=== PATIENT | female | born 1980 | race Caucasian/White ===

== ENCOUNTER 2016-02-18 15:40 | Emergency (ER) | payer MEDICARE, MEDICAID ==
[~2016-02-18 15:40] MED LIST: ALBUTEROL0.83 MG/ML IH; CLARITIN 10MG T10 MG PO; COGENTIN0.5 MG PO; DULERA1 AR1 IH; FLEXERIL 1010 MG/TAB PO; FLONASE NASAL S16 GM NS; K-DUR 2020 MEQ PO; K-POTASSIUM CH20 ME1 PO; LASIX20 MG PO; LEVOTHYROXIN0.175 MG PO; MINIPRESS 5M5 MG/CAP PO; MINIPRESS5 MG PO; MIRTAZAPINE7.5 MG PO; PEPCID 20MG TAB20 MG PO; PREMARIN 0.3MG0.3 MG PO; PREMARIN0.9 MG PO; PRILOSEC 20MG20 MG PO; PROVENTIL0.09 MG/A1 IH; SINGULAIR10 MG PO; SYNTHROID0.05 MG/TA PO; TOPAMAX100 MG PO; TOPAMAX200 MG PO; VENTOLIN0.09 MG IH; VERAPAMIL240 MG PO; VERAPAMIL240 MG/TAB PO; VISTARIL25 MG PO; ZITHROMAX 250M250 MG PO; ZOLOFT 100MG100 MG PO; ZOLOFT100 MG PO; ZYPREXA ZYDIS10 MG PO; ZYPREXA15 MG PO; ZYRTEC10 MG PO
[2016-02-18] MEDS ORDERED: LEVOTHYROXINE0.2 MG PO (16:05)
[2016-02-18] MEDS ORDERED: ZYRTEC10 M3 PO (16:06)
[2016-02-18] MEDS ORDERED: FUROSEMIDE (16:06)
[2016-02-18] MEDS ORDERED: EFFEXOR PO (16:08)
[2016-02-18] MEDS ORDERED: LATUDA40 MG (16:08)
[2016-02-18] MEDS ORDERED: ZITHROMAX Z PA250 MG PO (16:26)
[2016-02-18 16:38] VITALS: BP 138/83
[2016-04-23] MEDS ORDERED: VRAYLAR3 MG PO (22:19)
== END 2016-02-18 16:40 | disposition home or self-care (01) ==
LOC: ED 15:40
DX: J40 Bronchitis, not specified as acute or chronic (principal); J45.909 Unspecified asthma, uncomplicated; Z87.891 Personal history of nicotine dependence

== ENCOUNTER 2016-04-23 22:45 | Emergency (ER) | payer MEDICARE, MEDICAID ==
[~2016-04-23 22:45] MED LIST changes: +EFFEXOR PO; +FUROSEMIDE; +LATUDA40 MG; +LEVOTHYROXINE0.2 MG PO; +VRAYLAR3 MG PO; +ZITHROMAX Z PA250 MG PO; +ZYRTEC10 M3 PO
[2016-04-23] MEDS ORDERED: DOXYCYCLINE 10100 MG PO (22:53)
== END 2016-04-23 23:06 | disposition home or self-care (01) ==
LOC: ED 22:45
DX: L03.012 Cellulitis of left finger (principal)

== ENCOUNTER 2016-04-25 22:06 | Emergency (ER) | payer MEDICARE, MEDICAID ==
[~2016-04-25 22:06] MED LIST changes: +DOXYCYCLINE 10100 MG PO
== END 2016-04-25 22:18 | disposition home or self-care (01) ==
LOC: ED 22:06
DX: L03.011 Cellulitis of right finger (principal); R11.0 Nausea

== ENCOUNTER 2016-05-28 22:53 | Emergency (ER) | payer MEDICARE, MEDICAID ==
[2016-05-29] MEDS ORDERED: TESSALON PERLE100 M1 PO (00:45)
[2016-05-29 01:02] VITALS: BP 127/75
== END 2016-05-29 00:56 | disposition home or self-care (01) ==
LOC: ED 22:53
DX: R05 Cough (principal); K21.9 Gastro-esophageal reflux disease without esophagitis; R07.89 Other chest pain; J45.909 Unspecified asthma, uncomplicated; F17.210 Nicotine dependence, cigarettes, uncomplicated

== ENCOUNTER 2016-06-28 22:48 | Emergency (ER) | payer MEDICARE, MEDICAID ==
[~2016-06-28] VITALS: Ht 167.6 cm; Wt 155.9 kg
[~2016-06-28 22:48] MED LIST changes: +TESSALON PERLE100 M1 PO
[2016-06-29] MEDS ORDERED: MACROBID 100 M100 MG PO (00:16)
[2016-06-29] MEDS ORDERED: PYRIDIUM100 M1 PO (00:18)
[2016-06-29 00:56] VITALS: BP 130/90
== END 2016-06-29 00:56 | disposition home or self-care (01) ==
LOC: ED 22:48
DX: N39.0 Urinary tract infection, site not specified (principal); I10 Essential (primary) hypertension; K21.9 Gastro-esophageal reflux disease without esophagitis; Z85.41 Personal history of malignant neoplasm of cervix uteri; F43.10 Post-traumatic stress disorder, unspecified; F60.9 Personality disorder, unspecified; F25.9 Schizoaffective disorder, unspecified; F41.9 Anxiety disorder, unspecified
CPT/HCPCS: J1885; J2405; J7030

== ENCOUNTER 2016-08-01 22:41 | Emergency (ER) | payer MEDICARE, MEDICAID ==
[~2016-08-01] VITALS: Ht 167.6 cm; Wt 157.7 kg
[~2016-08-01 22:41] MED LIST changes: +MACROBID 100 M100 MG PO; +PYRIDIUM100 M1 PO
[2016-08-01] MEDS ORDERED: LASIX20 M1 PO (23:28)
[2016-08-01] MEDS ORDERED: ULTRAM50 M1 PO (23:29)
[2016-08-02 01:02] VITALS: BP 111/72
== END 2016-08-02 00:48 | disposition home or self-care (01) ==
LOC: ED 22:41
DX: G44.009 Cluster headache syndrome, unspecified, not intractable (principal); G43.809 Other migraine, not intractable, without status migrainosus; J45.909 Unspecified asthma, uncomplicated; F32.9 Major depressive disorder, single episode, unspecified
CPT/HCPCS: J3030

== ENCOUNTER 2016-08-20 15:06 | Emergency (ER) | payer MEDICARE, MEDICAID ==
[~2016-08-20] VITALS: Wt 162.7 kg
[~2016-08-20 15:06] MED LIST changes: +LASIX20 M1 PO; +ULTRAM50 M1 PO
[2016-08-20 15:15] VITALS: BP 142/104
[2016-08-20] MEDS ORDERED: IMITREX100 M1 PO (15:15)
[2016-08-20] MEDS ORDERED: ZOFRAN8 MG PO (15:15)
== END 2016-08-20 17:30 | disposition home or self-care (01) ==
LOC: ED 15:06
DX: S93.401A Sprain of unspecified ligament of right ankle, initial encounter (principal); X50.1XXA Overexertion from prolonged static or awkward postures, initial encounter; Y92.008 Other place in unspecified non-institutional (private) residence as the place of occurrence of the external cause; F32.9 Major depressive disorder, single episode, unspecified; F25.9 Schizoaffective disorder, unspecified

== ENCOUNTER 2016-11-21 21:53 | Emergency (ER) | payer MEDICARE, MEDICAID ==
[~2016-11-21] VITALS: Ht 165.1 cm; Wt 165.0 kg
[~2016-11-21 21:53] MED LIST changes: +IMITREX100 M1 PO; +VRAYLAR6 MG PO; +ZOFRAN8 MG PO
[2016-11-21] MEDS ORDERED: LITHIUM 30300 MG/CAP PO (22:12)
[2016-11-21 22:13] VITALS: BP 157/102
[2016-11-21] MEDS ORDERED: TUSSIONEX PENN115 ML PO (22:29)
[2016-11-21] MEDS ORDERED: CEFDINIR300 MG PO (22:29)
== END 2016-11-21 22:45 | disposition home or self-care (01) ==
LOC: ED 21:53
DX: J01.90 Acute sinusitis, unspecified (principal); F17.200 Nicotine dependence, unspecified, uncomplicated; F99 Mental disorder, not otherwise specified

== ENCOUNTER 2016-12-11 16:32 | Emergency (ER) | payer MEDICARE, MEDICAID ==
[~2016-12-11] VITALS: Ht 167.6 cm; Wt 165.0 kg
[~2016-12-11 16:32] MED LIST changes: +CEFDINIR300 MG PO; +LITHIUM 30300 MG/CAP PO; +TUSSIONEX PENN115 ML PO
[2016-12-11] MEDS ORDERED: ALBUTEROL2.5 MG/3 M IH (17:12)
[2016-12-11] MEDS ORDERED: PROAIR HFA0.09 MG/AC PO (17:12)
[2016-12-11 18:03] LABS: BASO # 0.1 (0.02-0.10); EOS % 6.1 % (1.0-5.0); HEMATOCRIT 40.3 % (37.0-47.0); MEAN CELL VOLUME 89 fl (78-100); MEAN CORPUSCULAR HEMOGLOBIN 29 pg (27-31); MEAN CORPUSCULAR HGB CONC 32 g/dL (33-37); MEAN PLATELET VOLUME 8.7 fl (7.4-10.4); MONO # 0.7 (0.20-0.80); NEU # 5.2 (1.40-6.50); PLATELET COUNT 352 K/mm3 (130-400); RED BLOOD COUNT 4.52 M/mm3 (4.10-5.30); RED CELL DISTRIBUTION WIDTH 13.8 % (11.5-14.5); WHITE BLOOD COUNT 10.6 K/mm3 (4.8-10.8)
[2016-12-11 18:05] LABS: EOS # 0.7 (0.04-0.40)
[2016-12-11 18:13] LABS: BUN/CREATININE RATIO 3.2 (6.0-26.0); CALCIUM 8.8 mg/dL (8.4-10.2); POTASSIUM 3.6 mmol/L (3.6-5.0)
[2016-12-11] MEDS ORDERED: GOOD NEIGHBOR P20 M1 PO (18:24)
[2016-12-11] MEDS ORDERED: TESSALON PERLE100 M1 PO (18:55)
[2016-12-11 19:08] VITALS: BP 131/89
== END 2016-12-11 19:10 | disposition home or self-care (01) ==
LOC: ED 16:32
PROVIDERS: Family Medicine
DX: K21.9 Gastro-esophageal reflux disease without esophagitis (principal); E66.01 Morbid (severe) obesity due to excess calories; Z68.43 Body mass index [BMI] 50.0-59.9, adult; F99 Mental disorder, not otherwise specified; E89.0 Postprocedural hypothyroidism; Z85.41 Personal history of malignant neoplasm of cervix uteri; R60.0 Localized edema

== ENCOUNTER 2017-01-06 20:36 | Emergency (ER) | payer MEDICARE, MEDICAID ==
[~2017-01-06] VITALS: Ht 165.1 cm; Wt 160.5 kg
[~2017-01-06 20:36] MED LIST changes: +ALBUTEROL2.5 MG/3 M IH; +GOOD NEIGHBOR P20 M1 PO; +PROAIR HFA0.09 MG/AC PO
[2017-01-06 21:10] LABS: BASO # 0.1 (0.02-0.10); EOS % 6.3 % (1.0-5.0); HEMATOCRIT 41.5 % (37.0-47.0); HEMOGLOBIN 13.4 g/dL (12.5-16.0); LYMPH# 3.5 (1.50-4.00); MEAN CELL VOLUME 88 fl (78-100); MEAN CORPUSCULAR HEMOGLOBIN 28 pg (27-31); MEAN CORPUSCULAR HGB CONC 32 g/dL (33-37); MEAN PLATELET VOLUME 8.8 fl (7.4-10.4); MONO # 0.8 (0.20-0.80); NEU # 7.9 (1.40-6.50); PLATELET COUNT 312 K/mm3 (130-400); RED BLOOD COUNT 4.73 M/mm3 (4.10-5.30); RED CELL DISTRIBUTION WIDTH 14.3 % (11.5-14.5); WHITE BLOOD COUNT 13.1 K/mm3 (4.8-10.8)
[2017-01-06 21:15] LABS: EOS # 0.8 (0.04-0.40)
[2017-01-06 21:22] LABS: ALBUMIN 3.9 g/dL (3.5-5.0); BUN/CREATININE RATIO 5.6 (6.0-26.0); CALCIUM 8.9 mg/dL (8.4-10.2); POTASSIUM 3.8 mmol/L (3.6-5.0); TOTAL BILIRUBIN 0.5 mg/dL (0.2-1.3)
[2017-01-06 21:55] LABS: URINE APPEARANCE HAZY; URINE BILIRUBIN NEGATIVE (NEGATIVE); URINE BLOOD NEGATIVE (NEGATIVE); URINE COLOR YELLOW; URINE GLUCOSE NEGATIVE (NEGATIVE); URINE KETONE NEGATIVE (NEGATIVE); URINE LEUKOCYTE ESTERASE 1+ (NEGATIVE); URINE NITRATE NEGATIVE (NEGATIVE); URINE PROTEIN(semi-quant) NEGATIVE (NEGATIVE); URINE UROBILINOGEN NORMAL (NORMAL)
[2017-01-06] MEDS ORDERED: ONDANSETRON ODT8 MG PO (22:00)
[2017-01-06] MEDS ORDERED: NORCO 325 MG-51 TA1 PO (22:00)
[2017-01-06] MEDS ORDERED: CARAFATE1 GM/10 M1 PO (22:06)
[2017-01-06 22:13] VITALS: BP 135/98
== END 2017-01-06 22:10 | disposition home or self-care (01) ==
LOC: ED 20:36
PROVIDERS: Family Medicine
DX: K52.9 Noninfective gastroenteritis and colitis, unspecified (principal); K21.9 Gastro-esophageal reflux disease without esophagitis; K29.70 Gastritis, unspecified, without bleeding; N39.0 Urinary tract infection, site not specified; E89.0 Postprocedural hypothyroidism; F99 Mental disorder, not otherwise specified; Z87.891 Personal history of nicotine dependence

== ENCOUNTER 2017-02-17 14:13 | Emergency (ER) | payer MEDICARE ==
[~2017-02-17] VITALS: Ht 165.1 cm; Wt 167.7 kg
[~2017-02-17 14:13] MED LIST changes: +CARAFATE1 GM/10 M1 PO; +K-TAB20 MEQ PO; +KLONOPIN 1MG1 MG PO; +METOCLOPRAMIDE10 M5 PO; +NORCO 325 MG-51 TA1 PO; +ONDANSETRON ODT8 MG PO
[2017-02-17 15:02] LABS: BASO # 0.1 (0.02-0.10); EOS % 6.1 % (1.0-5.0); HEMATOCRIT 41.6 % (37.0-47.0); HEMOGLOBIN 12.8 g/dL (12.5-16.0); LYMPH# 3.7 (1.50-4.00); MEAN CELL VOLUME 91 fl (78-100); MEAN CORPUSCULAR HEMOGLOBIN 28 pg (27-31); MEAN CORPUSCULAR HGB CONC 31 g/dL (33-37); MEAN PLATELET VOLUME 8.7 fl (7.4-10.4); MONO # 0.7 (0.20-0.80); NEU # 5.9 (1.40-6.50); PLATELET COUNT 352 K/mm3 (130-400); RED BLOOD COUNT 4.57 M/mm3 (4.10-5.30); RED CELL DISTRIBUTION WIDTH 14.9 % (11.5-14.5)
[2017-02-17 15:19] LABS: EOS # 0.7 (0.04-0.40)
[2017-02-17 15:47] LABS: ALBUMIN 3.7 g/dL (3.5-5.0); ALT/SGPT 34 U/L (9-52); AST-SGOT 25 U/L (14-36); BUN/CREATININE RATIO 3.9 (6.0-26.0); CALCIUM 8.8 mg/dL (8.4-10.2); GLUCOSE 92 mg/dL (65-105); TOTAL BILIRUBIN 0.4 mg/dL (0.2-1.3); TOTAL PROTEIN 6.9 g/dL (6.3-8.2)
[2017-02-17 15:57] LABS: ACETAMINOPHEN < 4 ug/mL (10-30); ALCOHOL IN-HOUSE < 10 mg/dL
[2017-02-17 15:58] LABS: CARBON DIOXIDE 28 mmol/L (22-30); POTASSIUM 3.4 mmol/L (3.6-5.0); SODIUM 145 mmol/L (137-145)
[2017-02-17 16:24] LABS: URINE COLOR PALE YELLOW
[2017-02-17 16:26] LABS: URINE APPEARANCE CLEAR
[2017-02-17 16:27] LABS: PH-URINE 6.5 (5.0 - 8.0); URINE BILIRUBIN NEGATIVE (NEGATIVE); URINE BLOOD NEGATIVE (NEGATIVE); URINE GLUCOSE NEGATIVE (NEGATIVE); URINE KETONE NEGATIVE (NEGATIVE); URINE LEUKOCYTE ESTERASE NEGATIVE (NEGATIVE); URINE NITRATE NEGATIVE (NEGATIVE); URINE PROTEIN(semi-quant) TRACE mg/dL (NEGATIVE); URINE UROBILINOGEN NORMAL (NORMAL); URINE WBC 0-1 /hpf (0-3)
[2017-02-18 00:30] VITALS: BP 140/90
== END 2017-02-18 00:37 ==
LOC: ED 14:13
PROVIDERS: Physician Assistant
DX: T42.4X2A Poisoning by benzodiazepines, intentional self-harm, initial encounter (principal); K21.9 Gastro-esophageal reflux disease without esophagitis; K31.84 Gastroparesis; E03.9 Hypothyroidism, unspecified; F31.9 Bipolar disorder, unspecified; F41.9 Anxiety disorder, unspecified; F25.9 Schizoaffective disorder, unspecified; F60.3 Borderline personality disorder; Z87.891 Personal history of nicotine dependence; Z88.6 Allergy status to analgesic agent; Z88.3 Allergy status to other anti-infective agents; Z88.0 Allergy status to penicillin; Z88.2 Allergy status to sulfonamides; Z88.8 Allergy status to other drugs, medicaments and biological substances; Z91.018 Allergy to other foods

== ENCOUNTER 2017-03-03 00:13 | Emergency (ER) | payer MEDICARE ==
[~2017-03-03] VITALS: Ht 165.1 cm; Wt 171.4 kg
[~2017-03-03 00:13] MED LIST changes: +BENZTROPINE1 MG PO; -COGENTIN0.5 MG PO; -MINIPRESS 5M5 MG/CAP PO; +MINIPRESS5 M1 PO
[2017-03-03] MEDS ORDERED: POTASSIUM CHLO20 ME3 PO (00:21)
[2017-03-03] MEDS ORDERED: LITHOBID PO (00:22)
[2017-03-03] MEDS ORDERED: SYNTHROID175 MCG PO (00:23)
[2017-03-03] MEDS ORDERED: PHENERGAN 25 TA25 MG PO (00:25)
[2017-03-03 01:38] LABS: BASO # 0.1 (0.02-0.10); EOS % 6.2 % (1.0-5.0); HEMOGLOBIN 12.8 g/dL (12.5-16.0); MEAN CELL VOLUME 91 fl (78-100); MEAN CORPUSCULAR HEMOGLOBIN 28 pg (27-31); MEAN CORPUSCULAR HGB CONC 31 g/dL (33-37); MEAN PLATELET VOLUME 8.8 fl (7.4-10.4); MONO # 0.7 (0.20-0.80); NEU # 6.8 (1.40-6.50); PLATELET COUNT 373 K/mm3 (130-400); RED BLOOD COUNT 4.64 M/mm3 (4.10-5.30); RED CELL DISTRIBUTION WIDTH 15.1 % (11.5-14.5); WHITE BLOOD COUNT 12.9 K/mm3 (4.8-10.8)
[2017-03-03 01:41] LABS: EOS # 0.8 (0.04-0.40); LYMPH# 4.6 (1.50-4.00)
[2017-03-03] MEDS ORDERED: ZITHROMAX 250M250 MG PO (02:15)
[2017-03-03] MEDS ORDERED: PREDNISONE20 MG PO (02:17)
[2017-03-03] MEDS ORDERED: XOPENEX 3 ML3 M3 IH (02:27)
[2017-03-03 02:40] VITALS: BP 123/82
== END 2017-03-03 02:40 | disposition home or self-care (01) ==
LOC: ED 00:13
PROVIDERS: Nurse Practitioner Family
DX: J45.901 Unspecified asthma with (acute) exacerbation (principal); J20.9 Acute bronchitis, unspecified; Z87.891 Personal history of nicotine dependence; F31.9 Bipolar disorder, unspecified; F41.9 Anxiety disorder, unspecified; F25.9 Schizoaffective disorder, unspecified
CPT/HCPCS: J7512

== ENCOUNTER → 2017-03-06 | Outpatient (CLI) | payer MEDICARE ==
[~2017-03-06] VITALS: Ht 165.1 cm; Wt 171.4 kg
[~2017-03-06] MED LIST changes: +LITHOBID PO; +PHENERGAN 25 TA25 MG PO; +POTASSIUM CHLO20 ME3 PO; +PREDNISONE20 MG PO; +SYNTHROID175 MCG PO; +XOPENEX 3 ML3 M3 IH
--- NOTE | 2017-03-06 10:40 | NUR ---
# 20 GAUGE TO RIGHT AC, LAB DRAWN, IVF INITIATED, PATIENT VERY TAKLKATIVE, STATING "I DONT KNOW WHY I HAVE TO DO THIS, I DONT THINK IM DEHYDRATEDM BUT THAT NURSE WANTED ME TO COME, AND SHE TOLD ME I MAY HAVE TO STAY OVERNIGHT", PATIENT DOES STATE SHE HAS BEEN SOMEWHAT ON CLEAR LIQUIDS AT HOME, DESCRIBES OCCASIONAL EMESIS AND ONE TIME DIARRHEA IN THE NIGHT.
[2017-03-06 11:07] LABS: HEMATOCRIT 40.5 % (37.0-47.0); HEMOGLOBIN 12.3 g/dL (12.5-16.0); RED BLOOD COUNT 4.42 M/mm3 (4.10-5.30); RED CELL DISTRIBUTION WIDTH 14.8 % (11.5-14.5); WHITE BLOOD COUNT 14.6 K/mm3 (4.8-10.8)
--- NOTE | 2017-03-06 11:11 | NUR ---
ua collected, spec to lab
[2017-03-06 11:13] VITALS: BP 163/109
[2017-03-06 11:31] LABS: ALBUMIN 3.8 g/dL (3.5-5.0); BUN/CREATININE RATIO 6.7 (6.0-26.0); CALCIUM 8.6 mg/dL (8.4-10.2); POTASSIUM 3.1 mmol/L (3.6-5.0); TOTAL BILIRUBIN 0.3 mg/dL (0.2-1.3); TOTAL PROTEIN 6.5 g/dL (6.3-8.2)
--- NOTE | 2017-03-06 11:38 | NUR ---
SPRITE GIVEN, PATIENT ENCOURAGED TO SIP SLOWLY, EMESIS BAG GIVEN, SHE HAS MADE NO MENTION PRIOR TO THIS OF ANY NAUSEA OR NEED TO HAVE BM
[2017-03-06 11:47] LABS: URINE APPEARANCE HAZY; URINE BILIRUBIN NEGATIVE (NEGATIVE); URINE BLOOD NEGATIVE (NEGATIVE); URINE COLOR YELLOW; URINE GLUCOSE NEGATIVE (NEGATIVE); URINE KETONE NEGATIVE (NEGATIVE); URINE LEUKOCYTE ESTERASE 1+ (NEGATIVE); URINE MUCUS PRESENT (NOT PRESENT); URINE NITRATE NEGATIVE (NEGATIVE); URINE PROTEIN(semi-quant) TRACE mg/dL (NEGATIVE); URINE UROBILINOGEN NORMAL (NORMAL)
--- NOTE | 2017-03-06 12:13 | NUR ---
Flaquito LAZCANO APRN NOTIFIED OF OUTPATIENT RESULTS, ORDERS
--- NOTE | 2017-03-06 12:27 | NUR ---
PATIENT GIVEN CHKN NOODLE SOUP, CRACKERS AND AN ADDITIONAL SPRITE, SHE TAKES ALL THIS.
[2017-03-06 13:03] VITALS: BP 141/62
--- NOTE | 2017-03-06 13:04 | NUR ---
IV DC'D, BANDAID TO SITE, INSTRUCTIONS TO CONTINUE/MAINTAIN CLEAR LIQUID-BLAND DIET UNTIL NAUSEA/VOMITING CEASES, RETURN VISIT WITH Flaquito LAZCANO THIS MONDAY AT 0930. PATIENT AND SPOUSE AGREE, DISMISSED AMBULATORY TO CARE OF SPOUSE, SHE CONTINUES TO DENY NAUSEA OR NEED FOR BM, STATES SHES GOING TO GO HOME AND NAP
== END ==
LOC: AMSURD 10:15
PROVIDERS: Nurse Practitioner Family
DX: N39.0 Urinary tract infection, site not specified (principal); E86.0 Dehydration; R11.10 Vomiting, unspecified; R19.7 Diarrhea, unspecified
CPT/HCPCS: J2405; J7030

== ENCOUNTER 2017-03-22 17:19 | Emergency (ER) | payer MEDICARE ==
[2017-03-22] MEDS ORDERED: VIBRAMYCIN HYC100 MG PO (17:43)
[2017-03-22] MEDS ORDERED: IPRATROPIUM BROM3 M1 IH (18:00)
[2017-03-22] MEDS ORDERED: PREDNISONE20 M1 PO (18:00)
[2017-03-22 18:14] VITALS: BP 136/83
== END 2017-03-22 18:19 | disposition home or self-care (01) ==
LOC: ED 17:19
DX: J20.9 Acute bronchitis, unspecified (principal); I10 Essential (primary) hypertension; F17.200 Nicotine dependence, unspecified, uncomplicated; J45.909 Unspecified asthma, uncomplicated; F99 Mental disorder, not otherwise specified; Z88.6 Allergy status to analgesic agent; Z88.1 Allergy status to other antibiotic agents; Z88.0 Allergy status to penicillin; Z88.2 Allergy status to sulfonamides; Z88.8 Allergy status to other drugs, medicaments and biological substances; Z91.018 Allergy to other foods
CPT/HCPCS: J7512

== ENCOUNTER 2017-03-28 16:58 | Emergency (ER) | payer MEDICARE ==
[~2017-03-28 16:58] MED LIST changes: +IPRATROPIUM BROM3 M1 IH; +PREDNISONE20 M1 PO; +VIBRAMYCIN HYC100 MG PO
[2017-03-28 18:03] LABS: BASO # 0.1 (0.02-0.10); EOS % 4.6 % (1.0-5.0); HEMATOCRIT 43.2 % (37.0-47.0); HEMOGLOBIN 13.3 g/dL (12.5-16.0); LYMPH# 4.1 (1.50-4.00); MEAN CELL VOLUME 91 fl (78-100); MEAN CORPUSCULAR HEMOGLOBIN 28 pg (27-31); MEAN CORPUSCULAR HGB CONC 31 g/dL (33-37); MEAN PLATELET VOLUME 8.5 fl (7.4-10.4); MONO # 0.8 (0.20-0.80); PLATELET COUNT 384 K/mm3 (130-400); RED BLOOD COUNT 4.73 M/mm3 (4.10-5.30); RED CELL DISTRIBUTION WIDTH 15.3 % (11.5-14.5); WHITE BLOOD COUNT 16.2 K/mm3 (4.8-10.8)
[2017-03-28 18:12] LABS: EOS # 0.7 (0.04-0.40); NEU # 10.5 (1.40-6.50)
[2017-03-28 18:15] LABS: ALBUMIN 3.8 g/dL (3.5-5.0); BUN/CREATININE RATIO 4.9 (6.0-26.0); POTASSIUM 3.9 mmol/L (3.6-5.0); TOTAL BILIRUBIN 0.3 mg/dL (0.2-1.3); TOTAL PROTEIN 7.1 g/dL (6.3-8.2)
[2017-03-28 18:52] LABS: CALCIUM 8.7 mg/dL (8.4-10.2)
[2017-03-28 19:50] LABS: URINE APPEARANCE HAZY; URINE COLOR LT YELLOW
[2017-03-28 19:57] LABS: PH-URINE 6.5 (5.0 - 8.0); URINE BILIRUBIN NEGATIVE (NEGATIVE); URINE BLOOD NEGATIVE (NEGATIVE); URINE GLUCOSE NEGATIVE (NEGATIVE); URINE KETONE NEGATIVE (NEGATIVE); URINE LEUKOCYTE ESTERASE NEGATIVE (NEGATIVE); URINE NITRATE NEGATIVE (NEGATIVE); URINE PROTEIN(semi-quant) NEGATIVE (NEGATIVE); URINE UROBILINOGEN NORMAL (NORMAL)
[2017-03-28 20:11] VITALS: BP 157/104
== END 2017-03-28 20:11 | disposition home or self-care (01) ==
LOC: ED 16:58
PROVIDERS: Nurse Practitioner; Physician Assistant
DX: J98.9 Respiratory disorder, unspecified (principal); B34.9 Viral infection, unspecified; F25.1 Schizoaffective disorder, depressive type; F41.9 Anxiety disorder, unspecified; F43.10 Post-traumatic stress disorder, unspecified; F60.9 Personality disorder, unspecified; Z87.891 Personal history of nicotine dependence; E66.01 Morbid (severe) obesity due to excess calories; Z88.6 Allergy status to analgesic agent; Z88.1 Allergy status to other antibiotic agents; Z88.0 Allergy status to penicillin; Z88.2 Allergy status to sulfonamides; Z88.8 Allergy status to other drugs, medicaments and biological substances; Z91.018 Allergy to other foods

== ENCOUNTER 2017-04-08 15:42 | Emergency (ER) | payer MEDICARE ==
[~2017-04-08] VITALS: Wt 167.2 kg
[~2017-04-08 15:42] MED LIST changes: +KLONOPIN 0.5MG0.5 MG PO; -KLONOPIN 1MG1 MG PO
[2017-04-08 16:57] LABS: BUN/CREATININE RATIO 4.1 (6.0-26.0); CALCIUM 8.7 mg/dL (8.4-10.2)
[2017-04-08 16:58] LABS: POTASSIUM 2.8 mmol/L (3.6-5.0)
[2017-04-08 20:35] LABS: HEMATOCRIT 40.7 % (37.0-47.0)
[2017-04-08 20:58] VITALS: BP 152/98
== END 2017-04-08 20:58 | disposition home or self-care (01) ==
LOC: ED 15:42
PROVIDERS: Family Medicine
DX: E87.6 Hypokalemia (principal); I10 Essential (primary) hypertension; F31.9 Bipolar disorder, unspecified; K21.9 Gastro-esophageal reflux disease without esophagitis; E66.9 Obesity, unspecified; R20.2 Paresthesia of skin; R53.1 Weakness
CPT/HCPCS: J3480

== ENCOUNTER 2017-04-11 19:52 | Emergency (ER) | payer MEDICARE ==
[~2017-04-11] VITALS: Ht 167.6 cm; Wt 166.8 kg
[2017-04-11 20:36] LABS: BASO # 0.1 (0.02-0.10); EOS # 0.4 (0.04-0.40); EOS % 3.4 % (1.0-5.0); HEMATOCRIT 41.1 % (37.0-47.0); LYMPH# 3.3 (1.50-4.00); MEAN CELL VOLUME 90 fl (78-100); MEAN CORPUSCULAR HEMOGLOBIN 28 pg (27-31); MEAN CORPUSCULAR HGB CONC 32 g/dL (33-37); MONO # 0.8 (0.20-0.80); NEU # 8.2 (1.40-6.50); PLATELET COUNT 406 K/mm3 (130-400); RED BLOOD COUNT 4.58 M/mm3 (4.10-5.30); RED CELL DISTRIBUTION WIDTH 15.7 % (11.5-14.5); WHITE BLOOD COUNT 12.8 K/mm3 (4.8-10.8)
[2017-04-11 20:50] LABS: ALBUMIN 3.8 g/dL (3.5-5.0); ALT/SGPT 32 U/L (9-52); AST-SGOT 29 U/L (14-36); BUN/CREATININE RATIO 4.1 (6.0-26.0); CALCIUM 9.1 mg/dL (8.4-10.2); CARBON DIOXIDE 25 mmol/L (22-30); GLUCOSE 103 mg/dL (65-105); POTASSIUM 3.5 mmol/L (3.6-5.0); SODIUM 145 mmol/L (137-145); TOTAL BILIRUBIN 0.3 mg/dL (0.2-1.3)
[2017-04-11 20:52] LABS: ALCOHOL IN-HOUSE < 10 mg/dL
[2017-04-11 20:54] LABS: URINE APPEARANCE CLEAR; URINE BILIRUBIN NEGATIVE (NEGATIVE); URINE BLOOD NEGATIVE (NEGATIVE); URINE COLOR YELLOW; URINE GLUCOSE NEGATIVE (NEGATIVE); URINE KETONE NEGATIVE (NEGATIVE); URINE LEUKOCYTE ESTERASE NEGATIVE (NEGATIVE); URINE NITRATE NEGATIVE (NEGATIVE); URINE PROTEIN(semi-quant) NEGATIVE (NEGATIVE); URINE UROBILINOGEN NORMAL (NORMAL)
[2017-04-11 20:56] LABS: URINE MUCUS PRESENT (NOT PRESENT); URINE WBC 0-1 /hpf (0-3)
[2017-04-11 22:02] VITALS: BP 160/90
== END 2017-04-11 22:02 | disposition home or self-care (01) ==
LOC: ED 19:52
PROVIDERS: Nurse Practitioner
DX: F32.9 Major depressive disorder, single episode, unspecified (principal); R45.851 Suicidal ideations; I10 Essential (primary) hypertension; F20.9 Schizophrenia, unspecified; F43.10 Post-traumatic stress disorder, unspecified; F60.3 Borderline personality disorder; Z85.41 Personal history of malignant neoplasm of cervix uteri; Z90.710 Acquired absence of both cervix and uterus; E89.0 Postprocedural hypothyroidism; Z91.5 Personal history of self-harm; Z87.891 Personal history of nicotine dependence; Z88.6 Allergy status to analgesic agent; Z88.1 Allergy status to other antibiotic agents; Z88.0 Allergy status to penicillin; Z88.2 Allergy status to sulfonamides; Z88.8 Allergy status to other drugs, medicaments and biological substances; Z91.018 Allergy to other foods

== ENCOUNTER 2017-04-20 23:02 | Emergency (ER) | payer MEDICARE ==
[~2017-04-20] VITALS: Ht 167.6 cm; Wt 164.1 kg
[2017-04-20] MEDS ORDERED: KLOR-CON 1010 MEQ PO (23:18)
[2017-04-21 00:17] LABS: BASO # 0.1 (0.02-0.10); EOS # 0.5 (0.04-0.40); EOS % 4.2 % (1.0-5.0); HEMATOCRIT 39.8 % (37.0-47.0); HEMOGLOBIN 12.6 g/dL (12.5-16.0); LYMPH# 2.9 (1.50-4.00); MEAN CELL VOLUME 91 fl (78-100); MEAN CORPUSCULAR HEMOGLOBIN 29 pg (27-31); MEAN CORPUSCULAR HGB CONC 32 g/dL (33-37); MEAN PLATELET VOLUME 8.9 fl (7.4-10.4); MONO # 0.7 (0.20-0.80); PLATELET COUNT 351 K/mm3 (130-400); RED CELL DISTRIBUTION WIDTH 14.9 % (11.5-14.5); WHITE BLOOD COUNT 12.1 K/mm3 (4.8-10.8)
[2017-04-21 00:24] LABS: BUN/CREATININE RATIO 3.8 (6.0-26.0); CALCIUM 8.7 mg/dL (8.4-10.2); CARBON DIOXIDE 25 mmol/L (22-30); GLUCOSE 103 mg/dL (65-105); POTASSIUM 3.6 mmol/L (3.6-5.0); SODIUM 138 mmol/L (137-145)
[2017-04-21 00:30] LABS: ACETAMINOPHEN < 4 ug/mL (10-30); ALCOHOL IN-HOUSE < 10 mg/dL
[2017-04-21 00:35] LABS: URINE APPEARANCE CLEAR; URINE BILIRUBIN NEGATIVE (NEGATIVE); URINE BLOOD NEGATIVE (NEGATIVE); URINE COLOR YELLOW; URINE GLUCOSE NEGATIVE (NEGATIVE); URINE KETONE NEGATIVE (NEGATIVE); URINE LEUKOCYTE ESTERASE NEGATIVE (NEGATIVE); URINE NITRATE NEGATIVE (NEGATIVE); URINE PROTEIN(semi-quant) NEGATIVE (NEGATIVE); URINE UROBILINOGEN NORMAL (NORMAL); URINE WBC 0-1 /hpf (0-3)
[2017-04-21 05:17] VITALS: BP 134/75
== END 2017-04-21 05:17 ==
LOC: ED 23:02
PROVIDERS: Nurse Practitioner Family
DX: R45.851 Suicidal ideations (principal); F25.9 Schizoaffective disorder, unspecified; Z91.5 Personal history of self-harm; F31.9 Bipolar disorder, unspecified; F41.9 Anxiety disorder, unspecified; F43.10 Post-traumatic stress disorder, unspecified; Z85.41 Personal history of malignant neoplasm of cervix uteri; E89.0 Postprocedural hypothyroidism; Z88.6 Allergy status to analgesic agent; Z88.4 Allergy status to anesthetic agent; Z88.0 Allergy status to penicillin; Z88.2 Allergy status to sulfonamides; Z88.8 Allergy status to other drugs, medicaments and biological substances; Z91.018 Allergy to other foods

== ENCOUNTER 2017-05-01 19:23 | Emergency (ER) | payer MEDICARE ==
[~2017-05-01] VITALS: Ht 167.6 cm; Wt 163.6 kg
[~2017-05-01 19:23] MED LIST changes: +KLOR-CON 1010 MEQ PO
[2017-05-01 19:58] LABS: HEMATOCRIT 32.7 % (37.0-47.0); HEMOGLOBIN 10.1 g/dL (12.5-16.0); MEAN CELL VOLUME 93 fl (78-100); MEAN CORPUSCULAR HEMOGLOBIN 29 pg (27-31); MEAN CORPUSCULAR HGB CONC 31 g/dL (33-37); MEAN PLATELET VOLUME 9.4 fl (7.4-10.4); PLATELET COUNT 480 K/mm3 (130-400); RED BLOOD COUNT 3.53 M/mm3 (4.10-5.30); RED CELL DISTRIBUTION WIDTH 15.7 % (11.5-14.5); WHITE BLOOD COUNT 17.3 K/mm3 (4.8-10.8)
[2017-05-01] MEDS ORDERED: LASIX40 M1 PO (20:08)
[2017-05-01] MEDS ORDERED: LEVOTHYROXINE0.15 MG PO (20:09)
[2017-05-01] MEDS ORDERED: NORCO 325 MG-51 TA1 PO ×2 (20:10→20:11)
[2017-05-01] MEDS ORDERED: TOPAMAX100 MG PO (20:11)
[2017-05-01] MEDS ORDERED: DOXYCYCLINE MO100 M3 PO (20:12)
[2017-05-01] MEDS ORDERED: SAPHRIS5 MG PO (20:13)
[2017-05-01] MEDS ORDERED: OMEPRAZOLE40 MG PO (20:13)
[2017-05-01 20:18] LABS: LYMPHOCYTE 22 % (20-51); MONOCYTE 6 % (3-10); NEUTROPHILS 68 % (42-75)
[2017-05-01 20:30] VITALS: BP 156/80
== END 2017-05-01 20:30 | disposition home or self-care (01) ==
LOC: ED 19:23
PROVIDERS: Nurse Practitioner Primary Care
DX: L02.32 Furuncle of buttock (principal); R60.0 Localized edema; F99 Mental disorder, not otherwise specified; Z88.6 Allergy status to analgesic agent; Z88.1 Allergy status to other antibiotic agents; Z88.0 Allergy status to penicillin; Z88.2 Allergy status to sulfonamides; Z88.8 Allergy status to other drugs, medicaments and biological substances; Z91.018 Allergy to other foods

== ENCOUNTER 2017-06-09 16:03 | Emergency (ER) | payer MEDICARE ==
[~2017-06-09] VITALS: Ht 165.1 cm; Wt 156.4 kg
[~2017-06-09 16:03] MED LIST changes: +DOXYCYCLINE MO100 M3 PO; +LASIX40 M1 PO; +LEVOTHYROXINE0.15 MG PO; +PROTONIX TR40 M1 PO; +SAPHRIS10 MG
[2017-06-09] MEDS ORDERED: SPIRONOLACTONE50 M1 PO (16:22)
[2017-06-09] MEDS ORDERED: BENADRYL 5050 MG/CAP PO (16:23)
[2017-06-09] MEDS ORDERED: LEXAPRO5 MG (16:23)
[2017-06-09 17:11] LABS: BASO # 0.1 (0.02-0.10); EOS # 0.3 (0.04-0.40); EOS % 2.1 % (1.0-5.0); HEMATOCRIT 43.3 % (37.0-47.0); HEMOGLOBIN 12.8 g/dL (12.5-16.0); MEAN CELL VOLUME 93 fl (78-100); MEAN CORPUSCULAR HEMOGLOBIN 28 pg (27-31); MEAN CORPUSCULAR HGB CONC 30 g/dL (33-37); MEAN PLATELET VOLUME 9.1 fl (7.4-10.4); MONO # 0.8 (0.20-0.80); RED BLOOD COUNT 4.65 M/mm3 (4.10-5.30); RED CELL DISTRIBUTION WIDTH 16.6 % (11.5-14.5); WHITE BLOOD COUNT 14.2 K/mm3 (4.8-10.8)
[2017-06-09 17:30] LABS: PLATELET COUNT 523 K/mm3 (130-400)
[2017-06-09 17:33] LABS: ALBUMIN 3.8 g/dL (3.5-5.0); BUN/CREATININE RATIO 4.1 (6.0-26.0); POTASSIUM 3.1 mmol/L (3.6-5.0); TOTAL BILIRUBIN 0.4 mg/dL (0.2-1.3); TOTAL PROTEIN 7.3 g/dL (6.3-8.2)
[2017-06-09 17:39] LABS: URINE APPEARANCE CLOUDY; URINE BILIRUBIN NEGATIVE (NEGATIVE); URINE BLOOD NEGATIVE (NEGATIVE); URINE COLOR YELLOW; URINE GLUCOSE NEGATIVE (NEGATIVE); URINE KETONE NEGATIVE (NEGATIVE); URINE NITRATE NEGATIVE (NEGATIVE); URINE PROTEIN(semi-quant) 2+ mg/dL (NEGATIVE); URINE UROBILINOGEN NORMAL (NORMAL)
[2017-06-09 17:40] LABS: URINE LEUKOCYTE ESTERASE 1+ (NEGATIVE)
[2017-06-09] MEDS ORDERED: PHENERGAN 25 TA25 MG PO (20:17)
[2017-06-09] MEDS ORDERED: POTASSIUM CHLO10 ME7 PO (20:20)
[2017-06-09 20:59] VITALS: BP 134/91
== END 2017-06-09 20:59 | disposition home or self-care (01) ==
LOC: ED 16:03
PROVIDERS: Physician Assistant
DX: R11.2 Nausea with vomiting, unspecified (principal); R19.7 Diarrhea, unspecified; E87.6 Hypokalemia; F32.9 Major depressive disorder, single episode, unspecified; F41.9 Anxiety disorder, unspecified; F43.10 Post-traumatic stress disorder, unspecified; F60.9 Personality disorder, unspecified; F25.9 Schizoaffective disorder, unspecified; Z87.891 Personal history of nicotine dependence; E66.01 Morbid (severe) obesity due to excess calories; Z68.43 Body mass index [BMI] 50.0-59.9, adult; R10.816 Epigastric abdominal tenderness; R10.814 Left lower quadrant abdominal tenderness
CPT/HCPCS: J2405; J3490; J7030; Q9967

== ENCOUNTER → 2017-07-15 | Outpatient (CLI) | payer MEDICARE, MEDICAID ==
[~2017-07-15] MED LIST changes: +BENADRYL 5050 MG/CAP PO; +LEXAPRO5 MG; +POTASSIUM CHLO10 ME7 PO; +SPIRONOLACTONE50 M1 PO; +TRAMADOL 50 MG TAB PO; +ZYPREXA10 M1 PO
== END ==
LOC: RAD 19:20
DX: S93.401A Sprain of unspecified ligament of right ankle, initial encounter (principal)

== ENCOUNTER 2017-07-17 23:03 | Emergency (ER) | payer MEDICARE, MEDICAID ==
[~2017-07-17 23:03] MED LIST changes: -TRAMADOL 50 MG TAB PO; -ZYPREXA10 M1 PO
[2017-07-17] MEDS ORDERED: ZYPREXA10 M1 PO (23:13)
[2017-07-17] MEDS ORDERED: TRAMADOL 50 MG TAB PO (23:22)
[2017-07-17] MEDS ORDERED: KLONOPIN 0.5MG0.5 MG PO (23:22)
[2017-07-17 23:44] LABS: BASO # 0.1 (0.02-0.10); EOS % 7.4 % (1.0-5.0); HEMATOCRIT 41.2 % (37.0-47.0); HEMOGLOBIN 12.4 g/dL (12.5-16.0); LYMPH# 3.4 (1.50-4.00); MEAN CELL VOLUME 88 fl (78-100); MEAN CORPUSCULAR HEMOGLOBIN 27 pg (27-31); MEAN CORPUSCULAR HGB CONC 30 g/dL (33-37); MEAN PLATELET VOLUME 9.1 fl (7.4-10.4); MONO # 0.7 (0.20-0.80); NEU # 5.1 (1.40-6.50); PLATELET COUNT 399 K/mm3 (130-400); RED BLOOD COUNT 4.68 M/mm3 (4.10-5.30); RED CELL DISTRIBUTION WIDTH 15.4 % (11.5-14.5)
[2017-07-17 23:50] LABS: EOS # 0.7 (0.04-0.40)
[2017-07-17 23:59] LABS: ALBUMIN 3.8 g/dL (3.5-5.0); ALT/SGPT 33 U/L (9-52); AST-SGOT 47 U/L (14-36); BUN/CREATININE RATIO 3.7 (6.0-26.0); CALCIUM 8.3 mg/dL (8.4-10.2); CARBON DIOXIDE 24 mmol/L (22-30); GLUCOSE 95 mg/dL (65-105); POTASSIUM 3.5 mmol/L (3.6-5.0); SODIUM 142 mmol/L (137-145); TOTAL BILIRUBIN 0.4 mg/dL (0.2-1.3); TOTAL PROTEIN 7.4 g/dL (6.3-8.2)
[2017-07-18 00:06] LABS: ACETAMINOPHEN < 4 ug/mL (10-30); ALCOHOL IN-HOUSE < 10 mg/dL
[2017-07-18 08:35] VITALS: BP 128/88
== END 2017-07-18 09:27 ==
LOC: ED 23:03
PROVIDERS: Nurse Practitioner Primary Care
DX: R45.851 Suicidal ideations (principal); R44.1 Visual hallucinations; R44.0 Auditory hallucinations; H92.02 Otalgia, left ear; F32.9 Major depressive disorder, single episode, unspecified; F20.9 Schizophrenia, unspecified; F17.200 Nicotine dependence, unspecified, uncomplicated; Z79.899 Other long term (current) drug therapy

== ENCOUNTER 2017-07-30 19:37 | Emergency (ER) | payer MEDICARE, MEDICAID ==
[~2017-07-30] VITALS: Ht 165.1 cm; Wt 151.4 kg
[~2017-07-30 19:37] MED LIST changes: +TRAMADOL 50 MG TAB PO; +ZYPREXA10 M1 PO
[2017-07-30 21:27] VITALS: BP 140/87
[2017-07-30] MEDS ORDERED: ZYPREXA15 M1 PO (22:04)
== END 2017-07-30 21:27 | disposition home or self-care (01) ==
LOC: ED 19:37
DX: S76.011A Strain of muscle, fascia and tendon of right hip, initial encounter (principal); S70.02XA Contusion of left hip, initial encounter; W01.0XXA Fall on same level from slipping, tripping and stumbling without subsequent striking against object, initial encounter; Y92.009 Unspecified place in unspecified non-institutional (private) residence as the place of occurrence of the external cause; Z79.899 Other long term (current) drug therapy

== ENCOUNTER 2017-08-05 01:48 | Emergency (ER) | payer MEDICARE, MEDICAID ==
[~2017-08-05] VITALS: Ht 167.6 cm; Wt 156.8 kg
[~2017-08-05 01:48] MED LIST changes: -LEXAPRO5 MG; +LEXAPRO5 MG PO; +ZYPREXA15 M1 PO
[2017-08-05] MEDS ORDERED: ALBUTEROL2.5 MG/3 M IH (03:06)
[2017-08-05] MEDS ORDERED: PROAIR HFA0.09 MG/AC IH (03:52)
[2017-08-05] MEDS ORDERED: AZITHROMYCIN 250MGPK PO (03:52)
[2017-08-05] MEDS ORDERED: TESSALON PERLE100 M1 PO (03:52)
[2017-08-05 04:01] VITALS: BP 156/96
== END 2017-08-05 04:01 | disposition home or self-care (01) ==
LOC: ED 01:48
DX: J45.901 Unspecified asthma with (acute) exacerbation (principal); J41.0 Simple chronic bronchitis; Z87.891 Personal history of nicotine dependence; R00.0 Tachycardia, unspecified
CPT/HCPCS: J2930

== ENCOUNTER 2017-08-13 23:49 | Emergency (ER) | payer MEDICARE, MEDICAID ==
[~2017-08-13] VITALS: Ht 167.6 cm; Wt 156.8 kg
[~2017-08-13 23:49] MED LIST changes: +AZITHROMYCIN 250MGPK PO; +PROAIR HFA0.09 MG/AC IH
[2017-08-14 01:33] VITALS: BP 143/94
== END 2017-08-14 01:33 | disposition home or self-care (01) ==
LOC: ED 23:49
DX: R51 Headache (principal); R11.0 Nausea; H53.8 Other visual disturbances; J45.909 Unspecified asthma, uncomplicated; Z86.69 Personal history of other diseases of the nervous system and sense organs
CPT/HCPCS: J1885; J2550

== ENCOUNTER 2017-08-16 19:14 | Emergency (ER) | payer MEDICARE, MEDICAID ==
[~2017-08-16] VITALS: Ht 167.6 cm; Wt 159.5 kg
[2017-08-16] MEDS ORDERED: IMITREX50 M1 PO (19:32)
[2017-08-16] MEDS ORDERED: ZOFRAN ODT4 MG PO (19:51)
[2017-08-16 21:11] VITALS: BP 144/95
== END 2017-08-16 21:11 | disposition home or self-care (01) ==
LOC: ED 19:14
DX: G43.909 Migraine, unspecified, not intractable, without status migrainosus (principal); Z79.899 Other long term (current) drug therapy; J45.909 Unspecified asthma, uncomplicated
CPT/HCPCS: J1200; J1885; J2550

== ENCOUNTER 2017-08-20 20:30 | Emergency (ER) | payer MEDICARE, MEDICAID ==
[~2017-08-20 20:30] MED LIST changes: +IMITREX50 M1 PO; +ZOFRAN ODT4 MG PO
[2017-08-20 22:32] VITALS: BP 121/95
== END 2017-08-20 22:50 | disposition home or self-care (01) ==
LOC: ED 20:30
DX: G43.909 Migraine, unspecified, not intractable, without status migrainosus (principal); J45.909 Unspecified asthma, uncomplicated; Z79.899 Other long term (current) drug therapy
CPT/HCPCS: J1885; J2550

== ENCOUNTER 2017-08-28 20:28 | Emergency (ER) | payer MEDICARE, MEDICAID ==
[2017-08-28 22:28] VITALS: BP 105/81
== END 2017-08-28 22:28 | disposition home or self-care (01) ==
LOC: ED 20:28
DX: G43.909 Migraine, unspecified, not intractable, without status migrainosus (principal); Z79.899 Other long term (current) drug therapy; Z87.891 Personal history of nicotine dependence; J45.909 Unspecified asthma, uncomplicated
CPT/HCPCS: J1885; J2765

== ENCOUNTER 2017-08-31 11:12 | Emergency (ER) | payer MEDICARE, MEDICAID ==
[~2017-08-31] VITALS: Ht 165.1 cm; Wt 162.7 kg
[~2017-08-31 11:12] MED LIST changes: +KLONOPIN 1MG1 MG PO
[2017-08-31] MEDS ORDERED: ZOFRAN ODT4 MG PO (12:33)
[2017-08-31 12:51] VITALS: BP 124/73
== END 2017-08-31 12:45 | disposition home or self-care (01) ==
LOC: ED 11:12
DX: G44.209 Tension-type headache, unspecified, not intractable (principal); I10 Essential (primary) hypertension; G43.909 Migraine, unspecified, not intractable, without status migrainosus; Z79.899 Other long term (current) drug therapy
CPT/HCPCS: J1200; J1885; J2405

== ENCOUNTER 2017-09-03 18:29 | Emergency (ER) | payer MEDICARE, MEDICAID ==
[2017-09-03] MEDS ORDERED: ZANAFLEX4 M1 PO (18:48)
[2017-09-03 19:41] LABS: HEMATOCRIT 39.5 % (37.0-47.0); HEMOGLOBIN 12.1 g/dL (12.5-16.0); MEAN CELL VOLUME 85 fl (78-100); MEAN CORPUSCULAR HEMOGLOBIN 26 pg (27-31); MEAN CORPUSCULAR HGB CONC 31 g/dL (33-37); MEAN PLATELET VOLUME 9.3 fl (7.4-10.4); PLATELET COUNT 348 K/mm3 (130-400); RED BLOOD COUNT 4.65 M/mm3 (4.10-5.30); RED CELL DISTRIBUTION WIDTH 15.9 % (11.5-14.5); WHITE BLOOD COUNT 11.8 K/mm3 (4.8-10.8)
[2017-09-03 19:48] LABS: URINE APPEARANCE CLOUDY; URINE BILIRUBIN NEGATIVE (NEGATIVE); URINE BLOOD NEGATIVE (NEGATIVE); URINE COLOR YELLOW; URINE GLUCOSE NEGATIVE (NEGATIVE); URINE KETONE NEGATIVE (NEGATIVE); URINE LEUKOCYTE ESTERASE NEGATIVE (NEGATIVE); URINE MUCUS PRESENT (NOT PRESENT); URINE NITRATE NEGATIVE (NEGATIVE); URINE PROTEIN(semi-quant) TRACE mg/dL (NEGATIVE); URINE UROBILINOGEN NORMAL (NORMAL)
[2017-09-03 19:50] LABS: ACETAMINOPHEN < 4 ug/mL (10-30); ALBUMIN 4.1 g/dL (3.5-5.0); ALT/SGPT 31 U/L (9-52); AST-SGOT 38 U/L (14-36); BUN/CREATININE RATIO 5.3 (6.0-26.0); CALCIUM 8.6 mg/dL (8.4-10.2); CARBON DIOXIDE 23 mmol/L (22-30); GLUCOSE 103 mg/dL (65-105); POTASSIUM 3.6 mmol/L (3.6-5.0); SODIUM 141 mmol/L (137-145); TOTAL BILIRUBIN 0.4 mg/dL (0.2-1.3); TOTAL PROTEIN 7.5 g/dL (6.3-8.2)
[2017-09-03 19:52] LABS: LYMPHOCYTE 31 % (20-51); MONOCYTE 9 % (3-10); NEUTROPHILS 52 % (42-75)
[2017-09-03 22:37] VITALS: BP 161/82
== END 2017-09-03 22:39 | disposition home or self-care (01) ==
LOC: ED 18:29
PROVIDERS: Family Medicine
DX: R45.851 Suicidal ideations (principal); F60.9 Personality disorder, unspecified; S60.812A Abrasion of left wrist, initial encounter; X83.8XXA Intentional self-harm by other specified means, initial encounter; R51 Headache; Z91.5 Personal history of self-harm; I10 Essential (primary) hypertension; F99 Mental disorder, not otherwise specified; J45.909 Unspecified asthma, uncomplicated; Z79.899 Other long term (current) drug therapy
CPT/HCPCS: J1885

== ENCOUNTER 2017-09-11 22:07 | Emergency (ER) | payer MEDICARE, MEDICAID ==
[~2017-09-11 22:07] MED LIST changes: +ZANAFLEX4 M1 PO
[2017-09-11 22:48] LABS: PH-URINE 6.5 (5.0 - 8.0); URINE APPEARANCE HAZY; URINE BILIRUBIN NEGATIVE (NEGATIVE); URINE BLOOD NEGATIVE (NEGATIVE); URINE COLOR YELLOW; URINE GLUCOSE NEGATIVE (NEGATIVE); URINE KETONE NEGATIVE (NEGATIVE); URINE LEUKOCYTE ESTERASE NEGATIVE (NEGATIVE); URINE NITRATE NEGATIVE (NEGATIVE); URINE PROTEIN(semi-quant) NEGATIVE (NEGATIVE); URINE UROBILINOGEN NORMAL (NORMAL)
[2017-09-11 23:18] VITALS: BP 138/84
== END 2017-09-11 23:18 | disposition home or self-care (01) ==
LOC: ED 22:07
PROVIDERS: Physician Assistant
DX: R51 Headache (principal); K58.0 Irritable bowel syndrome with diarrhea; I10 Essential (primary) hypertension; Z87.891 Personal history of nicotine dependence; Z79.899 Other long term (current) drug therapy
CPT/HCPCS: J1885; J2550

== ENCOUNTER 2017-10-22 18:15 | Emergency (ER) | payer MEDICARE, MEDICAID ==
[~2017-10-22] VITALS: Ht 167.6 cm; Wt 177.7 kg
[2017-10-22] MEDS ORDERED: LEVOXYL0.2 MG PO (18:38)
[2017-10-22] MEDS ORDERED: ZYPREXA ZYDIS15 MG PO (18:39)
[2017-10-22] MEDS ORDERED: ZYPREXA ZYDIS20 MG PO (18:39)
[2017-10-22] MEDS ORDERED: FOLIC ACID1 MG PO (18:40)
[2017-10-22] MEDS ORDERED: PRISTIQ50 M1 PO (18:40)
[2017-10-22 19:33] LABS: HEMATOCRIT 35.7 % (37.0-47.0); HEMOGLOBIN 11.1 g/dL (12.5-16.0); MEAN CELL VOLUME 85 fl (78-100); MEAN CORPUSCULAR HEMOGLOBIN 26 pg (27-31); MEAN CORPUSCULAR HGB CONC 31 g/dL (33-37); MEAN PLATELET VOLUME 8.8 fl (7.4-10.4); PLATELET COUNT 374 K/mm3 (130-400); RED BLOOD COUNT 4.22 M/mm3 (4.10-5.30); RED CELL DISTRIBUTION WIDTH 15.2 % (11.5-14.5); WHITE BLOOD COUNT 15.5 K/mm3 (4.8-10.8)
[2017-10-22 19:47] LABS: LYMPHOCYTE 22 % (20-51); MONOCYTE 4 % (3-10); NEUTROPHILS 61 % (42-75)
[2017-10-22] MEDS ORDERED: PREDNISONE20 M1 PO (19:56)
[2017-10-22 20:07] VITALS: BP 111/74
== END 2017-10-22 20:07 | disposition home or self-care (01) ==
LOC: ED 18:15
PROVIDERS: Family Medicine
DX: J45.909 Unspecified asthma, uncomplicated (principal); S91.311A Laceration without foreign body, right foot, initial encounter; W22.8XXA Striking against or struck by other objects, initial encounter; Z79.899 Other long term (current) drug therapy; G47.30 Sleep apnea, unspecified

== ENCOUNTER 2017-11-12 13:42 | Emergency (ER) | payer MEDICARE, MEDICAID ==
[~2017-11-12 13:42] MED LIST changes: +FOLIC ACID1 MG PO; +LEVOXYL0.2 MG PO; +PRISTIQ50 M1 PO; +ZYPREXA ZYDIS15 MG PO; +ZYPREXA ZYDIS20 MG PO
[2017-11-12] MEDS ORDERED: PAXIL20 M1 PO (13:57)
[2017-11-12] MEDS ORDERED: DEPLIN PO (13:59)
[2017-11-12] MEDS ORDERED: HYDROXYZINE PAM25 M1 PO (13:59)
[2017-11-12] MEDS ORDERED: GLUCOPHAGE PO (14:00)
[2017-11-12] MEDS ORDERED: GLUCOPHAGE1000 MG PO (14:00)
[2017-11-12] MEDS ORDERED: LEVOTHYROXINE175 MCG PO (14:02)
[2017-11-12 15:34] VITALS: BP 139/88
== END 2017-11-12 15:35 | disposition home or self-care (01) ==
LOC: ED 13:42
DX: G44.209 Tension-type headache, unspecified, not intractable (principal); E11.9 Type 2 diabetes mellitus without complications; G47.30 Sleep apnea, unspecified; E03.9 Hypothyroidism, unspecified; F99 Mental disorder, not otherwise specified; Z79.899 Other long term (current) drug therapy; Z79.84 Long term (current) use of oral hypoglycemic drugs; R00.0 Tachycardia, unspecified
CPT/HCPCS: J1885; J2360

== ENCOUNTER 2017-11-29 17:16 | Emergency (ER) | payer MEDICARE, MEDICAID ==
[~2017-11-29] VITALS: Ht 167.6 cm; Wt 182.2 kg
[~2017-11-29 17:16] MED LIST changes: +DEPLIN PO; +GLUCOPHAGE PO; +GLUCOPHAGE1000 MG PO; +HYDROXYZINE PAM25 M1 PO; +LEVOTHYROXINE175 MCG PO; +PAXIL20 M1 PO
[2017-11-29 18:15] LABS: BASO # 0.1 (0.02-0.10); EOS # 0.5 (0.04-0.40); EOS % 3.7 % (1.0-5.0); HEMATOCRIT 37.5 % (37.0-47.0); HEMOGLOBIN 10.9 g/dL (12.5-16.0); LYMPH# 3.6 (1.50-4.00); MEAN CELL VOLUME 84 fl (78-100); MEAN PLATELET VOLUME 9.2 fl (7.4-10.4); MONO # 0.8 (0.20-0.80); NEU # 7.3 (1.40-6.50); PLATELET COUNT 331 K/mm3 (130-400); RED BLOOD COUNT 4.46 M/mm3 (4.10-5.30); RED CELL DISTRIBUTION WIDTH 14.5 % (11.5-14.5); WHITE BLOOD COUNT 12.3 K/mm3 (4.8-10.8)
[2017-11-29 18:21] LABS: ALBUMIN 3.9 g/dL (3.5-5.0); CALCIUM 8.7 mg/dL (8.4-10.2); POTASSIUM 3.6 mmol/L (3.6-5.0); TOTAL BILIRUBIN 0.4 mg/dL (0.2-1.3)
[2017-11-29 18:32] LABS: URINE APPEARANCE CLEAR; URINE BILIRUBIN NEGATIVE (NEGATIVE); URINE BLOOD NEGATIVE (NEGATIVE); URINE COLOR YELLOW; URINE GLUCOSE NEGATIVE (NEGATIVE); URINE KETONE NEGATIVE (NEGATIVE); URINE LEUKOCYTE ESTERASE NEGATIVE (NEGATIVE); URINE NITRATE NEGATIVE (NEGATIVE); URINE PROTEIN(semi-quant) NEGATIVE (NEGATIVE); URINE UROBILINOGEN NORMAL (NORMAL); URINE WBC 0-1 /hpf (0-3)
[2017-11-29 18:35] LABS: MEAN CORPUSCULAR HEMOGLOBIN 24 pg (27-31); MEAN CORPUSCULAR HGB CONC 29 g/dL (33-37)
[2017-11-29 19:06] VITALS: BP 119/84
== END 2017-11-29 19:08 | disposition home or self-care (01) ==
LOC: ED 17:16
PROVIDERS: Nurse Practitioner
DX: R19.7 Diarrhea, unspecified (principal); R25.2 Cramp and spasm; R53.83 Other fatigue; K21.9 Gastro-esophageal reflux disease without esophagitis; F25.9 Schizoaffective disorder, unspecified; Z90.49 Acquired absence of other specified parts of digestive tract; Z87.891 Personal history of nicotine dependence; Z79.899 Other long term (current) drug therapy; Z79.84 Long term (current) use of oral hypoglycemic drugs
CPT/HCPCS: J7030

== ENCOUNTER 2017-12-04 15:07 | Emergency (ER) | payer MEDICARE, MEDICAID ==
[~2017-12-04] VITALS: Ht 167.6 cm; Wt 181.8 kg
[2017-12-04 15:55] LABS: BASO # 0.1 (0.02-0.10); EOS # 0.5 (0.04-0.40); EOS % 4.9 % (1.0-5.0); HEMATOCRIT 37.4 % (37.0-47.0); HEMOGLOBIN 11.1 g/dL (12.5-16.0); LYMPH# 2.8 (1.50-4.00); MEAN CELL VOLUME 82 fl (78-100); MEAN CORPUSCULAR HGB CONC 30 g/dL (33-37); MEAN PLATELET VOLUME 9.1 fl (7.4-10.4); MONO # 0.6 (0.20-0.80); NEU # 6.9 (1.40-6.50); PLATELET COUNT 339 K/mm3 (130-400); RED BLOOD COUNT 4.55 M/mm3 (4.10-5.30); RED CELL DISTRIBUTION WIDTH 14.8 % (11.5-14.5); WHITE BLOOD COUNT 10.9 K/mm3 (4.8-10.8)
[2017-12-04 16:02] LABS: MEAN CORPUSCULAR HEMOGLOBIN 24 pg (27-31)
[2017-12-04 16:12] LABS: ALT/SGPT 27 U/L (9-52); AST-SGOT 39 U/L (14-36); CALCIUM 8.7 mg/dL (8.4-10.2); CARBON DIOXIDE 27 mmol/L (22-30); GLUCOSE 139 mg/dL (65-105); POTASSIUM 3.8 mmol/L (3.6-5.0); SODIUM 141 mmol/L (137-145); TOTAL BILIRUBIN 0.4 mg/dL (0.2-1.3)
[2017-12-04 16:14] LABS: ACETAMINOPHEN < 4 ug/mL (10-30); ALCOHOL IN-HOUSE < 10 mg/dL
[2017-12-04 23:45] VITALS: BP 133/83
== END 2017-12-04 23:45 ==
LOC: ED 15:07
PROVIDERS: Nurse Practitioner Primary Care
DX: F32.9 Major depressive disorder, single episode, unspecified (principal); R45.851 Suicidal ideations; F20.9 Schizophrenia, unspecified; F60.9 Personality disorder, unspecified; F41.9 Anxiety disorder, unspecified; F43.10 Post-traumatic stress disorder, unspecified; E89.0 Postprocedural hypothyroidism; R06.02 Shortness of breath; Z79.899 Other long term (current) drug therapy

== ENCOUNTER 2017-12-29 11:37 | Emergency (ER) | payer MEDICARE, MEDICAID ==
[~2017-12-29] VITALS: Ht 167.6 cm; Wt 181.8 kg
[2017-12-29 12:48] LABS: BASO # 0.1 (0.02-0.10); EOS % 7.3 % (1.0-5.0); HEMATOCRIT 37.6 % (37.0-47.0); HEMOGLOBIN 10.9 g/dL (12.5-16.0); LYMPH# 2.3 (1.50-4.00); MEAN CELL VOLUME 82 fl (78-100); MEAN PLATELET VOLUME 9.3 fl (7.4-10.4); MONO # 0.7 (0.20-0.80); NEU # 5.7 (1.40-6.50); PLATELET COUNT 362 K/mm3 (130-400); RED BLOOD COUNT 4.61 M/mm3 (4.10-5.30); RED CELL DISTRIBUTION WIDTH 15.4 % (11.5-14.5); WHITE BLOOD COUNT 9.5 K/mm3 (4.8-10.8)
[2017-12-29 12:52] LABS: EOS # 0.7 (0.04-0.40); MEAN CORPUSCULAR HEMOGLOBIN 24 pg (27-31); MEAN CORPUSCULAR HGB CONC 29 g/dL (33-37)
[2017-12-29] MEDS ORDERED: IPRATROPIUM BROM3 M1 IH (13:14)
[2017-12-29] MEDS ORDERED: DELTASONE20 M1 PO (13:15)
[2017-12-29] MEDS ORDERED: TESSALON PERLE100 M1 PO (13:15)
[2017-12-29 13:30] VITALS: BP 100/79
[2017-12-29] MEDS ORDERED: CARVEDILOL12.5 MG PO (13:37)
== END 2017-12-29 13:31 | disposition home or self-care (01) ==
LOC: ED 11:37
PROVIDERS: Nurse Practitioner Family
DX: J45.901 Unspecified asthma with (acute) exacerbation (principal); J20.9 Acute bronchitis, unspecified; J00 Acute nasopharyngitis [common cold]; F41.9 Anxiety disorder, unspecified; F31.9 Bipolar disorder, unspecified; F43.10 Post-traumatic stress disorder, unspecified; E89.0 Postprocedural hypothyroidism

== ENCOUNTER 2018-02-03 19:08 | Emergency (ER) | payer MEDICARE, MEDICAID ==
[~2018-02-03 19:08] MED LIST changes: +CARVEDILOL12.5 MG PO; +DELTASONE20 M1 PO
[2018-02-03] MEDS ORDERED: HALDOL 5MG T5 MG/TAB PO (19:23)
[2018-02-03] MEDS ORDERED: MECLIZINE PO (21:34)
[2018-02-03 21:48] VITALS: BP 108/68
== END 2018-02-03 21:48 | disposition home or self-care (01) ==
LOC: ED 19:08
DX: R51 Headache (principal); S00.03XA Contusion of scalp, initial encounter; R42 Dizziness and giddiness; W22.8XXA Striking against or struck by other objects, initial encounter; E11.9 Type 2 diabetes mellitus without complications; J45.909 Unspecified asthma, uncomplicated; K21.9 Gastro-esophageal reflux disease without esophagitis; F99 Mental disorder, not otherwise specified; G47.30 Sleep apnea, unspecified; E89.0 Postprocedural hypothyroidism; Z79.899 Other long term (current) drug therapy; Z79.84 Long term (current) use of oral hypoglycemic drugs
CPT/HCPCS: J1885; J2550

== ENCOUNTER → 2018-02-09 | Outpatient (CLI) | payer MEDICARE, MEDICAID ==
[~2018-02-09] VITALS: Ht 167.6 cm; Wt 183.6 kg
[~2018-02-09] MED LIST changes: +HALDOL 5MG T5 MG/TAB PO; +MECLIZINE PO; +SYNTHROID0.2 MG PO
[2018-02-09 14:00] VITALS: BP 116/79
[2018-02-09 15:08] VITALS: BP 136/81
== END ==
LOC: AMSURD 13:41
DX: E86.0 Dehydration (principal)
CPT/HCPCS: J7030

== ENCOUNTER 2018-02-10 23:22 | Emergency (ER) | payer MEDICARE, MEDICAID ==
[~2018-02-10] VITALS: Ht 167.6 cm; Wt 184.5 kg
[~2018-02-10 23:22] MED LIST changes: -SYNTHROID0.2 MG PO
[2018-02-10] MEDS ORDERED: SYNTHROID0.2 MG PO (23:38)
[2018-02-11 00:23] LABS: BASO # 0.1 (0.02-0.10); EOS # 0.6 (0.04-0.40); EOS % 5.3 % (1.0-5.0); HEMATOCRIT 37.1 % (37.0-47.0); HEMOGLOBIN 10.8 g/dL (12.5-16.0); LYMPH# 3.6 (1.50-4.00); MEAN CELL VOLUME 79 fl (78-100); MEAN PLATELET VOLUME 9.4 fl (7.4-10.4); MONO # 0.8 (0.20-0.80); NEU # 6.1 (1.40-6.50); PLATELET COUNT 329 K/mm3 (130-400); RED BLOOD COUNT 4.67 M/mm3 (4.10-5.30); RED CELL DISTRIBUTION WIDTH 16.2 % (11.5-14.5); WHITE BLOOD COUNT 11.2 K/mm3 (4.8-10.8)
[2018-02-11 00:29] LABS: ALBUMIN 3.9 g/dL (3.5-5.0); ALT/SGPT 25 U/L (9-52); AST-SGOT 26 U/L (14-36); CALCIUM 8.6 mg/dL (8.4-10.2); CARBON DIOXIDE 26 mmol/L (22-30); GLUCOSE 120 mg/dL (65-105); MEAN CORPUSCULAR HEMOGLOBIN 23 pg (27-31); POTASSIUM 3.6 mmol/L (3.6-5.0); SODIUM 139 mmol/L (137-145); TOTAL BILIRUBIN 0.3 mg/dL (0.2-1.3); TOTAL PROTEIN 6.6 g/dL (6.3-8.2)
[2018-02-11 00:30] LABS: ACETAMINOPHEN < 4 ug/mL (10-30); MEAN CORPUSCULAR HGB CONC 29 g/dL (33-37)
[2018-02-11 00:39] LABS: URINE APPEARANCE HAZY; URINE COLOR YELLOW
[2018-02-11 00:40] LABS: URINE BILIRUBIN NEGATIVE (NEGATIVE); URINE BLOOD NEGATIVE (NEGATIVE); URINE GLUCOSE NEGATIVE (NEGATIVE); URINE KETONE NEGATIVE (NEGATIVE); URINE LEUKOCYTE ESTERASE TRACE (NEGATIVE); URINE NITRATE NEGATIVE (NEGATIVE); URINE PROTEIN(semi-quant) TRACE mg/dL (NEGATIVE); URINE UROBILINOGEN NORMAL (NORMAL)
[2018-02-11 15:44] VITALS: BP 118/72
== END 2018-02-11 16:04 ==
LOC: ED 23:22
PROVIDERS: Family Medicine
DX: R45.851 Suicidal ideations (principal); F32.9 Major depressive disorder, single episode, unspecified; R44.0 Auditory hallucinations; R44.1 Visual hallucinations; J45.909 Unspecified asthma, uncomplicated; I10 Essential (primary) hypertension; E11.8 Type 2 diabetes mellitus with unspecified complications; G47.30 Sleep apnea, unspecified; K21.9 Gastro-esophageal reflux disease without esophagitis; E89.0 Postprocedural hypothyroidism; Z79.84 Long term (current) use of oral hypoglycemic drugs; Z90.49 Acquired absence of other specified parts of digestive tract; Z90.710 Acquired absence of both cervix and uterus

== ENCOUNTER 2018-03-01 00:16 | Emergency (ER) | payer MEDICARE, MEDICAID ==
[~2018-03-01 00:16] MED LIST changes: +SYNTHROID0.2 MG PO
[2018-03-01] MEDS ORDERED: LAMICTAL 25MG T25 MG PO (00:27)
[2018-03-01] MEDS ORDERED: PRISTIQ50 M1 PO (00:28)
[2018-03-01] MEDS ORDERED: HALOPERIDOL10 M1 PO (00:28)
[2018-03-01 01:24] VITALS: BP 119/84
== END 2018-03-01 01:24 | disposition home or self-care (01) ==
LOC: ED 00:16
DX: M25.562 Pain in left knee (principal); M25.552 Pain in left hip; J45.909 Unspecified asthma, uncomplicated; F32.9 Major depressive disorder, single episode, unspecified; E89.0 Postprocedural hypothyroidism; Z79.84 Long term (current) use of oral hypoglycemic drugs; Z88.9 Allergy status to unspecified drugs, medicaments and biological substances; Z90.710 Acquired absence of both cervix and uterus; Z90.49 Acquired absence of other specified parts of digestive tract; W06.XXXA Fall from bed, initial encounter; Y92.003 Bedroom of unspecified non-institutional (private) residence as the place of occurrence of the external cause
CPT/HCPCS: J1885

== ENCOUNTER 2018-03-20 09:52 | Emergency (ER) | payer MEDICARE, MEDICAID ==
[~2018-03-20 09:52] MED LIST changes: +HALOPERIDOL10 M1 PO; +LAMICTAL 25MG T25 MG PO; +PRISTIQ100 MG PO
[2018-03-20 10:46] LABS: BASO # 0.1 (0.02-0.10); EOS # 0.6 (0.04-0.40); EOS % 7.6 % (1.0-5.0); HEMOGLOBIN 11.3 g/dL (12.5-16.0); LYMPH# 2.8 (1.50-4.00); MEAN CELL VOLUME 78 fl (78-100); MEAN CORPUSCULAR HEMOGLOBIN 22 pg (27-31); MEAN CORPUSCULAR HGB CONC 28 g/dL (33-37); MEAN PLATELET VOLUME 8.9 fl (7.4-10.4); MONO # 0.5 (0.20-0.80); NEU # 3.7 (1.40-6.50); PLATELET COUNT 345 K/mm3 (130-400); RED BLOOD COUNT 5.12 M/mm3 (4.10-5.30); RED CELL DISTRIBUTION WIDTH 16.6 % (11.5-14.5); WHITE BLOOD COUNT 7.6 K/mm3 (4.8-10.8)
[2018-03-20 11:16] LABS: ALBUMIN 3.9 g/dL (3.5-5.0); CALCIUM 8.4 mg/dL (8.4-10.2); POTASSIUM 3.7 mmol/L (3.6-5.0); TOTAL BILIRUBIN 0.3 mg/dL (0.2-1.3)
[2018-03-20] MEDS ORDERED: TESSALON PERLE100 M1 PO (12:41)
[2018-03-20 12:52] VITALS: BP 141/84
== END 2018-03-20 12:55 | disposition home or self-care (01) ==
LOC: ED 09:52
PROVIDERS: Physician Assistant
DX: R00.2 Palpitations (principal); R05 Cough; K21.9 Gastro-esophageal reflux disease without esophagitis; E11.9 Type 2 diabetes mellitus without complications; I10 Essential (primary) hypertension; K27.9 Peptic ulcer, site unspecified, unspecified as acute or chronic, without hemorrhage or perforation; E89.0 Postprocedural hypothyroidism; Z90.49 Acquired absence of other specified parts of digestive tract; Z90.710 Acquired absence of both cervix and uterus; Z90.89 Acquired absence of other organs
CPT/HCPCS: J1885

== ENCOUNTER → 2018-03-26 | Outpatient (CLI) | payer MEDICARE, MEDICAID ==
[2018-03-20 12:52] VITALS: BP 141/84
== END ==
LOC: MAMMO 07:40
DX: N64.59 Other signs and symptoms in breast (principal); Z41.1 Encounter for cosmetic surgery; Z98.890 Other specified postprocedural states

== ENCOUNTER 2018-05-22 23:12 | Emergency (ER) | payer MEDICARE, MEDICAID ==
[~2018-05-22] VITALS: Ht 167.6 cm; Wt 180.9 kg
[2018-05-22] MEDS ORDERED: DESVENLAFAXINE100 M3 PO (23:26)
[2018-05-22] MEDS ORDERED: VOLTAREN 75 DR75 MG PO (23:26)
[2018-05-23] MEDS ORDERED: IPRATROPIUM BROM3 M1 IH (00:26)
== END 2018-05-23 00:29 | disposition home or self-care (01) ==
LOC: ED 23:12
DX: J45.901 Unspecified asthma with (acute) exacerbation (principal); E11.9 Type 2 diabetes mellitus without complications; K21.9 Gastro-esophageal reflux disease without esophagitis; J45.909 Unspecified asthma, uncomplicated; G47.30 Sleep apnea, unspecified; E89.0 Postprocedural hypothyroidism; F32.9 Major depressive disorder, single episode, unspecified; Z90.712 Acquired absence of cervix with remaining uterus; Z98.86 Personal history of breast implant removal; Z90.49 Acquired absence of other specified parts of digestive tract

== ENCOUNTER 2018-08-03 15:00 | Outpatient (RCR) | payer MEDICARE, MEDICAID ==
[2018-05-22 23:20] VITALS: BP 125/77
[~2018-08-03 15:00] MED LIST changes: +DESVENLAFAXINE100 M3 PO; +VOLTAREN 75 DR75 MG PO
== END 2018-08-03 15:30 | disposition still patient (30) ==
LOC: PT 15:00
DX: M70.62 Trochanteric bursitis, left hip (principal)

== ENCOUNTER 2018-08-03 22:15 | Emergency (ER) | payer MEDICARE, MEDICAID ==
[~2018-08-03] VITALS: Ht 167.6 cm; Wt 183.6 kg
[2018-08-03 23:27] LABS: EOS # 0.6 (0.04-0.40); EOS % 5.3 % (1.0-5.0); HEMATOCRIT 38.8 % (37.0-47.0); HEMOGLOBIN 10.9 g/dL (12.5-16.0); LYMPH# 2.8 (1.50-4.00); MEAN CELL VOLUME 80 fl (78-100); MEAN PLATELET VOLUME 9.2 fl (7.4-10.4); MONO # 0.6 (0.20-0.80); NEU # 6.3 (1.40-6.50); PLATELET COUNT 300 K/mm3 (130-400); RED BLOOD COUNT 4.85 M/mm3 (4.10-5.30); RED CELL DISTRIBUTION WIDTH 16.3 % (11.5-14.5); WHITE BLOOD COUNT 10.3 K/mm3 (4.8-10.8)
[2018-08-03 23:28] LABS: MEAN CORPUSCULAR HEMOGLOBIN 23 pg (27-31); MEAN CORPUSCULAR HGB CONC 28 g/dL (33-37)
[2018-08-03 23:59] LABS: ALBUMIN 3.9 g/dL (3.5-5.0); POTASSIUM 3.9 mmol/L (3.5-5.1)
[2018-08-04 00:01] LABS: CALCIUM 8.8 mg/dL (8.3-10.5)
[2018-08-04 00:02] LABS: TOTAL PROTEIN 6.6 g/dL (6.4-8.3)
[2018-08-04 00:04] LABS: TOTAL BILIRUBIN 0.3 mg/dL (0.2-1.2)
[2018-08-04 01:02] VITALS: BP 148/89
== END 2018-08-04 01:02 | disposition home or self-care (01) ==
LOC: ED 22:15
PROVIDERS: Family Medicine
DX: J45.909 Unspecified asthma, uncomplicated (principal); E11.65 Type 2 diabetes mellitus with hyperglycemia; D64.9 Anemia, unspecified; I10 Essential (primary) hypertension; K21.9 Gastro-esophageal reflux disease without esophagitis; E89.0 Postprocedural hypothyroidism; G47.30 Sleep apnea, unspecified; Z90.49 Acquired absence of other specified parts of digestive tract; Z90.710 Acquired absence of both cervix and uterus; Z87.891 Personal history of nicotine dependence; Z79.84 Long term (current) use of oral hypoglycemic drugs

== ENCOUNTER 2018-08-22 22:54 | Emergency (ER) | payer MEDICARE ==
[~2018-08-22] VITALS: Ht 167.6 cm; Wt 184.1 kg
[2018-08-22 23:33] LABS: BASO # 0.1 (0.02-0.10); EOS # 0.5 (0.04-0.40); EOS % 5.8 % (1.0-5.0); HEMATOCRIT 39.8 % (37.0-47.0); HEMOGLOBIN 11.6 g/dL (12.5-16.0); MEAN CELL VOLUME 78 fl (78-100); MEAN PLATELET VOLUME 9.7 fl (7.4-10.4); MONO # 0.6 (0.20-0.80); NEU # 4.7 (1.40-6.50); PLATELET COUNT 338 K/mm3 (130-400); RED CELL DISTRIBUTION WIDTH 16.3 % (11.5-14.5); WHITE BLOOD COUNT 8.9 K/mm3 (4.8-10.8)
[2018-08-22 23:38] LABS: MEAN CORPUSCULAR HEMOGLOBIN 23 pg (27-31); MEAN CORPUSCULAR HGB CONC 29 g/dL (33-37)
[2018-08-22 23:40] LABS: ALBUMIN 3.8 g/dL (3.5-5.0); POTASSIUM 3.9 mmol/L (3.5-5.1)
[2018-08-22 23:43] LABS: TOTAL PROTEIN 6.9 g/dL (6.4-8.3)
[2018-08-22 23:45] LABS: TOTAL BILIRUBIN 0.3 mg/dL (0.2-1.2)
[2018-08-22 23:57] LABS: URINE APPEARANCE CLOUDY; URINE BILIRUBIN NEGATIVE (NEGATIVE); URINE BLOOD NEGATIVE (NEGATIVE); URINE COLOR YELLOW; URINE KETONE NEGATIVE (NEGATIVE); URINE LEUKOCYTE ESTERASE 1+ (NEGATIVE); URINE NITRATE NEGATIVE (NEGATIVE); URINE PROTEIN(semi-quant) TRACE mg/dL (NEGATIVE); URINE UROBILINOGEN NORMAL (NORMAL)
[2018-08-22 23:58] LABS: URINE MUCUS PRESENT (NOT PRESENT)
[2018-08-23 00:35] VITALS: BP 178/87
== END 2018-08-23 00:35 | disposition home or self-care (01) ==
LOC: ED 22:54
PROVIDERS: Physician Assistant
DX: R11.2 Nausea with vomiting, unspecified (principal); R10.9 Unspecified abdominal pain; F41.9 Anxiety disorder, unspecified; F32.9 Major depressive disorder, single episode, unspecified; J45.909 Unspecified asthma, uncomplicated; K21.9 Gastro-esophageal reflux disease without esophagitis; Z90.49 Acquired absence of other specified parts of digestive tract; Z90.710 Acquired absence of both cervix and uterus; Z79.84 Long term (current) use of oral hypoglycemic drugs

== ENCOUNTER 2018-09-02 21:31 | Emergency (ER) | payer MEDICARE ==
[~2018-09-02] VITALS: Ht 167.6 cm; Wt 183.6 kg
[2018-09-02] MEDS ORDERED: GLUCOPHAGE1000 MG PO (21:59)
[2018-09-02] MEDS ORDERED: ZALEPLON10 MG PO (22:00)
[2018-09-03 01:42] VITALS: BP 132/90
== END 2018-09-03 01:42 | disposition home or self-care (01) ==
LOC: ED 21:31
DX: E11.65 Type 2 diabetes mellitus with hyperglycemia (principal); J45.909 Unspecified asthma, uncomplicated; F99 Mental disorder, not otherwise specified; Z79.84 Long term (current) use of oral hypoglycemic drugs
CPT/HCPCS: J1815

== ENCOUNTER 2018-09-16 09:59 | Emergency (ER) | payer MEDICARE ==
[~2018-09-16 09:59] MED LIST changes: +ZALEPLON10 MG PO
[2018-09-16] MEDS ORDERED: CEPHALEXIN500 M1 PO ×2 (10:08→10:48)
[2018-09-16] MEDS ORDERED: GLUCOTROL 5M5 MG/TAB PO (10:08)
[2018-09-16] MEDS ORDERED: MUPIROCIN2% TP (10:08)
[2018-09-16 10:53] VITALS: BP 130/98
[2018-09-17] MEDS ORDERED: DICLOFENAC SOD50 MG PO (05:51)
[2018-09-17] MEDS ORDERED: WALKER (05:52)
== END 2018-09-16 10:53 | disposition home or self-care (01) ==
LOC: ED 09:59
DX: L03.031 Cellulitis of right toe (principal); I10 Essential (primary) hypertension; K21.9 Gastro-esophageal reflux disease without esophagitis; E11.9 Type 2 diabetes mellitus without complications; E89.0 Postprocedural hypothyroidism; Z90.710 Acquired absence of both cervix and uterus; Z90.89 Acquired absence of other organs; Z90.49 Acquired absence of other specified parts of digestive tract; Z79.84 Long term (current) use of oral hypoglycemic drugs

== ENCOUNTER 2018-09-17 02:10 | Emergency (ER) | payer MEDICARE ==
[~2018-09-17 02:10] MED LIST changes: +CEPHALEXIN500 M1 PO; +GLUCOTROL 5M5 MG/TAB PO; +MUPIROCIN2% TP
[2018-09-17] MEDS ORDERED: DICLOFENAC SOD50 MG PO (05:51)
[2018-09-17] MEDS ORDERED: WALKER (05:52)
[2018-09-17 06:00] VITALS: BP 121/98
== END 2018-09-17 06:00 | disposition home or self-care (01) ==
LOC: ED 02:10
DX: M84.375A Stress fracture, left foot, initial encounter for fracture (principal); X58.XXXA Exposure to other specified factors, initial encounter; Y92.009 Unspecified place in unspecified non-institutional (private) residence as the place of occurrence of the external cause

== ENCOUNTER 2018-09-28 08:06 | Emergency (ER) | payer MEDICARE ==
[~2018-09-28] VITALS: Ht 167.6 cm; Wt 177.3 kg
[~2018-09-28 08:06] MED LIST changes: +DICLOFENAC SOD50 MG PO; +WALKER
[2018-09-28 08:50] LABS: BASO # 0.1 (0.02-0.10); EOS # 0.6 (0.04-0.40); EOS % 6.9 % (1.0-5.0); HEMOGLOBIN 11.3 g/dL (12.5-16.0); LYMPH# 2.9 (1.50-4.00); MEAN CELL VOLUME 77 fl (78-100); MEAN CORPUSCULAR HEMOGLOBIN 23 pg (27-31); MEAN CORPUSCULAR HGB CONC 30 g/dL (33-37); MEAN PLATELET VOLUME 9.9 fl (7.4-10.4); MONO # 0.6 (0.20-0.80); NEU # 4.1 (1.40-6.50); PLATELET COUNT 311 K/mm3 (130-400); RED BLOOD COUNT 4.91 M/mm3 (4.10-5.30); RED CELL DISTRIBUTION WIDTH 16.5 % (11.5-14.5); WHITE BLOOD COUNT 8.2 K/mm3 (4.8-10.8)
[2018-09-28 08:58] LABS: ALBUMIN 3.8 g/dL (3.5-5.0); POTASSIUM 4.6 mmol/L (3.5-5.1)
[2018-09-28 08:59] LABS: CALCIUM 8.8 mg/dL (8.3-10.5)
[2018-09-28 09:00] LABS: TOTAL PROTEIN 7.1 g/dL (6.4-8.3)
[2018-09-28 09:02] LABS: TOTAL BILIRUBIN 0.4 mg/dL (0.2-1.2)
[2018-09-28 09:21] LABS: URINE APPEARANCE CLEAR; URINE BILIRUBIN NEGATIVE (NEGATIVE); URINE BLOOD NEGATIVE (NEGATIVE); URINE COLOR YELLOW; URINE KETONE NEGATIVE (NEGATIVE); URINE LEUKOCYTE ESTERASE NEGATIVE (NEGATIVE); URINE NITRATE NEGATIVE (NEGATIVE); URINE PROTEIN(semi-quant) NEGATIVE (NEGATIVE); URINE UROBILINOGEN NORMAL (NORMAL)
[2018-09-28] MEDS ORDERED: GLUCOTROL10 M2 PO (11:41)
[2018-09-28] MEDS ORDERED: IPRATROPIUM BROM3 M1 IH (11:47)
[2018-09-28] MEDS ORDERED: ULTRAM50 M1 PO (11:47)
[2018-09-28] MEDS ORDERED: BENZTROPINE ME0.5 M1 PO (11:48)
[2018-09-28] MEDS ORDERED: OS-CAL 500+D31 EACH PO (11:48)
[2018-09-28] MEDS ORDERED: VOLTAREN 75 DR75 MG PO (11:51)
[2018-09-28] MEDS ORDERED: PHENERGAN 25 TA25 MG PO (11:53)
[2018-09-28] MEDS ORDERED: MECLIZINE PO (11:53)
[2018-09-28] MEDS ORDERED: HYDROXYZINE HCL25 M1 PO (11:53)
[2018-09-28 13:18] LABS: POTASSIUM 4.3 mmol/L (3.5-5.1)
[2018-09-28 13:19] LABS: CALCIUM 8.8 mg/dL (8.3-10.5)
[2018-09-28 14:05] VITALS: BP 124/88
== END 2018-09-28 14:05 | disposition home or self-care (01) ==
LOC: ED 08:06
PROVIDERS: Nurse Practitioner Primary Care
DX: E11.65 Type 2 diabetes mellitus with hyperglycemia (principal); I10 Essential (primary) hypertension; E66.01 Morbid (severe) obesity due to excess calories; Z90.49 Acquired absence of other specified parts of digestive tract; Z90.710 Acquired absence of both cervix and uterus; Z79.84 Long term (current) use of oral hypoglycemic drugs
CPT/HCPCS: J1815; J3480; J7030

== ENCOUNTER 2018-10-24 19:01 | Observation (INO) | payer MEDICARE, MEDICAID ==
[~2018-10-24] VITALS: Ht 165.1 cm; Wt 172.0 kg
[~2018-10-24 19:01] MED LIST changes: +BENZTROPINE ME0.5 M1 PO; +GLUCOTROL10 M2 PO; +HYDROXYZINE HCL25 M1 PO; +OS-CAL 500+D31 EACH PO
[2018-10-24] MEDS ORDERED: HALDOL 5MG T5 MG/TAB PO (19:17)
[2018-10-24 19:58] LABS: BASO # 0.1 (0.02-0.10); EOS # 0.6 (0.04-0.40); EOS % 5.6 % (1.0-5.0); HEMATOCRIT 38.9 % (37.0-47.0); HEMOGLOBIN 11.9 g/dL (12.5-16.0); LYMPH# 2.9 (1.50-4.00); MEAN CELL VOLUME 75 fl (78-100); MEAN CORPUSCULAR HEMOGLOBIN 23 pg (27-31); MEAN CORPUSCULAR HGB CONC 31 g/dL (33-37); MONO # 0.6 (0.20-0.80); NEU # 6.2 (1.40-6.50); PLATELET COUNT 332 K/mm3 (130-400); RED BLOOD COUNT 5.16 M/mm3 (4.10-5.30); RED CELL DISTRIBUTION WIDTH 16.8 % (11.5-14.5); WHITE BLOOD COUNT 10.4 K/mm3 (4.8-10.8)
[2018-10-24 20:06] LABS: POTASSIUM 4.1 mmol/L (3.5-5.1)
[2018-10-24 20:08] LABS: TOTAL PROTEIN 7.1 g/dL (6.4-8.3)
[2018-10-24 20:10] LABS: TOTAL BILIRUBIN 0.4 mg/dL (0.2-1.2)
[2018-10-24 20:42] LABS: URINE APPEARANCE HAZY; URINE BILIRUBIN NEGATIVE (NEGATIVE); URINE BLOOD NEGATIVE (NEGATIVE); URINE COLOR YELLOW; URINE KETONE 1+ (NEGATIVE); URINE LEUKOCYTE ESTERASE NEGATIVE (NEGATIVE); URINE NITRATE NEGATIVE (NEGATIVE); URINE PROTEIN(semi-quant) NEGATIVE (NEGATIVE); URINE UROBILINOGEN NORMAL (NORMAL); URINE WBC 0-1 /hpf (0-3)
[2018-10-24 23:03] LABS: POTASSIUM 3.9 mmol/L (3.5-5.1)
[2018-10-24 23:05] LABS: CALCIUM 8.5 mg/dL (8.3-10.5)
[2018-10-25 00:03] VITALS: BP 107/80
[2018-10-25] MEDS ORDERED: DESVENLAFAXINE100 MG PO (00:27)
[2018-10-25] MEDS ORDERED: GLUCOPHAGE500 MG/TAB PO ×2 (00:32→00:33)
[2018-10-25 00:33] VITALS: BP 107/80
[2018-10-25 03:19] VITALS: BP 134/84
[2018-10-25 06:25] VITALS: BP 140/90
[2018-10-25 06:42] LABS: BASO # 0.1 (0.02-0.10); EOS # 0.6 (0.04-0.40); EOS % 7.5 % (1.0-5.0); HEMATOCRIT 38.4 % (37.0-47.0); HEMOGLOBIN 11.4 g/dL (12.5-16.0); LYMPH# 2.9 (1.50-4.00); MEAN CELL VOLUME 77 fl (78-100); MEAN CORPUSCULAR HGB CONC 30 g/dL (33-37); MEAN PLATELET VOLUME 9.9 fl (7.4-10.4); MONO # 0.5 (0.20-0.80); NEU # 3.6 (1.40-6.50); PLATELET COUNT 305 K/mm3 (130-400); RED BLOOD COUNT 4.99 M/mm3 (4.10-5.30); RED CELL DISTRIBUTION WIDTH 17.1 % (11.5-14.5); WHITE BLOOD COUNT 7.6 K/mm3 (4.8-10.8)
[2018-10-25 06:46] LABS: MEAN CORPUSCULAR HEMOGLOBIN 23 pg (27-31)
[2018-10-25 07:03] LABS: POTASSIUM 3.9 mmol/L (3.5-5.1)
[2018-10-25 07:04] LABS: CALCIUM 8.3 mg/dL (8.3-10.5)
[2018-10-25 11:00] VITALS: BP 113/77
[2018-10-25] MEDS ORDERED: LEVEMIR FLEX100 U/ML SQ (13:57)
[2018-10-25 15:08] VITALS: BP 122/76
== END 2018-10-25 15:23 | disposition home or self-care (01) ==
LOC: ED 19:01 → MED/SURG 23:29
PROVIDERS: ADMIT Physician Assistant
DX: E11.65 Type 2 diabetes mellitus with hyperglycemia (principal); Z79.84 Long term (current) use of oral hypoglycemic drugs; E86.0 Dehydration; E66.9 Obesity, unspecified; F41.8 Other specified anxiety disorders; F41.9 Anxiety disorder, unspecified; Z79.899 Other long term (current) drug therapy; Z90.710 Acquired absence of both cervix and uterus; Z88.6 Allergy status to analgesic agent; Z88.0 Allergy status to penicillin; Z88.2 Allergy status to sulfonamides; F20.9 Schizophrenia, unspecified; Z90.49 Acquired absence of other specified parts of digestive tract; E89.0 Postprocedural hypothyroidism
CPT/HCPCS: G0378; J1650; J1815; J1885; J2405; J7030

== ENCOUNTER 2018-11-04 13:03 | Emergency (ER) | payer MEDICARE, MEDICAID ==
[~2018-11-04] VITALS: Ht 167.6 cm; Wt 171.8 kg
[~2018-11-04 13:03] MED LIST changes: +DESVENLAFAXINE100 MG PO; +GLUCOPHAGE500 MG/TAB PO; +LEVEMIR FLEX100 U/ML SQ
[2018-11-04 13:41] LABS: EOS # 0.4 (0.04-0.40); EOS % 6.5 % (1.0-5.0); HEMATOCRIT 39.6 % (37.0-47.0); LYMPH# 1.9 (1.50-4.00); MEAN CELL VOLUME 77 fl (78-100); MEAN CORPUSCULAR HGB CONC 30 g/dL (33-37); MEAN PLATELET VOLUME 9.7 fl (7.4-10.4); MONO # 0.5 (0.20-0.80); NEU # 3.3 (1.40-6.50); PLATELET COUNT 293 K/mm3 (130-400); RED BLOOD COUNT 5.12 M/mm3 (4.10-5.30); RED CELL DISTRIBUTION WIDTH 16.7 % (11.5-14.5); WHITE BLOOD COUNT 6.1 K/mm3 (4.8-10.8)
[2018-11-04 13:59] LABS: MEAN CORPUSCULAR HEMOGLOBIN 23 pg (27-31)
[2018-11-04 14:02] LABS: POTASSIUM 4.4 mmol/L (3.5-5.1)
[2018-11-04 14:03] LABS: CALCIUM 8.8 mg/dL (8.3-10.5)
[2018-11-04 14:12] LABS: URINE APPEARANCE CLEAR; URINE BILIRUBIN NEGATIVE (NEGATIVE); URINE BLOOD NEGATIVE (NEGATIVE); URINE COLOR YELLOW; URINE KETONE NEGATIVE (NEGATIVE); URINE LEUKOCYTE ESTERASE NEGATIVE (NEGATIVE); URINE MUCUS PRESENT (NOT PRESENT); URINE NITRATE NEGATIVE (NEGATIVE); URINE PROTEIN(semi-quant) NEGATIVE (NEGATIVE); URINE UROBILINOGEN NORMAL (NORMAL)
[2018-11-04 17:05] VITALS: BP 131/91
== END 2018-11-04 17:12 | disposition home or self-care (01) ==
LOC: ED 13:03
PROVIDERS: Family Medicine
DX: E11.65 Type 2 diabetes mellitus with hyperglycemia (principal); E66.01 Morbid (severe) obesity due to excess calories; J45.909 Unspecified asthma, uncomplicated; K21.9 Gastro-esophageal reflux disease without esophagitis; I10 Essential (primary) hypertension; Z90.710 Acquired absence of both cervix and uterus; Z90.49 Acquired absence of other specified parts of digestive tract; E89.0 Postprocedural hypothyroidism; Z98.890 Other specified postprocedural states; Z79.4 Long term (current) use of insulin
CPT/HCPCS: J1815

== ENCOUNTER 2018-12-18 19:09 | Emergency (ER) | payer MEDICARE, MEDICAID ==
[2018-12-18 19:51] LABS: BASO # 0.1 (0.02-0.10); EOS # 0.5 (0.04-0.40); HEMATOCRIT 40.8 % (37.0-47.0); HEMOGLOBIN 12.4 g/dL (12.5-16.0); LYMPH# 2.6 (1.50-4.00); MEAN CELL VOLUME 78 fl (78-100); MEAN CORPUSCULAR HGB CONC 30 g/dL (33-37); MEAN PLATELET VOLUME 9.9 fl (7.4-10.4); MONO # 0.6 (0.20-0.80); NEU # 4.4 (1.40-6.50); PLATELET COUNT 307 K/mm3 (130-400); RED BLOOD COUNT 5.25 M/mm3 (4.10-5.30); RED CELL DISTRIBUTION WIDTH 16.2 % (11.5-14.5)
[2018-12-18 19:55] LABS: MEAN CORPUSCULAR HEMOGLOBIN 24 pg (27-31)
[2018-12-18 20:00] LABS: POTASSIUM 4.4 mmol/L (3.5-5.1); SODIUM 137 mmol/L (136-145)
[2018-12-18 20:01] LABS: CALCIUM 8.9 mg/dL (8.3-10.5)
[2018-12-18 20:03] LABS: CARBON DIOXIDE 22 mmol/L (22-29)
[2018-12-18 20:04] LABS: TOTAL BILIRUBIN 0.4 mg/dL (0.2-1.2)
[2018-12-18 20:07] LABS: AST-SGOT 10 U/L (5-34)
[2018-12-18 20:09] LABS: ALT/SGPT 17 U/L (0-55)
[2018-12-18 20:11] LABS: ACETAMINOPHEN < 1 ug/mL; ALCOHOL IN-HOUSE < 10 mg/dL (<10); GLUCOSE 530 mg/dL (65-105)
[2018-12-18 20:16] LABS: PH-URINE 6.5 (5.0 - 8.0); URINE APPEARANCE HAZY; URINE BILIRUBIN NEGATIVE (NEGATIVE); URINE COLOR YELLOW; URINE KETONE NEGATIVE (NEGATIVE); URINE NITRATE NEGATIVE (NEGATIVE); URINE PROTEIN(semi-quant) NEGATIVE (NEGATIVE); URINE UROBILINOGEN NORMAL (NORMAL)
[2018-12-18 20:17] LABS: URINE BLOOD TRACE (NEGATIVE); URINE LEUKOCYTE ESTERASE NEGATIVE (NEGATIVE); URINE WBC 0-1 /hpf (0-3)
[2018-12-18 22:16] VITALS: BP 103/80
== END 2018-12-18 22:16 | disposition home or self-care (01) ==
LOC: ED 19:09
PROVIDERS: Nurse Practitioner Family
DX: R45.851 Suicidal ideations (principal); E11.65 Type 2 diabetes mellitus with hyperglycemia; F25.9 Schizoaffective disorder, unspecified; I10 Essential (primary) hypertension; F41.9 Anxiety disorder, unspecified; F32.9 Major depressive disorder, single episode, unspecified; F60.3 Borderline personality disorder; F43.10 Post-traumatic stress disorder, unspecified; E66.01 Morbid (severe) obesity due to excess calories; Z79.4 Long term (current) use of insulin; Z87.891 Personal history of nicotine dependence; Z90.710 Acquired absence of both cervix and uterus; Z90.89 Acquired absence of other organs

== ENCOUNTER 2019-01-04 16:54 | Emergency (ER) | payer MEDICARE, MEDICAID ==
[~2019-01-04 16:54] MED LIST changes: +HALOPERIDOL20 M1 PO
[2019-01-04 18:21] LABS: BASO # 0.1 (0.02-0.10); EOS # 0.5 (0.04-0.40); EOS % 5.7 % (1.0-5.0); HEMATOCRIT 42.3 % (37.0-47.0); HEMOGLOBIN 12.9 g/dL (12.5-16.0); LYMPH# 2.5 (1.50-4.00); MEAN CELL VOLUME 79 fl (78-100); MEAN CORPUSCULAR HGB CONC 31 g/dL (33-37); MONO # 0.6 (0.20-0.80); NEU # 4.2 (1.40-6.50); PLATELET COUNT 280 K/mm3 (130-400); RED BLOOD COUNT 5.36 M/mm3 (4.10-5.30); RED CELL DISTRIBUTION WIDTH 16.2 % (11.5-14.5); WHITE BLOOD COUNT 7.9 K/mm3 (4.8-10.8)
[2019-01-04 18:24] LABS: MEAN CORPUSCULAR HEMOGLOBIN 24 pg (27-31)
[2019-01-04] MEDS ORDERED: GUAIFEN-CODEIN118 ML PO (19:21)
[2019-01-04 19:28] VITALS: BP 135/82
== END 2019-01-04 19:35 | disposition home or self-care (01) ==
LOC: ED 16:54
PROVIDERS: Family Medicine
DX: J06.9 Acute upper respiratory infection, unspecified (principal); E11.9 Type 2 diabetes mellitus without complications; F25.9 Schizoaffective disorder, unspecified; F43.10 Post-traumatic stress disorder, unspecified; Z90.49 Acquired absence of other specified parts of digestive tract; Z90.710 Acquired absence of both cervix and uterus; Z79.4 Long term (current) use of insulin

== ENCOUNTER 2019-02-04 20:33 | Emergency (ER) | payer MEDICARE, MEDICAID ==
[~2019-02-04] VITALS: Ht 165.1 cm; Wt 159.5 kg
[~2019-02-04 20:33] MED LIST changes: +GUAIFEN-CODEIN118 ML PO
[2019-02-04 20:49] LABS: BASO # 0.1 (0.02-0.10); EOS # 0.6 (0.04-0.40); EOS % 6.9 % (1.0-5.0); HEMATOCRIT 43.5 % (37.0-47.0); HEMOGLOBIN 13.4 g/dL (12.5-16.0); LYMPH# 3.2 (1.50-4.00); MEAN CELL VOLUME 80 fl (78-100); MEAN CORPUSCULAR HEMOGLOBIN 25 pg (27-31); MEAN CORPUSCULAR HGB CONC 31 g/dL (33-37); MEAN PLATELET VOLUME 9.9 fl (7.4-10.4); MONO # 0.7 (0.20-0.80); NEU # 4.6 (1.40-6.50); PLATELET COUNT 353 K/mm3 (130-400); RED BLOOD COUNT 5.47 M/mm3 (4.10-5.30); RED CELL DISTRIBUTION WIDTH 16.5 % (11.5-14.5); WHITE BLOOD COUNT 9.2 K/mm3 (4.8-10.8)
[2019-02-04 20:59] LABS: POTASSIUM 4.2 mmol/L (3.5-5.1)
[2019-02-04 21:00] LABS: CALCIUM 8.9 mg/dL (8.3-10.5)
[2019-02-04 21:03] LABS: TOTAL BILIRUBIN 0.4 mg/dL (0.2-1.2)
[2019-02-04 21:48] LABS: URINE APPEARANCE CLOUDY; URINE COLOR YELLOW; URINE PROTEIN(semi-quant) NEGATIVE (NEGATIVE)
[2019-02-04 21:49] LABS: URINE BILIRUBIN NEGATIVE (NEGATIVE); URINE BLOOD NEGATIVE (NEGATIVE); URINE KETONE NEGATIVE (NEGATIVE); URINE LEUKOCYTE ESTERASE NEGATIVE (NEGATIVE); URINE NITRATE NEGATIVE (NEGATIVE); URINE UROBILINOGEN NORMAL (NORMAL)
[2019-02-05 00:30] VITALS: BP 126/93
== END 2019-02-05 00:30 | disposition home or self-care (01) ==
LOC: ED 20:33
PROVIDERS: Nurse Practitioner Primary Care
DX: E11.65 Type 2 diabetes mellitus with hyperglycemia (principal); E03.9 Hypothyroidism, unspecified; Z79.4 Long term (current) use of insulin; Z90.89 Acquired absence of other organs
CPT/HCPCS: J1815; J2405; J7030

== ENCOUNTER 2019-03-10 18:24 | Emergency (ER) | payer MEDICARE, MEDICAID ==
[2019-03-10] MEDS ORDERED: CLOZAPINE25 MG PO (19:14)
[2019-03-10] MEDS ORDERED: CEPHALEXIN500 M1 PO (19:47)
[2019-03-10 20:30] VITALS: BP 112/82
== END 2019-03-10 20:35 | disposition home or self-care (01) ==
LOC: ED 18:24
DX: H60.92 Unspecified otitis externa, left ear (principal); E11.9 Type 2 diabetes mellitus without complications; I10 Essential (primary) hypertension; F25.0 Schizoaffective disorder, bipolar type; Z79.4 Long term (current) use of insulin

== ENCOUNTER 2019-07-29 13:18 | Emergency (ER) | payer MEDICARE, MEDICAID ==
[~2019-07-29] VITALS: Ht 167.6 cm; Wt 151.4 kg
[~2019-07-29 13:18] MED LIST changes: +CLOZAPINE25 MG PO
[2019-07-29 14:05] LABS: BASO # 0.1 (0.02-0.10); EOS # 0.5 (0.04-0.40); EOS % 4.6 % (1.0-5.0); HEMATOCRIT 43.5 % (37.0-47.0); HEMOGLOBIN 13.9 g/dL (12.5-16.0); MEAN CELL VOLUME 88 fl (78-100); MEAN CORPUSCULAR HEMOGLOBIN 28 pg (27-31); MEAN CORPUSCULAR HGB CONC 32 g/dL (33-37); MEAN PLATELET VOLUME 9.5 fl (7.4-10.4); MONO # 0.6 (0.20-0.80); NEU # 8.6 (1.40-6.50); PLATELET COUNT 324 K/mm3 (130-400); RED BLOOD COUNT 4.94 M/mm3 (4.10-5.30); RED CELL DISTRIBUTION WIDTH 14.1 % (11.5-14.5); WHITE BLOOD COUNT 11.8 K/mm3 (4.8-10.8)
[2019-07-29 14:13] LABS: ALBUMIN 4.2 g/dL (3.5-5.0); POTASSIUM 4.1 mmol/L (3.5-5.1)
[2019-07-29 14:15] LABS: URINE APPEARANCE CLEAR; URINE BILIRUBIN NEGATIVE (NEGATIVE); URINE BLOOD NEGATIVE (NEGATIVE); URINE COLOR YELLOW; URINE KETONE SMALL (NEGATIVE); URINE LEUKOCYTE ESTERASE NEGATIVE (NEGATIVE); URINE NITRATE NEGATIVE (NEGATIVE); URINE PROTEIN(semi-quant) NEGATIVE (NEGATIVE); URINE UROBILINOGEN NORMAL (NORMAL)
[2019-07-29 14:15] LABS: CALCIUM 9.1 mg/dL (8.3-10.5)
[2019-07-29 14:16] LABS: URINE MUCUS PRESENT (NOT PRESENT)
[2019-07-29 14:16] LABS: TOTAL PROTEIN 7.3 g/dL (6.4-8.3)
[2019-07-29 14:18] LABS: TOTAL BILIRUBIN 0.5 mg/dL (0.2-1.2)
[2019-07-29] MEDS ORDERED: CLOZAPINE200 M1 PO (15:37)
[2019-07-29] MEDS ORDERED: HALDOL 5MG T5 MG/TAB PO (15:38)
[2019-07-29] MEDS ORDERED: BENZTROPINE1 MG PO (15:39)
[2019-07-29] MEDS ORDERED: LEVEMIR FLEX100 U/ML SQ (15:43)
[2019-07-29] MEDS ORDERED: AMITRIPTYLINE100 M3 PO (15:46)
[2019-07-29] MEDS ORDERED: NOVOLOG FLEX100 U/ML SQ (15:46)
[2019-07-29] MEDS ORDERED: PRAZOSIN PO (15:47)
[2019-07-29] MEDS ORDERED: TEMAZEPAM PO (15:48)
[2019-07-29] MEDS ORDERED: HYDROXYZINE PAM25 M1 PO (15:51)
[2019-07-29 16:37] VITALS: BP 99/69
== END 2019-07-29 16:37 | disposition home or self-care (01) ==
LOC: ED 13:18
PROVIDERS: Nurse Practitioner Primary Care
DX: E11.65 Type 2 diabetes mellitus with hyperglycemia (principal); J45.909 Unspecified asthma, uncomplicated; Z79.4 Long term (current) use of insulin
CPT/HCPCS: J1815; J7030

== ENCOUNTER 2019-08-06 22:54 | Emergency (ER) | payer MEDICARE, MEDICAID ==
[~2019-08-06 22:54] MED LIST changes: +AMITRIPTYLINE100 M3 PO; +CLOZAPINE200 M1 PO; +NOVOLOG FLEX100 U/ML SQ; +PRAZOSIN PO; +TEMAZEPAM PO
[2019-08-07 00:42] LABS: BASO # 0.1 (0.02-0.10); EOS % 7.4 % (1.0-5.0); HEMOGLOBIN 13.5 g/dL (12.5-16.0); LYMPH# 3.7 (1.50-4.00); MEAN CELL VOLUME 88 fl (78-100); MEAN CORPUSCULAR HEMOGLOBIN 28 pg (27-31); MEAN CORPUSCULAR HGB CONC 32 g/dL (33-37); MEAN PLATELET VOLUME 9.1 fl (7.4-10.4); MONO # 0.7 (0.20-0.80); NEU # 5.7 (1.40-6.50); PLATELET COUNT 294 K/mm3 (130-400); RED CELL DISTRIBUTION WIDTH 14.1 % (11.5-14.5); WHITE BLOOD COUNT 10.9 K/mm3 (4.8-10.8)
[2019-08-07 00:44] LABS: URINE APPEARANCE CLEAR; URINE BILIRUBIN NEGATIVE (NEGATIVE); URINE BLOOD NEGATIVE (NEGATIVE); URINE COLOR YELLOW; URINE KETONE NEGATIVE (NEGATIVE); URINE LEUKOCYTE ESTERASE NEGATIVE (NEGATIVE); URINE NITRATE NEGATIVE (NEGATIVE); URINE PROTEIN(semi-quant) NEGATIVE (NEGATIVE); URINE UROBILINOGEN NORMAL (NORMAL); URINE WBC 0-1 /hpf (0-3)
[2019-08-07 00:44] LABS: EOS # 0.8 (0.04-0.40)
[2019-08-07 00:56] LABS: POTASSIUM 3.5 mmol/L (3.5-5.1)
[2019-08-07 00:57] LABS: CALCIUM 8.9 mg/dL (8.3-10.5)
[2019-08-07 00:58] LABS: TOTAL PROTEIN 6.8 g/dL (6.4-8.3)
[2019-08-07 01:00] LABS: TOTAL BILIRUBIN 0.3 mg/dL (0.2-1.2)
[2019-08-07 03:24] VITALS: BP 120/84
== END 2019-08-07 03:24 | disposition home or self-care (01) ==
LOC: ED 22:54
PROVIDERS: Nurse Practitioner Family
DX: E11.65 Type 2 diabetes mellitus with hyperglycemia (principal); H60.92 Unspecified otitis externa, left ear; R51 Headache; F25.9 Schizoaffective disorder, unspecified; Z79.4 Long term (current) use of insulin; Z79.890 Hormone replacement therapy; Z87.891 Personal history of nicotine dependence; Z90.710 Acquired absence of both cervix and uterus; Z90.89 Acquired absence of other organs; Z90.49 Acquired absence of other specified parts of digestive tract
CPT/HCPCS: J2405; J7030

== ENCOUNTER 2019-08-16 18:29 | Emergency (ER) | payer MEDICARE, MEDICAID ==
[2019-08-16 19:21] LABS: HEMATOCRIT 42.5 % (37.0-47.0); HEMOGLOBIN 13.5 g/dL (12.5-16.0); MEAN CELL VOLUME 88 fl (78-100); MEAN CORPUSCULAR HEMOGLOBIN 28 pg (27-31); MEAN CORPUSCULAR HGB CONC 32 g/dL (33-37); PLATELET COUNT 360 K/mm3 (130-400); RED BLOOD COUNT 4.85 M/mm3 (4.10-5.30); RED CELL DISTRIBUTION WIDTH 13.9 % (11.5-14.5)
[2019-08-16 19:32] LABS: LYMPHOCYTE 33 % (20-51); MONOCYTE 7 % (3-10); NEUTROPHILS 49 % (42-75); POTASSIUM 3.6 mmol/L (3.5-5.1)
[2019-08-16 19:33] LABS: CALCIUM 8.8 mg/dL (8.3-10.5)
[2019-08-16] MEDS ORDERED: ZOFRAN ODT4 MG PO (20:03)
[2019-08-16] MEDS ORDERED: PHENERGAN 25 TA25 MG PO (21:07)
[2019-08-16 21:15] VITALS: BP 139/89
== END 2019-08-16 21:15 | disposition home or self-care (01) ==
LOC: ED 18:29
PROVIDERS: Family Medicine
DX: D70.9 Neutropenia, unspecified (principal); R11.2 Nausea with vomiting, unspecified; R19.7 Diarrhea, unspecified; E11.9 Type 2 diabetes mellitus without complications; E03.9 Hypothyroidism, unspecified; J45.909 Unspecified asthma, uncomplicated; K21.9 Gastro-esophageal reflux disease without esophagitis; E66.9 Obesity, unspecified; Z79.4 Long term (current) use of insulin; Z79.890 Hormone replacement therapy
CPT/HCPCS: J2550

== ENCOUNTER 2019-08-17 18:34 | Emergency (ER) | payer MEDICARE, MEDICAID ==
[~2019-08-17] VITALS: Ht 167.6 cm; Wt 146.8 kg
[2019-08-17 20:37] VITALS: BP 120/90
== END 2019-08-17 20:37 | disposition home or self-care (01) ==
LOC: ED 18:34
DX: E11.649 Type 2 diabetes mellitus with hypoglycemia without coma (principal); Z79.4 Long term (current) use of insulin

== ENCOUNTER 2019-09-03 18:54 | Emergency (ER) | payer MEDICARE, MEDICAID ==
[~2019-09-03] VITALS: Ht 167.6 cm; Wt 145.1 kg
[2019-09-03 19:59] LABS: HEMATOCRIT 41.1 % (37.0-47.0); HEMOGLOBIN 13.2 g/dL (12.5-16.0); MEAN CELL VOLUME 89 fl (78-100); MEAN CORPUSCULAR HEMOGLOBIN 29 pg (27-31); MEAN CORPUSCULAR HGB CONC 32 g/dL (33-37); MEAN PLATELET VOLUME 9.6 fl (7.4-10.4); PLATELET COUNT 309 K/mm3 (130-400); RED BLOOD COUNT 4.62 M/mm3 (4.10-5.30); RED CELL DISTRIBUTION WIDTH 14.1 % (11.5-14.5); WHITE BLOOD COUNT 9.6 K/mm3 (4.8-10.8)
[2019-09-03 20:07] LABS: POTASSIUM 4.1 mmol/L (3.5-5.1)
[2019-09-03 20:08] LABS: CALCIUM 8.7 mg/dL (8.3-10.5)
[2019-09-03 20:11] LABS: TOTAL BILIRUBIN 0.3 mg/dL (0.2-1.2)
[2019-09-03 20:21] LABS: LYMPHOCYTE 32 % (20-51); MONOCYTE 11 % (3-10); NEUTROPHILS 50 % (42-75)
[2019-09-03 20:44] LABS: URINE APPEARANCE CLEAR; URINE BILIRUBIN NEGATIVE (NEGATIVE); URINE BLOOD NEGATIVE (NEGATIVE); URINE COLOR YELLOW; URINE KETONE NEGATIVE (NEGATIVE); URINE LEUKOCYTE ESTERASE NEGATIVE (NEGATIVE); URINE NITRATE NEGATIVE (NEGATIVE); URINE PROTEIN(semi-quant) NEGATIVE (NEGATIVE); URINE UROBILINOGEN NORMAL (NORMAL); URINE WBC 0-1 /hpf (0-3)
[2019-09-03 23:54] VITALS: BP 131/89
[2019-09-03 23:54] LABS: LIPASE 11 U/L (8-78)
== END 2019-09-03 23:54 | disposition home or self-care (01) ==
LOC: ED 18:54
PROVIDERS: Nurse Practitioner Family
DX: E11.65 Type 2 diabetes mellitus with hyperglycemia (principal); K52.9 Noninfective gastroenteritis and colitis, unspecified; K21.9 Gastro-esophageal reflux disease without esophagitis; F25.9 Schizoaffective disorder, unspecified; F41.9 Anxiety disorder, unspecified; E89.0 Postprocedural hypothyroidism; Z87.891 Personal history of nicotine dependence; Z79.4 Long term (current) use of insulin; Z79.890 Hormone replacement therapy
CPT/HCPCS: J1885; J2405; J2550; J3490; J7030

== ENCOUNTER 2019-09-16 17:46 | Emergency (ER) | payer MEDICARE, MEDICAID ==
[2019-09-16 18:25] LABS: BASO # 0.1 (0.02-0.10); EOS % 7.7 % (1.0-5.0); HEMATOCRIT 41.7 % (37.0-47.0); HEMOGLOBIN 13.2 g/dL (12.5-16.0); MEAN CELL VOLUME 90 fl (78-100); MEAN CORPUSCULAR HEMOGLOBIN 28 pg (27-31); MEAN CORPUSCULAR HGB CONC 32 g/dL (33-37); MEAN PLATELET VOLUME 9.3 fl (7.4-10.4); MONO # 0.5 (0.20-0.80); NEU # 5.4 (1.40-6.50); PLATELET COUNT 305 K/mm3 (130-400); RED BLOOD COUNT 4.64 M/mm3 (4.10-5.30); RED CELL DISTRIBUTION WIDTH 13.8 % (11.5-14.5); WHITE BLOOD COUNT 9.7 K/mm3 (4.8-10.8)
[2019-09-16 18:26] LABS: EOS # 0.8 (0.04-0.40)
[2019-09-16 18:32] LABS: URINE APPEARANCE CLEAR; URINE COLOR YELLOW; URINE KETONE 1+ (NEGATIVE); URINE PROTEIN(semi-quant) TRACE mg/dL (NEGATIVE)
[2019-09-16 18:33] LABS: URINE BILIRUBIN NEGATIVE (NEGATIVE); URINE BLOOD NEGATIVE (NEGATIVE); URINE LEUKOCYTE ESTERASE NEGATIVE (NEGATIVE); URINE NITRATE NEGATIVE (NEGATIVE); URINE UROBILINOGEN NORMAL (NORMAL); URINE WBC 0-1 /hpf (0-3)
[2019-09-16 18:35] LABS: POTASSIUM 3.6 mmol/L (3.5-5.1)
[2019-09-16 18:36] LABS: CALCIUM 8.6 mg/dL (8.3-10.5)
[2019-09-16] MEDS ORDERED: PHENERGAN 25 TA25 MG PO (20:39)
[2019-09-16 20:59] VITALS: BP 136/99
== END 2019-09-16 20:59 | disposition home or self-care (01) ==
LOC: ED 17:46
PROVIDERS: Nurse Practitioner Primary Care
DX: R11.2 Nausea with vomiting, unspecified (principal); R10.9 Unspecified abdominal pain
CPT/HCPCS: J1815

== ENCOUNTER → 2019-09-17 | Outpatient (CLI) | payer MEDICARE, MEDICAID ==
[~2019-09-17] VITALS: Ht 167.6 cm; Wt 145.1 kg
[2019-09-17 10:55] LABS: HEMATOCRIT 42.2 % (37.0-47.0); HEMOGLOBIN 13.4 g/dL (12.5-16.0); MEAN PLATELET VOLUME 9.1 fl (7.4-10.4); RED BLOOD COUNT 4.72 M/mm3 (4.10-5.30); RED CELL DISTRIBUTION WIDTH 13.9 % (11.5-14.5); WHITE BLOOD COUNT 11.7 K/mm3 (4.8-10.8)
[2019-09-17 11:12] LABS: ALBUMIN 4.1 g/dL (3.5-5.0)
[2019-09-17 11:13] LABS: POTASSIUM 4.1 mmol/L (3.5-5.1)
[2019-09-17 11:14] LABS: CALCIUM 9.1 mg/dL (8.3-10.5)
[2019-09-17 11:15] LABS: TOTAL PROTEIN 7.3 g/dL (6.4-8.3)
[2019-09-17 11:17] LABS: TOTAL BILIRUBIN 0.3 mg/dL (0.2-1.2)
[2019-09-17 11:30] VITALS: BP 116/75
[2019-09-17 11:49] LABS: URINE APPEARANCE CLOUDY; URINE BILIRUBIN NEGATIVE (NEGATIVE); URINE BLOOD NEGATIVE (NEGATIVE); URINE COLOR YELLOW; URINE KETONE 1+ (NEGATIVE); URINE LEUKOCYTE ESTERASE NEGATIVE (NEGATIVE); URINE MUCUS PRESENT (NOT PRESENT); URINE NITRATE NEGATIVE (NEGATIVE); URINE PROTEIN(semi-quant) TRACE mg/dL (NEGATIVE); URINE UROBILINOGEN NORMAL (NORMAL)
[2019-09-17 15:49] VITALS: BP 116/81
== END ==
LOC: AMSURD 10:32 → RAD 10:32 → EDSTATUS 10:51
PROVIDERS: Nurse Practitioner Family
DX: R19.7 Diarrhea, unspecified (principal); R11.11 Vomiting without nausea; E11.9 Type 2 diabetes mellitus without complications; Z90.710 Acquired absence of both cervix and uterus; Z90.49 Acquired absence of other specified parts of digestive tract
CPT/HCPCS: J7030; Q9967

== ENCOUNTER 2019-09-24 15:23 | Emergency (ER) | payer MEDICARE, MEDICAID ==
[2019-09-17 15:49] VITALS: BP 116/81
== END 2019-09-24 15:25 | disposition left against medical advice (07) ==
LOC: ED 15:23
DX: Z76.5 Malingerer [conscious simulation] (principal)

== ENCOUNTER → 2019-09-24 | Outpatient (CLI) | payer MEDICARE, MEDICAID ==
[2019-09-17 15:49] VITALS: BP 116/81
== END ==
LOC: RAD 16:42
DX: M25.571 Pain in right ankle and joints of right foot (principal)

== ENCOUNTER 2019-11-15 19:12 | Emergency (ER) | payer MEDICARE, MEDICAID ==
[~2019-11-15] VITALS: Ht 167.6 cm; Wt 140.9 kg
[2019-11-15] MEDS ORDERED: SYNJARDY 12.5-1 EACH PO (19:48)
[2019-11-15] MEDS ORDERED: TRULICITY0.75 MG/0. SC (19:49)
[2019-11-15 21:25] VITALS: BP 146/79
== END 2019-11-15 21:25 | disposition home or self-care (01) ==
LOC: ED 19:12
DX: K59.00 Constipation, unspecified (principal); E11.9 Type 2 diabetes mellitus without complications; Z79.4 Long term (current) use of insulin; Z90.49 Acquired absence of other specified parts of digestive tract; Z90.710 Acquired absence of both cervix and uterus; Z88.0 Allergy status to penicillin; Z88.2 Allergy status to sulfonamides; Z88.6 Allergy status to analgesic agent; Z88.8 Allergy status to other drugs, medicaments and biological substances; Z88.1 Allergy status to other antibiotic agents

== ENCOUNTER 2019-12-10 18:03 | Emergency (ER) | payer MEDICARE, MEDICAID ==
[~2019-12-10] VITALS: Ht 167.6 cm; Wt 145.5 kg
[~2019-12-10 18:03] MED LIST changes: +SYNJARDY 12.5-1 EACH PO; +TRULICITY0.75 MG/0. SC
[2019-12-10 20:20] LABS: BASO # 0.1 (0.02-0.10); EOS # 0.6 (0.04-0.40); EOS % 5.9 % (1.0-5.0); HEMATOCRIT 44.9 % (37.0-47.0); HEMOGLOBIN 14.3 g/dL (12.5-16.0); LYMPH# 3.7 (1.50-4.00); MEAN CELL VOLUME 88 fl (78-100); MEAN CORPUSCULAR HEMOGLOBIN 28 pg (27-31); MEAN CORPUSCULAR HGB CONC 32 g/dL (33-37); MEAN PLATELET VOLUME 9.2 fl (7.4-10.4); MONO # 0.7 (0.20-0.80); NEU # 5.6 (1.40-6.50); PLATELET COUNT 358 K/mm3 (130-400); RED BLOOD COUNT 5.12 M/mm3 (4.10-5.30); WHITE BLOOD COUNT 10.7 K/mm3 (4.8-10.8)
[2019-12-10 20:28] LABS: ALBUMIN 4.1 g/dL (3.5-5.0)
[2019-12-10 20:29] LABS: SODIUM 139 mmol/L (136-145)
[2019-12-10 20:30] LABS: CALCIUM 8.6 mg/dL (8.3-10.5)
[2019-12-10 20:31] LABS: GLUCOSE 323 mg/dL (65-105); TOTAL PROTEIN 7.5 g/dL (6.4-8.3)
[2019-12-10 20:32] LABS: CARBON DIOXIDE 18 mmol/L (22-29)
[2019-12-10 20:33] LABS: TOTAL BILIRUBIN 0.3 mg/dL (0.2-1.2)
[2019-12-10 20:36] LABS: AST-SGOT 14 U/L (5-34)
[2019-12-10 20:38] LABS: ALT/SGPT 18 U/L (0-55); LIPASE 11 U/L (8-78)
[2019-12-10 20:45] LABS: TROPONIN-I < 0.03 ng/mL (<0.030)
[2019-12-10 23:32] LABS: PH-URINE 6.5 (5.0 - 8.0); URINE APPEARANCE HAZY; URINE COLOR YELLOW; URINE PROTEIN(semi-quant) NEGATIVE (NEGATIVE)
[2019-12-10 23:33] LABS: URINE BILIRUBIN NEGATIVE (NEGATIVE); URINE BLOOD NEGATIVE (NEGATIVE); URINE KETONE 2+ (NEGATIVE); URINE LEUKOCYTE ESTERASE NEGATIVE (NEGATIVE); URINE NITRATE NEGATIVE (NEGATIVE); URINE UROBILINOGEN NORMAL (NORMAL); URINE WBC 0-1 /hpf (0-3)
[2019-12-10] MEDS ORDERED: CARAFATE S1 GM/10 ML PO (23:49)
[2019-12-11 01:51] LABS: POTASSIUM 3.8 mmol/L (3.5-5.1)
[2019-12-11 01:52] LABS: CALCIUM 7.7 mg/dL (8.3-10.5)
[2019-12-11 03:15] VITALS: BP 122/90
[2019-12-11] MEDS ORDERED: OLANZAPINE15 MG PO (03:51)
[2019-12-11] MEDS ORDERED: CAPLYTA42 MG PO (03:52)
[2019-12-11] MEDS ORDERED: PRISTIQ100 MG PO (03:55)
[2019-12-11] MEDS ORDERED: TRESIBA100 UNIT/1 SQ (03:56)
== END 2019-12-11 03:15 | disposition home or self-care (01) ==
LOC: ED 18:03 → MED/SURG 12-11 03:17 → ED 12-11 03:17
PROVIDERS: Nurse Practitioner Family
DX: K21.00 Gastro-esophageal reflux disease with esophagitis, without bleeding (principal); E11.10 Type 2 diabetes mellitus with ketoacidosis without coma; Z79.4 Long term (current) use of insulin; Z87.19 Personal history of other diseases of the digestive system; I10 Essential (primary) hypertension; K21.9 Gastro-esophageal reflux disease without esophagitis; Z87.891 Personal history of nicotine dependence; Z79.1 Long term (current) use of non-steroidal anti-inflammatories (NSAID)
CPT/HCPCS: J3480; J3490; J7030

== ENCOUNTER → 2020-03-05 | Outpatient (CLI) | payer MEDICARE, MEDICAID ==
[2019-12-12 09:21] VITALS: BP 111/78
[~2020-03-05] MED LIST changes: +CAPLYTA42 MG PO; +CARAFATE S1 GM/10 ML PO; +OLANZAPINE15 MG PO; +TRESIBA100 UNIT/1 SQ
== END ==
LOC: LAB 16:51
DX: R50.9 Fever, unspecified (principal); Z20.822 Contact with and (suspected) exposure to COVID-19

== ENCOUNTER 2020-04-14 16:53 | Emergency (ER) | payer MEDICARE, MEDICAID ==
[~2020-04-14 16:53] MED LIST changes: +PRAZOSIN HYDROCH5 MG PO; -PRAZOSIN PO
[2020-04-14 18:31] LABS: BASO # 0.1 (0.02-0.10); EOS # 0.4 (0.04-0.40); EOS % 5.3 % (1.0-5.0); HEMATOCRIT 37.7 % (37.0-47.0); HEMOGLOBIN 12.4 g/dL (12.5-16.0); LYMPH# 2.4 (1.50-4.00); MEAN CELL VOLUME 85 fl (78-100); MEAN CORPUSCULAR HEMOGLOBIN 28 pg (27-31); MEAN CORPUSCULAR HGB CONC 33 g/dL (33-37); MEAN PLATELET VOLUME 9.5 fl (7.4-10.4); MONO # 0.5 (0.20-0.80); NEU # 4.2 (1.40-6.50); PLATELET COUNT 290 K/mm3 (130-400); RED BLOOD COUNT 4.45 M/mm3 (4.10-5.30); RED CELL DISTRIBUTION WIDTH 13.9 % (11.5-14.5); WHITE BLOOD COUNT 7.6 K/mm3 (4.8-10.8)
[2020-04-14 18:45] LABS: CALCIUM 8.8 mg/dL (8.3-10.5)
[2020-04-14 18:48] LABS: TOTAL BILIRUBIN 0.5 mg/dL (0.2-1.2)
[2020-04-14 19:01] LABS: URINE APPEARANCE CLEAR; URINE BILIRUBIN NEGATIVE (NEGATIVE); URINE BLOOD NEGATIVE (NEGATIVE); URINE COLOR YELLOW; URINE KETONE NEGATIVE (NEGATIVE); URINE LEUKOCYTE ESTERASE NEGATIVE (NEGATIVE); URINE NITRATE NEGATIVE (NEGATIVE); URINE PROTEIN(semi-quant) NEGATIVE (NEGATIVE); URINE UROBILINOGEN NORMAL (NORMAL); URINE WBC 0-1 /hpf (0-3)
[2020-04-14] MEDS ORDERED: CYCLOBENZAPRINE10 M1 PO (21:56)
[2020-04-14] MEDS ORDERED: FAMOTIDINE20 MG PO (21:57)
[2020-04-14] MEDS ORDERED: OLANZAPINE10 M3 PO (21:58)
[2020-04-14] MEDS ORDERED: MOBIC7.5 MG PO (21:59)
[2020-04-14] MEDS ORDERED: NEURONTIN100 M1 PO (22:00)
[2020-04-14] MEDS ORDERED: GLUCOTROL XL10 M1 PO (22:01)
[2020-04-14] MEDS ORDERED: LEVEMIR100 U/M1 SQ (22:04)
[2020-04-14 22:17] LABS: POTASSIUM 3.5 mmol/L (3.5-5.1)
[2020-04-14 22:18] LABS: CALCIUM 8.3 mg/dL (8.3-10.5)
[2020-04-14 22:58] VITALS: BP 138/102
== END 2020-04-14 22:58 | disposition home or self-care (01) ==
LOC: ED 16:53
PROVIDERS: Nurse Practitioner Family
DX: E11.65 Type 2 diabetes mellitus with hyperglycemia (principal); E86.0 Dehydration; F17.210 Nicotine dependence, cigarettes, uncomplicated; I10 Essential (primary) hypertension; E03.9 Hypothyroidism, unspecified; F32.9 Major depressive disorder, single episode, unspecified; K21.9 Gastro-esophageal reflux disease without esophagitis; F25.9 Schizoaffective disorder, unspecified; Z79.4 Long term (current) use of insulin; Z79.890 Hormone replacement therapy
CPT/HCPCS: J1815; J2405; J3490; J7030

== ENCOUNTER 2020-06-08 22:04 | Emergency (ER) | payer MEDICARE, MEDICAID ==
[~2020-06-08 22:04] MED LIST changes: +CYCLOBENZAPRINE10 M1 PO; +FAMOTIDINE20 MG PO; +GLUCOTROL XL10 M1 PO; +LEVEMIR100 U/M1 SQ; +MOBIC7.5 MG PO; +NEURONTIN100 M1 PO; +OLANZAPINE10 M3 PO
[2020-06-08 22:23] LABS: BASO # 0.1 (0.02-0.10); EOS # 0.4 (0.04-0.40); EOS % 5.2 % (1.0-5.0); HEMATOCRIT 36.6 % (37.0-47.0); HEMOGLOBIN 11.7 g/dL (12.5-16.0); LYMPH# 3.4 (1.50-4.00); MEAN CELL VOLUME 88 fl (78-100); MEAN CORPUSCULAR HEMOGLOBIN 28 pg (27-31); MEAN CORPUSCULAR HGB CONC 32 g/dL (33-37); MEAN PLATELET VOLUME 8.8 fl (7.4-10.4); MONO # 0.5 (0.20-0.80); NEU # 4.1 (1.40-6.50); PLATELET COUNT 322 K/mm3 (130-400); RED BLOOD COUNT 4.17 M/mm3 (4.10-5.30); RED CELL DISTRIBUTION WIDTH 13.3 % (11.5-14.5); WHITE BLOOD COUNT 8.5 K/mm3 (4.8-10.8)
[2020-06-08 22:31] LABS: POTASSIUM 4.1 mmol/L (3.5-5.1)
[2020-06-08 22:32] LABS: CALCIUM 9.3 mg/dL (8.3-10.5)
[2020-06-08 22:35] LABS: TOTAL BILIRUBIN 0.3 mg/dL (0.2-1.2)
[2020-06-08 23:34] LABS: URINE APPEARANCE HAZY; URINE BILIRUBIN NEGATIVE (NEGATIVE); URINE BLOOD NEGATIVE (NEGATIVE); URINE COLOR YELLOW; URINE GLUCOSE NEGATIVE (NEGATIVE); URINE KETONE NEGATIVE (NEGATIVE); URINE LEUKOCYTE ESTERASE NEGATIVE (NEGATIVE); URINE NITRATE NEGATIVE (NEGATIVE); URINE PROTEIN(semi-quant) NEGATIVE (NEGATIVE); URINE UROBILINOGEN NORMAL (NORMAL); URINE WBC 0-1 /hpf (0-3)
[2020-06-09] MEDS ORDERED: LEVOTHYROXINE175 MCG PO (00:15)
[2020-06-09] MEDS ORDERED: FOLIXAPURE5000 UNIT PO (00:16)
[2020-06-09] MEDS ORDERED: FLOVENT HFA10.6 GM IH (00:19)
[2020-06-09] MEDS ORDERED: CAPLYTA42 MG PO (00:20)
[2020-06-09] MEDS ORDERED: INSULIN LI100 UNIT/2 SQ (00:21)
[2020-06-09 00:29] VITALS: BP 134/98
== END 2020-06-09 00:29 | disposition home or self-care (01) ==
LOC: ED 22:04
PROVIDERS: Nurse Practitioner
DX: R11.0 Nausea (principal); E11.649 Type 2 diabetes mellitus with hypoglycemia without coma; I10 Essential (primary) hypertension; F25.9 Schizoaffective disorder, unspecified; F32.9 Major depressive disorder, single episode, unspecified; F17.290 Nicotine dependence, other tobacco product, uncomplicated; Z79.4 Long term (current) use of insulin; Z79.51 Long term (current) use of inhaled steroids; Z79.899 Other long term (current) drug therapy

== ENCOUNTER 2020-07-13 20:52 | Emergency (ER) | payer MEDICARE, MEDICAID ==
[~2020-07-13 20:52] MED LIST changes: +FLOVENT HFA10.6 GM IH; +FOLIXAPURE5000 UNIT PO; +INSULIN LI100 UNIT/2 SQ
[2020-07-13 21:23] LABS: BASO # 0.06 (0.02-0.10); EOS % 7.4 % (1.0-5.0); HEMATOCRIT 39.2 % (37.0-47.0); HEMOGLOBIN 13.4 g/dL (12.5-16.0); LYMPH# 3.29 (1.50-4.00); MEAN CELL VOLUME 82 fl (78-100); MEAN CORPUSCULAR HEMOGLOBIN 28 pg (27-31); MEAN CORPUSCULAR HGB CONC 34 g/dL (33-37); MEAN PLATELET VOLUME 9.1 fl (7.4-10.4); MONO # 0.43 (0.20-0.80); NEU # 3.73 (1.40-6.50); PLATELET COUNT 285 K/mm3 (130-400); RED BLOOD COUNT 4.76 M/mm3 (4.10-5.30); RED CELL DISTRIBUTION WIDTH 12.2 % (11.5-14.5); WHITE BLOOD COUNT 8.1 K/mm3 (4.8-10.8)
[2020-07-13] MEDS ORDERED: HUMALOG KWIKPEN SQ (21:32)
[2020-07-13 21:35] LABS: ALBUMIN 4.2 g/dL (3.5-5.0)
[2020-07-13] MEDS ORDERED: REMERON15 MG PO (21:35)
[2020-07-13 21:36] LABS: CALCIUM 9.3 mg/dL (8.3-10.5)
[2020-07-13 21:37] LABS: TOTAL PROTEIN 7.3 g/dL (6.4-8.3)
[2020-07-13 21:39] LABS: URINE APPEARANCE CLOUDY; URINE BILIRUBIN NEGATIVE (NEGATIVE); URINE COLOR YELLOW; URINE GLUCOSE NEGATIVE (NEGATIVE); URINE KETONE NEGATIVE (NEGATIVE); URINE NITRATE NEGATIVE (NEGATIVE); URINE PROTEIN(semi-quant) NEGATIVE (NEGATIVE); URINE UROBILINOGEN NORMAL (NORMAL)
[2020-07-13 21:39] LABS: TOTAL BILIRUBIN 0.4 mg/dL (0.2-1.2)
[2020-07-13 21:40] LABS: URINE BLOOD NEGATIVE (NEGATIVE); URINE LEUKOCYTE ESTERASE TRACE (NEGATIVE)
[2020-07-13 22:45] VITALS: BP 124/80
== END 2020-07-13 22:46 | disposition home or self-care (01) ==
LOC: ED 20:52
PROVIDERS: Nurse Practitioner
DX: R07.89 Other chest pain (principal); I10 Essential (primary) hypertension; F32.9 Major depressive disorder, single episode, unspecified; F41.9 Anxiety disorder, unspecified; F43.10 Post-traumatic stress disorder, unspecified; E07.9 Disorder of thyroid, unspecified; Z79.890 Hormone replacement therapy; Z79.899 Other long term (current) drug therapy

== ENCOUNTER 2020-07-28 15:49 | Emergency (ER) | payer MEDICARE, MEDICAID ==
[~2020-07-28 15:49] MED LIST changes: +HUMALOG KWIKPEN SQ; +REMERON15 MG PO
[2020-07-28] MEDS ORDERED: BELSOMRA20 MG PO (15:59)
[2020-07-28] MEDS ORDERED: FAMOTIDINE20 MG PO (16:05)
[2020-07-28] MEDS ORDERED: LIDOCAINE PAIN1 EACH TP (16:06)
[2020-07-28 16:15] LABS: BASO # 0.07 (0.02-0.10); EOS # 0.72 (0.04-0.40); EOS % 9.1 % (1.0-5.0); HEMATOCRIT 37.9 % (37.0-47.0); HEMOGLOBIN 12.7 g/dL (12.5-16.0); LYMPH# 3.43 (1.50-4.00); MEAN CELL VOLUME 83 fl (78-100); MEAN CORPUSCULAR HEMOGLOBIN 28 pg (27-31); MEAN CORPUSCULAR HGB CONC 34 g/dL (33-37); MONO # 0.53 (0.20-0.80); NEU # 3.16 (1.40-6.50); PLATELET COUNT 301 K/mm3 (130-400); RED BLOOD COUNT 4.55 M/mm3 (4.10-5.30); RED CELL DISTRIBUTION WIDTH 12.5 % (11.5-14.5); WHITE BLOOD COUNT 7.9 K/mm3 (4.8-10.8)
[2020-07-28 16:20] LABS: CALCIUM 8.7 mg/dL (8.3-10.5)
[2020-07-28 16:21] LABS: ALBUMIN 3.9 g/dL (3.5-5.0); POTASSIUM 3.7 mmol/L (3.5-5.1); TOTAL PROTEIN 6.8 g/dL (6.4-8.3)
[2020-07-28 16:23] LABS: TOTAL BILIRUBIN 0.3 mg/dL (0.2-1.2)
[2020-07-28 18:27] LABS: URINE APPEARANCE CLEAR; URINE BILIRUBIN NEGATIVE (NEGATIVE); URINE BLOOD NEGATIVE (NEGATIVE); URINE COLOR YELLOW; URINE GLUCOSE NEGATIVE (NEGATIVE); URINE KETONE NEGATIVE (NEGATIVE); URINE LEUKOCYTE ESTERASE NEGATIVE (NEGATIVE); URINE NITRATE NEGATIVE (NEGATIVE); URINE PROTEIN(semi-quant) TRACE mg/dL (NEGATIVE); URINE UROBILINOGEN NORMAL (NORMAL)
[2020-07-28 18:28] LABS: URINE MUCUS PRESENT (NOT PRESENT)
[2020-07-28 21:09] VITALS: BP 129/79
== END 2020-07-28 21:10 | disposition home or self-care (01) ==
LOC: ED 15:49
PROVIDERS: Nurse Practitioner Family
DX: E10.649 Type 1 diabetes mellitus with hypoglycemia without coma (principal); I10 Essential (primary) hypertension; K21.9 Gastro-esophageal reflux disease without esophagitis; J45.909 Unspecified asthma, uncomplicated; F32.9 Major depressive disorder, single episode, unspecified; F41.9 Anxiety disorder, unspecified; E07.9 Disorder of thyroid, unspecified; G47.00 Insomnia, unspecified; F25.9 Schizoaffective disorder, unspecified; Z79.4 Long term (current) use of insulin; Z79.890 Hormone replacement therapy
CPT/HCPCS: J2405

== ENCOUNTER 2020-08-19 16:44 | Emergency (ER) | payer MEDICARE, MEDICAID ==
[~2020-08-19 16:44] MED LIST changes: +BELSOMRA20 MG PO; +LIDOCAINE PAIN1 EACH TP
[2020-08-19 18:08] LABS: EOS % 5.3 % (1.0-5.0); HEMATOCRIT 39.2 % (37.0-47.0); MEAN CELL VOLUME 84 fl (78-100); MEAN CORPUSCULAR HEMOGLOBIN 28 pg (27-31); MEAN CORPUSCULAR HGB CONC 33 g/dL (33-37); MEAN PLATELET VOLUME 8.4 fl (7.4-10.4); NEU # 3.69 (1.40-6.50); PLATELET COUNT 271 K/mm3 (130-400); RED BLOOD COUNT 4.67 M/mm3 (4.10-5.30); RED CELL DISTRIBUTION WIDTH 12.4 % (11.5-14.5); WHITE BLOOD COUNT 7.8 K/mm3 (4.8-10.8)
[2020-08-19 18:09] LABS: BASO # 0.06 (0.02-0.10); EOS # 0.41 (0.04-0.40); LYMPH# 3.15 (1.50-4.00); MONO # 0.46 (0.20-0.80)
[2020-08-19 18:28] LABS: URINE APPEARANCE HAZY; URINE COLOR YELLOW
[2020-08-19 18:29] LABS: URINE BILIRUBIN 1+ (NEGATIVE); URINE BLOOD NEGATIVE (NEGATIVE); URINE GLUCOSE NEGATIVE (NEGATIVE); URINE KETONE NEGATIVE (NEGATIVE); URINE LEUKOCYTE ESTERASE TRACE (NEGATIVE); URINE MUCUS PRESENT (NOT PRESENT); URINE NITRATE NEGATIVE (NEGATIVE); URINE PROTEIN(semi-quant) TRACE mg/dL (NEGATIVE); URINE UROBILINOGEN NORMAL (NORMAL)
[2020-08-19 18:31] LABS: ALBUMIN 4.1 g/dL (3.5-5.0); POTASSIUM 4.1 mmol/L (3.5-5.1)
[2020-08-19 18:32] LABS: CALCIUM 9.1 mg/dL (8.3-10.5)
[2020-08-19 18:33] LABS: TOTAL PROTEIN 7.3 g/dL (6.4-8.3)
[2020-08-19 18:35] LABS: TOTAL BILIRUBIN 0.7 mg/dL (0.2-1.2)
[2020-08-19] MEDS ORDERED: CARAFATE 1GM1 G PO (19:39)
[2020-08-19] MEDS ORDERED: PHENERGAN 25 TA25 MG PO (19:39)
[2020-08-19 19:54] VITALS: BP 140/79
== END 2020-08-19 19:54 | disposition home or self-care (01) ==
LOC: ED 16:44
PROVIDERS: Physician Assistant
DX: E86.0 Dehydration (principal); E11.9 Type 2 diabetes mellitus without complications; R19.7 Diarrhea, unspecified; K21.9 Gastro-esophageal reflux disease without esophagitis; R51.9 Headache, unspecified; R11.2 Nausea with vomiting, unspecified; F25.9 Schizoaffective disorder, unspecified; F43.10 Post-traumatic stress disorder, unspecified; Z90.49 Acquired absence of other specified parts of digestive tract; Z20.822 Contact with and (suspected) exposure to COVID-19; Z79.4 Long term (current) use of insulin; Z79.899 Other long term (current) drug therapy
CPT/HCPCS: J1885; J2550; J7030

== ENCOUNTER 2020-09-01 09:52 | Emergency (ER) | payer MEDICARE, MEDICAID ==
[~2020-09-01 09:52] MED LIST changes: +CARAFATE 1GM1 G PO
[2020-09-01] MEDS ORDERED: BRINTELLIX20 MG PO (10:10)
[2020-09-01] MEDS ORDERED: METOCLOPRAMIDE10 M5 PO (10:11)
[2020-09-01 11:11] LABS: ALBUMIN 4.2 g/dL (3.5-5.0)
[2020-09-01 11:12] LABS: POTASSIUM 4.2 mmol/L (3.5-5.1)
[2020-09-01 11:13] LABS: CALCIUM 9.2 mg/dL (8.3-10.5)
[2020-09-01 11:16] LABS: URINE APPEARANCE HAZY; URINE BILIRUBIN NEGATIVE (NEGATIVE); URINE BLOOD NEGATIVE (NEGATIVE); URINE COLOR YELLOW; URINE KETONE NEGATIVE (NEGATIVE); URINE LEUKOCYTE ESTERASE NEGATIVE (NEGATIVE); URINE NITRATE NEGATIVE (NEGATIVE); URINE PROTEIN(semi-quant) TRACE mg/dL (NEGATIVE); URINE UROBILINOGEN NORMAL (NORMAL)
[2020-09-01 11:16] LABS: TOTAL BILIRUBIN 0.4 mg/dL (0.2-1.2)
[2020-09-01 13:43] LABS: BASO # 0.08 (0.02-0.10); EOS # 0.35 (0.04-0.40); EOS % 4.6 % (1.0-5.0); HEMATOCRIT 39.6 % (37.0-47.0); LYMPH# 2.32 (1.50-4.00); MEAN CELL VOLUME 86 fl (78-100); MEAN CORPUSCULAR HEMOGLOBIN 28 pg (27-31); MEAN CORPUSCULAR HGB CONC 33 g/dL (33-37); MONO # 0.45 (0.20-0.80); NEU # 4.44 (1.40-6.50); PLATELET COUNT 290 K/mm3 (130-400); RED CELL DISTRIBUTION WIDTH 12.6 % (11.5-14.5); WHITE BLOOD COUNT 7.7 K/mm3 (4.8-10.8)
[2020-09-01 14:20] VITALS: BP 128/87
== END 2020-09-01 14:22 | disposition home or self-care (01) ==
LOC: ED 09:52
PROVIDERS: Physician Assistant
DX: E11.649 Type 2 diabetes mellitus with hypoglycemia without coma (principal); E86.0 Dehydration; R19.7 Diarrhea, unspecified; F20.9 Schizophrenia, unspecified; F32.9 Major depressive disorder, single episode, unspecified; F41.9 Anxiety disorder, unspecified; K51.918 Ulcerative colitis, unspecified with other complication; Z79.4 Long term (current) use of insulin; Z79.899 Other long term (current) drug therapy
CPT/HCPCS: J7030

== ENCOUNTER 2020-10-13 18:13 | Emergency (ER) | payer MEDICARE, MEDICAID ==
[~2020-10-13] VITALS: Wt 129.5 kg
[~2020-10-13 18:13] MED LIST changes: +BRINTELLIX20 MG PO
[2020-10-13] MEDS ORDERED: PRAZOSIN PO (18:53)
[2020-10-13] MEDS ORDERED: ATARAX 10MG10 MG/TAB PO (18:54)
[2020-10-13 19:43] LABS: BASO # 0.02 (0.02-0.10); EOS # 0.35 (0.04-0.40); EOS % 4.7 % (1.0-5.0); HEMATOCRIT 37.1 % (37.0-47.0); HEMOGLOBIN 12.3 g/dL (12.5-16.0); LYMPH# 2.95 (1.50-4.00); MEAN CELL VOLUME 86 fl (78-100); MEAN CORPUSCULAR HEMOGLOBIN 29 pg (27-31); MEAN CORPUSCULAR HGB CONC 33 g/dL (33-37); MEAN PLATELET VOLUME 8.9 fl (7.4-10.4); MONO # 0.53 (0.20-0.80); NEU # 3.57 (1.40-6.50); PLATELET COUNT 242 K/mm3 (130-400); RED BLOOD COUNT 4.32 M/mm3 (4.10-5.30); RED CELL DISTRIBUTION WIDTH 12.8 % (11.5-14.5); WHITE BLOOD COUNT 7.4 K/mm3 (4.8-10.8)
[2020-10-13 19:55] LABS: POTASSIUM 3.9 mmol/L (3.5-5.1)
[2020-10-13 19:56] LABS: CALCIUM 9.4 mg/dL (8.3-10.5)
[2020-10-13 19:57] LABS: TOTAL PROTEIN 6.8 g/dL (6.4-8.3)
[2020-10-13 19:59] LABS: TOTAL BILIRUBIN 0.4 mg/dL (0.2-1.2)
[2020-10-13 20:01] LABS: D-DIMER 0.24 mg/L FEU (0.15-0.50)
[2020-10-13 22:38] LABS: URINE APPEARANCE HAZY; URINE BILIRUBIN NEGATIVE (NEGATIVE); URINE BLOOD NEGATIVE (NEGATIVE); URINE COLOR YELLOW; URINE GLUCOSE NEGATIVE (NEGATIVE); URINE KETONE NEGATIVE (NEGATIVE); URINE LEUKOCYTE ESTERASE TRACE (NEGATIVE); URINE NITRATE NEGATIVE (NEGATIVE); URINE PROTEIN(semi-quant) NEGATIVE (NEGATIVE); URINE UROBILINOGEN NORMAL (NORMAL)
[2020-10-13 22:39] LABS: URINE MUCUS PRESENT (NOT PRESENT)
[2020-10-14] MEDS ORDERED: PROVENTIL0.09 MG/A1 IH (00:02)
[2020-10-14 00:12] VITALS: BP 128/78
== END 2020-10-14 00:12 | disposition home or self-care (01) ==
LOC: ED 18:13
PROVIDERS: Nurse Practitioner Family
DX: J20.9 Acute bronchitis, unspecified (principal); I10 Essential (primary) hypertension; E11.9 Type 2 diabetes mellitus without complications; E66.9 Obesity, unspecified; K21.9 Gastro-esophageal reflux disease without esophagitis; F32.9 Major depressive disorder, single episode, unspecified; F41.9 Anxiety disorder, unspecified; F43.10 Post-traumatic stress disorder, unspecified; Z79.4 Long term (current) use of insulin; Z79.899 Other long term (current) drug therapy
CPT/HCPCS: J0595; J1200; J1885; J2060; J2405; J2550; J7030

== ENCOUNTER 2020-10-16 07:01 | Emergency (ER) | payer MEDICARE, MEDICAID ==
[~2020-10-16] VITALS: Ht 167.6 cm; Wt 127.0 kg
[~2020-10-16 07:01] MED LIST changes: +ATARAX 10MG10 MG/TAB PO; +PRAZOSIN PO
[2020-10-16] MEDS ORDERED: VIBRAMYCIN HYC100 MG PO (07:20)
[2020-10-16] MEDS ORDERED: BENZONATATE100 M2 PO (07:20)
[2020-10-16 08:33] LABS: BASO # 0.02 (0.02-0.10); EOS # 0.29 (0.04-0.40); EOS % 4.6 % (1.0-5.0); HEMATOCRIT 36.8 % (37.0-47.0); HEMOGLOBIN 12.3 g/dL (12.5-16.0); LYMPH# 2.29 (1.50-4.00); MEAN CELL VOLUME 85 fl (78-100); MEAN CORPUSCULAR HEMOGLOBIN 29 pg (27-31); MEAN CORPUSCULAR HGB CONC 33 g/dL (33-37); MONO # 0.36 (0.20-0.80); PLATELET COUNT 221 K/mm3 (130-400); RED BLOOD COUNT 4.32 M/mm3 (4.10-5.30); RED CELL DISTRIBUTION WIDTH 12.3 % (11.5-14.5); WHITE BLOOD COUNT 6.3 K/mm3 (4.8-10.8)
[2020-10-16 08:40] LABS: ALBUMIN 3.9 g/dL (3.5-5.0)
[2020-10-16 08:41] LABS: POTASSIUM 4.5 mmol/L (3.5-5.1)
[2020-10-16 08:42] LABS: CALCIUM 9.3 mg/dL (8.3-10.5)
[2020-10-16 08:43] LABS: TOTAL PROTEIN 6.7 g/dL (6.4-8.3)
[2020-10-16 08:45] LABS: TOTAL BILIRUBIN 0.9 mg/dL (0.2-1.2)
[2020-10-16 08:58] LABS: URINE COLOR YELLOW
[2020-10-16 08:59] LABS: URINE APPEARANCE CLEAR; URINE BILIRUBIN NEGATIVE (NEGATIVE); URINE BLOOD NEGATIVE (NEGATIVE); URINE KETONE 1+ (NEGATIVE); URINE LEUKOCYTE ESTERASE NEGATIVE (NEGATIVE); URINE NITRATE NEGATIVE (NEGATIVE); URINE PROTEIN(semi-quant) NEGATIVE (NEGATIVE); URINE UROBILINOGEN NORMAL (NORMAL); URINE WBC 0-1 /hpf (0-3)
[2020-10-16 13:09] VITALS: BP 143/92
== END 2020-10-16 13:10 | disposition home or self-care (01) ==
LOC: ED 07:01
PROVIDERS: Nurse Practitioner
DX: R73.9 Hyperglycemia, unspecified (principal); R19.7 Diarrhea, unspecified; R11.2 Nausea with vomiting, unspecified
CPT/HCPCS: J1815; J2405; J7030

== ENCOUNTER 2020-11-04 17:14 | Emergency (ER) | payer MEDICARE, MEDICAID ==
[~2020-11-04 17:14] MED LIST changes: +BENZONATATE100 M2 PO
[2020-11-04] MEDS ORDERED: LEVEMIR FLEX100 U/ML SQ (17:21)
[2020-11-04] MEDS ORDERED: TRULICITY3 MG/0.5 M SQ (17:21)
[2020-11-04] MEDS ORDERED: VIIBRYD10 MG PO (17:21)
[2020-11-04 17:51] LABS: BASO # 0.04 (0.02-0.10); EOS # 0.29 (0.04-0.40); EOS % 3.9 % (1.0-5.0); HEMATOCRIT 36.2 % (37.0-47.0); HEMOGLOBIN 12.1 g/dL (12.5-16.0); MEAN CELL VOLUME 86 fl (78-100); MEAN CORPUSCULAR HEMOGLOBIN 29 pg (27-31); MEAN CORPUSCULAR HGB CONC 33 g/dL (33-37); MEAN PLATELET VOLUME 8.6 fl (7.4-10.4); MONO # 0.45 (0.20-0.80); NEU # 3.43 (1.40-6.50); PLATELET COUNT 275 K/mm3 (130-400); RED BLOOD COUNT 4.21 M/mm3 (4.10-5.30); RED CELL DISTRIBUTION WIDTH 12.9 % (11.5-14.5); WHITE BLOOD COUNT 7.5 K/mm3 (4.8-10.8)
[2020-11-04 17:58] LABS: ALBUMIN 3.9 g/dL (3.5-5.0); POTASSIUM 4.1 mmol/L (3.5-5.1)
[2020-11-04 17:59] LABS: CALCIUM 9.3 mg/dL (8.3-10.5)
[2020-11-04 18:00] LABS: TOTAL PROTEIN 6.9 g/dL (6.4-8.3)
[2020-11-04 18:02] LABS: TOTAL BILIRUBIN 0.5 mg/dL (0.2-1.2)
[2020-11-04 18:04] LABS: URINE APPEARANCE HAZY; URINE BILIRUBIN NEGATIVE (NEGATIVE); URINE COLOR YELLOW; URINE KETONE NEGATIVE (NEGATIVE); URINE PROTEIN(semi-quant) NEGATIVE (NEGATIVE); URINE UROBILINOGEN NORMAL (NORMAL)
[2020-11-04 18:05] LABS: URINE BLOOD NEGATIVE (NEGATIVE); URINE LEUKOCYTE ESTERASE NEGATIVE (NEGATIVE); URINE MUCUS PRESENT (NOT PRESENT); URINE NITRATE NEGATIVE (NEGATIVE)
[2020-11-04 18:38] LABS: LIPASE 16 U/L (8-78)
[2020-11-04 19:06] VITALS: BP 114/90
== END 2020-11-04 19:06 | disposition home or self-care (01) ==
LOC: ED 17:14
PROVIDERS: Physician Assistant
DX: K59.00 Constipation, unspecified (principal); E11.65 Type 2 diabetes mellitus with hyperglycemia; K21.9 Gastro-esophageal reflux disease without esophagitis; I10 Essential (primary) hypertension; F41.9 Anxiety disorder, unspecified; F32.9 Major depressive disorder, single episode, unspecified; Z79.4 Long term (current) use of insulin; Z79.899 Other long term (current) drug therapy

== ENCOUNTER 2020-11-05 09:27 | Observation (INO) | payer MEDICARE, MEDICAID ==
[~2020-11-05] VITALS: Ht 167.6 cm; Wt 122.7 kg
[~2020-11-05 09:27] MED LIST changes: +TRULICITY3 MG/0.5 M SQ; +VIIBRYD10 MG PO
[2020-11-05 10:22] LABS: BASO # 0.04 (0.02-0.10); EOS # 0.14 (0.04-0.40); EOS % 1.2 % (1.0-5.0); HEMATOCRIT 38.3 % (37.0-47.0); HEMOGLOBIN 12.8 g/dL (12.5-16.0); LYMPH# 1.59 (1.50-4.00); MEAN CELL VOLUME 86 fl (78-100); MEAN CORPUSCULAR HEMOGLOBIN 29 pg (27-31); MEAN CORPUSCULAR HGB CONC 33 g/dL (33-37); MEAN PLATELET VOLUME 9.1 fl (7.4-10.4); MONO # 0.48 (0.20-0.80); NEU # 9.08 (1.40-6.50); PLATELET COUNT 276 K/mm3 (130-400); RED BLOOD COUNT 4.45 M/mm3 (4.10-5.30); RED CELL DISTRIBUTION WIDTH 12.7 % (11.5-14.5); WHITE BLOOD COUNT 11.3 K/mm3 (4.8-10.8)
[2020-11-05 10:34] LABS: ALBUMIN 3.9 g/dL (3.5-5.0); POTASSIUM 4.8 mmol/L (3.5-5.1)
[2020-11-05 10:34] LABS: URINE APPEARANCE HAZY; URINE BILIRUBIN NEGATIVE (NEGATIVE); URINE BLOOD NEGATIVE (NEGATIVE); URINE COLOR YELLOW; URINE KETONE TRACE (NEGATIVE); URINE LEUKOCYTE ESTERASE NEGATIVE (NEGATIVE); URINE MUCUS PRESENT (NOT PRESENT); URINE NITRATE NEGATIVE (NEGATIVE); URINE PROTEIN(semi-quant) NEGATIVE (NEGATIVE); URINE UROBILINOGEN NORMAL (NORMAL)
[2020-11-05 10:36] LABS: CALCIUM 9.3 mg/dL (8.3-10.5)
[2020-11-05 10:39] LABS: TOTAL BILIRUBIN 0.7 mg/dL (0.2-1.2)
[2020-11-05 11:06] LABS: LIPASE 22 U/L (8-78)
[2020-11-05 13:27] VITALS: BP 101/69
[2020-11-05 17:13] VITALS: BP 108/76
[2020-11-05 20:09] LABS: POTASSIUM 4.3 mmol/L (3.5-5.1)
[2020-11-05 20:11] LABS: CALCIUM 8.8 mg/dL (8.3-10.5)
[2020-11-05 22:10] VITALS: BP 96/64
[2020-11-06 02:09] VITALS: BP 101/65
[2020-11-06 06:03] VITALS: BP 98/62
[2020-11-06 09:11] LABS: BASO # 0.04 (0.02-0.10); EOS # 0.24 (0.04-0.40); EOS % 4.6 % (1.0-5.0); HEMATOCRIT 37.1 % (37.0-47.0); HEMOGLOBIN 12.1 g/dL (12.5-16.0); LYMPH# 2.09 (1.50-4.00); MEAN CELL VOLUME 88 fl (78-100); MEAN CORPUSCULAR HEMOGLOBIN 29 pg (27-31); MEAN CORPUSCULAR HGB CONC 33 g/dL (33-37); MONO # 0.26 (0.20-0.80); NEU # 2.55 (1.40-6.50); RED BLOOD COUNT 4.24 M/mm3 (4.10-5.30); RED CELL DISTRIBUTION WIDTH 12.9 % (11.5-14.5); WHITE BLOOD COUNT 5.2 K/mm3 (4.8-10.8)
[2020-11-06 09:15] LABS: POTASSIUM 4.1 mmol/L (3.5-5.1)
[2020-11-06 09:16] LABS: CALCIUM 8.7 mg/dL (8.3-10.5)
[2020-11-06 10:20] VITALS: BP 105/72
[2020-11-06] MEDS ORDERED: INSULIN HUMA100 U/ML SQ (11:45)
== END 2020-11-06 12:08 | disposition home or self-care (01) ==
LOC: ED 09:27 → MED/SURG 13:05
PROVIDERS: ADMIT Nurse Practitioner Family
DX: E11.65 Type 2 diabetes mellitus with hyperglycemia (principal); E87.1 Hypo-osmolality and hyponatremia; R11.2 Nausea with vomiting, unspecified; R10.9 Unspecified abdominal pain; E86.0 Dehydration; K21.9 Gastro-esophageal reflux disease without esophagitis; I12.9 Hypertensive chronic kidney disease with stage 1 through stage 4 chronic kidney disease, or unspecified chronic kidney disease; N18.9 Chronic kidney disease, unspecified; N17.9 Acute kidney failure, unspecified; F43.10 Post-traumatic stress disorder, unspecified; F41.9 Anxiety disorder, unspecified; F32.9 Major depressive disorder, single episode, unspecified; F44.81 Dissociative identity disorder; Z79.84 Long term (current) use of oral hypoglycemic drugs; Z90.89 Acquired absence of other organs; Z90.49 Acquired absence of other specified parts of digestive tract; Z79.890 Hormone replacement therapy; Z79.899 Other long term (current) drug therapy
CPT/HCPCS: G0378; J1815; J7030; Q0177; Q9967

== ENCOUNTER 2020-11-15 21:30 | Emergency (ER) | payer MEDICARE, MEDICAID ==
[~2020-11-15] VITALS: Ht 167.6 cm; Wt 122.2 kg
[~2020-11-15 21:30] MED LIST changes: +INSULIN HUMA100 U/ML SQ
[2020-11-15] MEDS ORDERED: RESTORIL15 MG PO (21:53)
[2020-11-15] MEDS ORDERED: MORGIDOX 1X100100 MG PO (23:01)
[2020-11-15 23:23] VITALS: BP 125/75
== END 2020-11-15 23:23 | disposition home or self-care (01) ==
LOC: ED 21:30
DX: J40 Bronchitis, not specified as acute or chronic (principal); E11.9 Type 2 diabetes mellitus without complications; K21.9 Gastro-esophageal reflux disease without esophagitis; I10 Essential (primary) hypertension; Z20.822 Contact with and (suspected) exposure to COVID-19; Z79.4 Long term (current) use of insulin; Z79.899 Other long term (current) drug therapy

== ENCOUNTER 2020-11-19 23:45 | Emergency (ER) | payer MEDICARE, MEDICAID ==
[~2020-11-19] VITALS: Ht 167.6 cm; Wt 121.3 kg
[~2020-11-19 23:45] MED LIST changes: +MORGIDOX 1X100100 MG PO; +RESTORIL15 MG PO
[2020-11-20] MEDS ORDERED: TESSALON PERLE100 M1 PO (00:17)
[2020-11-20] MEDS ORDERED: FLOVENT HFA12 GM IH (00:17)
[2020-11-20 01:02] LABS: BASO # 0.04 K/mm3 (0.02-0.10); EOS # 0.28 K/mm3 (0.04-0.40); EOS % 4.1 % (1.0-5.0); HEMATOCRIT 35.9 % (37.0-47.0); HEMOGLOBIN 11.8 g/dL (12.5-16.0); MEAN CELL VOLUME 88 fl (78-100); MEAN CORPUSCULAR HEMOGLOBIN 29 pg (27-31); MEAN CORPUSCULAR HGB CONC 33 g/dL (33-37); MEAN PLATELET VOLUME 8.8 fl (7.4-10.4); MONO # 0.41 K/mm3 (0.20-0.80); NEU # 3.07 K/mm3 (1.40-6.50); PLATELET COUNT 270 K/mm3 (130-400); RED CELL DISTRIBUTION WIDTH 12.6 % (11.5-14.5); WHITE BLOOD COUNT 6.8 K/mm3 (4.8-10.8)
[2020-11-20 01:13] LABS: ALBUMIN 3.8 g/dL (3.5-5.0); SODIUM 135 mmol/L (136-145)
[2020-11-20 01:15] LABS: CALCIUM 9.4 mg/dL (8.3-10.5)
[2020-11-20 01:16] LABS: GLUCOSE 221 mg/dL (65-105); TOTAL PROTEIN 6.1 g/dL (6.4-8.3)
[2020-11-20 01:17] LABS: CARBON DIOXIDE 25 mmol/L (22-29)
[2020-11-20 01:18] LABS: TOTAL BILIRUBIN 0.5 mg/dL (0.2-1.2)
[2020-11-20 01:21] LABS: AST-SGOT 12 U/L (5-34)
[2020-11-20 01:23] LABS: ALT/SGPT 9 U/L (0-55)
[2020-11-20 01:24] LABS: ACETAMINOPHEN < 1 ug/mL; ALCOHOL IN-HOUSE < 10 mg/dL (<10)
[2020-11-20 01:31] LABS: URINE COLOR YELLOW
[2020-11-20 01:35] LABS: URINE APPEARANCE HAZY; URINE BILIRUBIN NEGATIVE (NEGATIVE); URINE KETONE NEGATIVE (NEGATIVE); URINE PROTEIN(semi-quant) TRACE mg/dL (NEGATIVE)
[2020-11-20 01:36] LABS: URINE BLOOD NEGATIVE (NEGATIVE); URINE LEUKOCYTE ESTERASE TRACE (NEGATIVE); URINE MUCUS PRESENT (NOT PRESENT); URINE NITRATE NEGATIVE (NEGATIVE); URINE UROBILINOGEN NORMAL (NORMAL)
[2020-11-20 09:55] VITALS: BP 142/68
== END 2020-11-20 09:51 ==
LOC: ED 23:45
PROVIDERS: Internal Medicine; Nurse Practitioner Family
DX: F32.A Depression, unspecified (principal); E11.9 Type 2 diabetes mellitus without complications; F41.9 Anxiety disorder, unspecified; F43.10 Post-traumatic stress disorder, unspecified; K21.9 Gastro-esophageal reflux disease without esophagitis; I10 Essential (primary) hypertension; Z20.822 Contact with and (suspected) exposure to COVID-19; Z79.4 Long term (current) use of insulin; Z79.899 Other long term (current) drug therapy

== ENCOUNTER 2020-11-27 21:02 | Emergency (ER) | payer MEDICARE, MEDICAID ==
[~2020-11-27 21:02] MED LIST changes: +FLOVENT HFA12 GM IH
[2020-11-27] MEDS ORDERED: VENLAFAXINE HY150 MG PO (21:37)
[2020-11-27] MEDS ORDERED: DIVALPROEX SOD500 M2 PO (21:37)
[2020-11-27] MEDS ORDERED: TEMAZEPAM PO (21:37)
[2020-11-27 22:17] LABS: BASO # 0.06 K/mm3 (0.02-0.10); EOS % 2.2 % (1.0-5.0); HEMATOCRIT 40.4 % (37.0-47.0); HEMOGLOBIN 13.4 g/dL (12.5-16.0); LYMPH# 3.35 K/mm3 (1.50-4.00); MEAN CELL VOLUME 88 fl (78-100); MEAN CORPUSCULAR HEMOGLOBIN 29 pg (27-31); MEAN CORPUSCULAR HGB CONC 33 g/dL (33-37); MEAN PLATELET VOLUME 8.8 fl (7.4-10.4); MONO # 0.63 K/mm3 (0.20-0.80); NEU # 4.79 K/mm3 (1.40-6.50); PLATELET COUNT 302 K/mm3 (130-400); RED CELL DISTRIBUTION WIDTH 12.5 % (11.5-14.5)
[2020-11-27 22:27] LABS: POTASSIUM 4.2 mmol/L (3.5-5.1)
[2020-11-27 22:29] LABS: CALCIUM 9.4 mg/dL (8.3-10.5)
[2020-11-27 22:32] LABS: URINE APPEARANCE HAZY; URINE COLOR YELLOW; URINE KETONE 2+ (NEGATIVE); URINE PROTEIN(semi-quant) NEGATIVE (NEGATIVE)
[2020-11-27 22:33] LABS: URINE BILIRUBIN NEGATIVE (NEGATIVE); URINE BLOOD NEGATIVE (NEGATIVE); URINE LEUKOCYTE ESTERASE NEGATIVE (NEGATIVE); URINE NITRATE NEGATIVE (NEGATIVE); URINE UROBILINOGEN NORMAL (NORMAL)
[2020-11-28 02:28] VITALS: BP 111/86
== END 2020-11-28 03:32 | disposition home or self-care (01) ==
LOC: ED 21:02
PROVIDERS: Family Medicine
DX: G90.9 Disorder of the autonomic nervous system, unspecified (principal); E11.21 Type 2 diabetes mellitus with diabetic nephropathy; E11.43 Type 2 diabetes mellitus with diabetic autonomic (poly)neuropathy; K31.84 Gastroparesis; R55 Syncope and collapse; J45.909 Unspecified asthma, uncomplicated; E05.90 Thyrotoxicosis, unspecified without thyrotoxic crisis or storm; Z79.4 Long term (current) use of insulin; Z79.890 Hormone replacement therapy; Z79.899 Other long term (current) drug therapy
CPT/HCPCS: J1815; J7030

== ENCOUNTER 2020-12-04 21:52 | Emergency (ER) | payer MEDICARE, MEDICAID ==
[~2020-12-04] VITALS: Ht 167.6 cm; Wt 121.3 kg
[~2020-12-04 21:52] MED LIST changes: +DIVALPROEX SOD500 M2 PO; +VENLAFAXINE HY150 MG PO
[2020-12-04 23:13] LABS: BASO # 0.03 K/mm3 (0.02-0.10); EOS # 0.26 K/mm3 (0.04-0.40); EOS % 3.4 % (1.0-5.0); HEMATOCRIT 36.3 % (37.0-47.0); HEMOGLOBIN 12.2 g/dL (12.5-16.0); LYMPH# 2.05 K/mm3 (1.50-4.00); MEAN CELL VOLUME 88 fl (78-100); MEAN CORPUSCULAR HEMOGLOBIN 30 pg (27-31); MEAN CORPUSCULAR HGB CONC 34 g/dL (33-37); MEAN PLATELET VOLUME 9.3 fl (7.4-10.4); MONO # 0.44 K/mm3 (0.20-0.80); PLATELET COUNT 254 K/mm3 (130-400); RED BLOOD COUNT 4.14 M/mm3 (4.10-5.30); RED CELL DISTRIBUTION WIDTH 12.1 % (11.5-14.5); WHITE BLOOD COUNT 7.6 K/mm3 (4.8-10.8)
[2020-12-04 23:17] LABS: ALBUMIN 3.9 g/dL (3.5-5.0); POTASSIUM 4.1 mmol/L (3.5-5.1)
[2020-12-04 23:18] LABS: CALCIUM 9.1 mg/dL (8.3-10.5)
[2020-12-04 23:19] LABS: TOTAL PROTEIN 6.8 g/dL (6.4-8.3)
[2020-12-04 23:21] LABS: TOTAL BILIRUBIN 0.5 mg/dL (0.2-1.2)
[2020-12-04 23:32] LABS: URINE APPEARANCE HAZY; URINE BILIRUBIN NEGATIVE (NEGATIVE); URINE BLOOD TRACE (NEGATIVE); URINE COLOR YELLOW; URINE KETONE 2+ (NEGATIVE); URINE LEUKOCYTE ESTERASE NEGATIVE (NEGATIVE); URINE NITRATE NEGATIVE (NEGATIVE); URINE PROTEIN(semi-quant) NEGATIVE (NEGATIVE); URINE UROBILINOGEN NORMAL (NORMAL)
[2020-12-04 23:33] LABS: URINE MUCUS PRESENT (NOT PRESENT)
[2020-12-05 02:52] LABS: URINE APPEARANCE HAZY; URINE BILIRUBIN NEGATIVE (NEGATIVE); URINE BLOOD NEGATIVE (NEGATIVE); URINE COLOR LT YELLOW; URINE GLUCOSE NEGATIVE (NEGATIVE); URINE KETONE NEGATIVE (NEGATIVE); URINE LEUKOCYTE ESTERASE NEGATIVE (NEGATIVE); URINE NITRATE NEGATIVE (NEGATIVE); URINE PROTEIN(semi-quant) TRACE mg/dL (NEGATIVE); URINE UROBILINOGEN NORMAL (NORMAL)
[2020-12-05 03:20] VITALS: BP 129/80
== END 2020-12-05 03:20 | disposition home or self-care (01) ==
LOC: ED 21:52
PROVIDERS: Family Medicine
DX: E11.43 Type 2 diabetes mellitus with diabetic autonomic (poly)neuropathy (principal); K31.84 Gastroparesis; E11.10 Type 2 diabetes mellitus with ketoacidosis without coma; R55 Syncope and collapse; I10 Essential (primary) hypertension; E05.90 Thyrotoxicosis, unspecified without thyrotoxic crisis or storm; J45.909 Unspecified asthma, uncomplicated; E66.01 Morbid (severe) obesity due to excess calories; Z68.41 Body mass index [BMI] 40.0-44.9, adult; Z79.890 Hormone replacement therapy; Z79.4 Long term (current) use of insulin; Z79.899 Other long term (current) drug therapy
CPT/HCPCS: J1815; J2550

== ENCOUNTER 2020-12-17 20:27 | Emergency (ER) | payer MEDICARE, MEDICAID ==
[~2020-12-17] VITALS: Ht 167.6 cm; Wt 118.1 kg
[2020-12-17 22:48] VITALS: BP 120/72
== END 2020-12-17 22:48 | disposition home or self-care (01) ==
LOC: ED 20:27
DX: S20.214A Contusion of middle front wall of thorax, initial encounter (principal); E11.9 Type 2 diabetes mellitus without complications; K21.9 Gastro-esophageal reflux disease without esophagitis; I10 Essential (primary) hypertension; F41.9 Anxiety disorder, unspecified; F32.A Depression, unspecified; Z79.899 Other long term (current) drug therapy; Z79.4 Long term (current) use of insulin; W19.XXXA Unspecified fall, initial encounter; W22.8XXA Striking against or struck by other objects, initial encounter
CPT/HCPCS: J1885

== ENCOUNTER 2020-12-20 16:55 | Emergency (ER) | payer MEDICARE, MEDICAID ==
[2020-12-20 18:31] VITALS: BP 128/75
[2020-12-21] MEDS ORDERED: HYDROXYZINE HCL25 M1 PO (07:26)
[2020-12-21] MEDS ORDERED: VENLAFAXINE HCL75 M3 PO (07:27)
== END 2020-12-20 18:31 | disposition home or self-care (01) ==
LOC: ED 16:55
DX: T39.1X5A Adverse effect of 4-Aminophenol derivatives, initial encounter (principal); T50.995A Adverse effect of other drugs, medicaments and biological substances, initial encounter; E11.43 Type 2 diabetes mellitus with diabetic autonomic (poly)neuropathy; K31.84 Gastroparesis; J45.909 Unspecified asthma, uncomplicated; E05.90 Thyrotoxicosis, unspecified without thyrotoxic crisis or storm; I10 Essential (primary) hypertension; E78.5 Hyperlipidemia, unspecified; F31.9 Bipolar disorder, unspecified; F20.9 Schizophrenia, unspecified; Z79.4 Long term (current) use of insulin; Z79.899 Other long term (current) drug therapy

== ENCOUNTER 2020-12-21 07:08 | Emergency (ER) | payer MEDICARE, MEDICAID ==
[~2020-12-21] VITALS: Ht 167.6 cm; Wt 122.1 kg
[2020-12-21] MEDS ORDERED: HYDROXYZINE HCL25 M1 PO (07:26)
[2020-12-21] MEDS ORDERED: VENLAFAXINE HCL75 M3 PO (07:27)
[2020-12-21 07:57] LABS: BASO # 0.04 K/mm3 (0.02-0.10); EOS # 0.24 K/mm3 (0.04-0.40); EOS % 3.4 % (1.0-5.0); HEMATOCRIT 35.1 % (37.0-47.0); HEMOGLOBIN 11.6 g/dL (12.5-16.0); LYMPH# 2.49 K/mm3 (1.50-4.00); MEAN CELL VOLUME 89 fl (78-100); MEAN CORPUSCULAR HEMOGLOBIN 29 pg (27-31); MEAN CORPUSCULAR HGB CONC 33 g/dL (33-37); MEAN PLATELET VOLUME 8.8 fl (7.4-10.4); MONO # 0.52 K/mm3 (0.20-0.80); NEU # 3.75 K/mm3 (1.40-6.50); PLATELET COUNT 282 K/mm3 (130-400); RED BLOOD COUNT 3.95 M/mm3 (4.10-5.30); RED CELL DISTRIBUTION WIDTH 12.6 % (11.5-14.5); WHITE BLOOD COUNT 7.1 K/mm3 (4.8-10.8)
[2020-12-21 08:04] LABS: ALBUMIN 3.8 g/dL (3.5-5.0); POTASSIUM 4.2 mmol/L (3.5-5.1)
[2020-12-21 08:06] LABS: URINE APPEARANCE CLEAR; URINE COLOR YELLOW; URINE PROTEIN(semi-quant) TRACE mg/dL (NEGATIVE)
[2020-12-21 08:06] LABS: CALCIUM 8.8 mg/dL (8.3-10.5)
[2020-12-21 08:07] LABS: URINE BILIRUBIN NEGATIVE (NEGATIVE); URINE BLOOD NEGATIVE (NEGATIVE); URINE KETONE NEGATIVE (NEGATIVE); URINE LEUKOCYTE ESTERASE NEGATIVE (NEGATIVE); URINE NITRATE NEGATIVE (NEGATIVE); URINE UROBILINOGEN NORMAL (NORMAL); URINE WBC 0-1 /hpf (0-3)
[2020-12-21 08:07] LABS: TOTAL PROTEIN 6.5 g/dL (6.4-8.3)
[2020-12-21 08:09] LABS: TOTAL BILIRUBIN 0.4 mg/dL (0.2-1.2)
[2020-12-21 09:15] VITALS: BP 143/92
== END 2020-12-21 09:15 | disposition home or self-care (01) ==
LOC: ED 07:08
PROVIDERS: Nurse Practitioner
DX: S90.111A Contusion of right great toe without damage to nail, initial encounter (principal); E11.9 Type 2 diabetes mellitus without complications; K21.9 Gastro-esophageal reflux disease without esophagitis; I10 Essential (primary) hypertension; F41.9 Anxiety disorder, unspecified; F32.A Depression, unspecified; Z79.4 Long term (current) use of insulin; W22.8XXA Striking against or struck by other objects, initial encounter; Y93.01 Activity, walking, marching and hiking

== ENCOUNTER 2020-12-27 17:16 | Emergency (ER) | payer MEDICARE, MEDICAID ==
[~2020-12-27] VITALS: Ht 167.6 cm; Wt 121.3 kg
[~2020-12-27 17:16] MED LIST changes: +VENLAFAXINE HCL75 M3 PO
[2020-12-27] MEDS ORDERED: DIVALPROEX SOD250 M1 PO (17:35)
[2020-12-27] MEDS ORDERED: ATORVASTATIN CA10 MG PO (17:35)
[2020-12-27 19:19] LABS: EOS # 0.36 K/mm3 (0.04-0.40); EOS % 4.3 % (1.0-5.0); HEMATOCRIT 36.8 % (37.0-47.0); HEMOGLOBIN 12.1 g/dL (12.5-16.0); LYMPH# 3.71 K/mm3 (1.50-4.00); MEAN CELL VOLUME 88 fl (78-100); MEAN CORPUSCULAR HEMOGLOBIN 29 pg (27-31); MEAN CORPUSCULAR HGB CONC 33 g/dL (33-37); MEAN PLATELET VOLUME 8.7 fl (7.4-10.4); MONO # 0.55 K/mm3 (0.20-0.80); NEU # 3.56 K/mm3 (1.40-6.50); PLATELET COUNT 299 K/mm3 (130-400); RED BLOOD COUNT 4.19 M/mm3 (4.10-5.30); RED CELL DISTRIBUTION WIDTH 12.6 % (11.5-14.5); WHITE BLOOD COUNT 8.3 K/mm3 (4.8-10.8)
[2020-12-27 20:07] LABS: D-DIMER 0.2 mg/L FEU (0.15-0.50)
[2020-12-27 21:10] VITALS: BP 130/91
== END 2020-12-27 21:10 | disposition home or self-care (01) ==
LOC: ED 17:16
PROVIDERS: Family Medicine
DX: S30.0XXA Contusion of lower back and pelvis, initial encounter (principal); M54.10 Radiculopathy, site unspecified; I10 Essential (primary) hypertension; E11.43 Type 2 diabetes mellitus with diabetic autonomic (poly)neuropathy; K31.84 Gastroparesis; J45.909 Unspecified asthma, uncomplicated; E66.01 Morbid (severe) obesity due to excess calories; Z79.4 Long term (current) use of insulin; Z79.84 Long term (current) use of oral hypoglycemic drugs; Z79.899 Other long term (current) drug therapy; W18.30XA Fall on same level, unspecified, initial encounter; Y92.009 Unspecified place in unspecified non-institutional (private) residence as the place of occurrence of the external cause

== ENCOUNTER 2021-01-10 08:03 | Emergency (ER) | payer MEDICARE, MEDICAID ==
[~2021-01-10] VITALS: Ht 167.6 cm; Wt 125.5 kg
[~2021-01-10 08:03] MED LIST changes: +ATORVASTATIN CA10 MG PO; +DIVALPROEX SOD250 M1 PO
[2021-01-10 09:28] LABS: BASO # 0.05 K/mm3 (0.02-0.10); HEMATOCRIT 33.8 % (37.0-47.0); HEMOGLOBIN 11.6 g/dL (12.5-16.0); LYMPH# 2.25 K/mm3 (1.50-4.00); MEAN CELL VOLUME 85 fl (78-100); MEAN CORPUSCULAR HEMOGLOBIN 29 pg (27-31); MEAN CORPUSCULAR HGB CONC 34 g/dL (33-37); MONO # 0.46 K/mm3 (0.20-0.80); NEU # 3.62 K/mm3 (1.40-6.50); PLATELET COUNT 233 K/mm3 (130-400); RED BLOOD COUNT 3.96 M/mm3 (4.10-5.30); RED CELL DISTRIBUTION WIDTH 12.3 % (11.5-14.5); WHITE BLOOD COUNT 6.6 K/mm3 (4.8-10.8)
[2021-01-10 09:38] LABS: POTASSIUM 4.5 mmol/L (3.5-5.1)
[2021-01-10 09:40] LABS: CALCIUM 8.3 mg/dL (8.3-10.5)
[2021-01-10 09:50] LABS: URINE APPEARANCE CLEAR; URINE BILIRUBIN NEGATIVE (NEGATIVE); URINE BLOOD NEGATIVE (NEGATIVE); URINE COLOR YELLOW; URINE KETONE 1+ (NEGATIVE); URINE LEUKOCYTE ESTERASE NEGATIVE (NEGATIVE); URINE NITRATE NEGATIVE (NEGATIVE); URINE PROTEIN(semi-quant) NEGATIVE (NEGATIVE); URINE UROBILINOGEN NORMAL (NORMAL)
[2021-01-10 14:40] VITALS: BP 106/74
== END 2021-01-10 14:44 | disposition home or self-care (01) ==
LOC: ED 08:03
PROVIDERS: Family Medicine
DX: S30.0XXA Contusion of lower back and pelvis, initial encounter (principal); M54.10 Radiculopathy, site unspecified; I10 Essential (primary) hypertension; E78.5 Hyperlipidemia, unspecified; E11.65 Type 2 diabetes mellitus with hyperglycemia; Z20.822 Contact with and (suspected) exposure to COVID-19; Z79.4 Long term (current) use of insulin; X58.XXXA Exposure to other specified factors, initial encounter
CPT/HCPCS: J1815; J7030

== ENCOUNTER 2021-01-23 08:05 | Emergency (ER) | payer MEDICARE, MEDICAID ==
[~2021-01-23] VITALS: Ht 167.6 cm; Wt 119.7 kg
[~2021-01-23 08:05] MED LIST changes: +RESTORIL30 M1 PO
[2021-01-23] MEDS ORDERED: FLOVENT HFA12 GM IH (08:43)
[2021-01-23] MEDS ORDERED: TOPAMAX50 M1 PO (08:43)
[2021-01-23] MEDS ORDERED: OMEPRAZOLE40 MG PO (08:45)
[2021-01-23 09:58] LABS: POTASSIUM 4.5 mmol/L (3.5-5.1)
[2021-01-23 09:59] LABS: CALCIUM 8.7 mg/dL (8.3-10.5)
[2021-01-23 10:09] LABS: URINE APPEARANCE CLEAR; URINE BILIRUBIN NEGATIVE (NEGATIVE); URINE BLOOD NEGATIVE (NEGATIVE); URINE COLOR STRAW; URINE KETONE 1+ (NEGATIVE); URINE LEUKOCYTE ESTERASE NEGATIVE (NEGATIVE); URINE NITRATE NEGATIVE (NEGATIVE); URINE PROTEIN(semi-quant) NEGATIVE (NEGATIVE); URINE UROBILINOGEN NORMAL (NORMAL); URINE WBC 0-1 /hpf (0-3)
[2021-01-23 15:26] LABS: CALCIUM 9.1 mg/dL (8.3-10.5)
[2021-01-23 17:27] VITALS: BP 141/86
== END 2021-01-23 17:27 | disposition home or self-care (01) ==
LOC: ED 08:05
PROVIDERS: Family Medicine
DX: E11.65 Type 2 diabetes mellitus with hyperglycemia (principal); F31.9 Bipolar disorder, unspecified; Z79.4 Long term (current) use of insulin; Z79.84 Long term (current) use of oral hypoglycemic drugs; Z79.899 Other long term (current) drug therapy
CPT/HCPCS: J1815

== ENCOUNTER 2021-01-31 09:43 | Emergency (ER) | payer MEDICARE, MEDICAID ==
[~2021-01-31] VITALS: Ht 167.6 cm; Wt 118.0 kg
[~2021-01-31 09:43] MED LIST changes: +OMEPRAZOLE40 MG PO; +TOPAMAX50 M1 PO
[2021-01-31 10:47] LABS: BASO # 0.05 K/mm3 (0.02-0.10); EOS # 0.13 K/mm3 (0.04-0.40); EOS % 1.1 % (1.0-5.0); HEMATOCRIT 38.2 % (37.0-47.0); HEMOGLOBIN 13.1 g/dL (12.5-16.0); LYMPH# 1.56 K/mm3 (1.50-4.00); MEAN CELL VOLUME 86 fl (78-100); MEAN CORPUSCULAR HEMOGLOBIN 30 pg (27-31); MEAN CORPUSCULAR HGB CONC 34 g/dL (33-37); MEAN PLATELET VOLUME 8.7 fl (7.4-10.4); MONO # 0.47 K/mm3 (0.20-0.80); NEU # 9.56 K/mm3 (1.40-6.50); PLATELET COUNT 294 K/mm3 (130-400); RED BLOOD COUNT 4.42 M/mm3 (4.10-5.30); RED CELL DISTRIBUTION WIDTH 12.3 % (11.5-14.5); WHITE BLOOD COUNT 11.8 K/mm3 (4.8-10.8)
[2021-01-31 11:03] LABS: URINE APPEARANCE CLEAR; URINE BILIRUBIN NEGATIVE (NEGATIVE); URINE BLOOD TRACE (NEGATIVE); URINE COLOR YELLOW; URINE KETONE 2+ (NEGATIVE); URINE LEUKOCYTE ESTERASE NEGATIVE (NEGATIVE); URINE MUCUS PRESENT (NOT PRESENT); URINE NITRATE NEGATIVE (NEGATIVE); URINE PROTEIN(semi-quant) NEGATIVE (NEGATIVE); URINE UROBILINOGEN NORMAL (NORMAL); URINE WBC 0-1 /hpf (0-3)
[2021-01-31 11:06] LABS: ALBUMIN 4.2 g/dL (3.5-5.0)
[2021-01-31 11:07] LABS: POTASSIUM 4.4 mmol/L (3.5-5.1)
[2021-01-31 11:08] LABS: CALCIUM 9.6 mg/dL (8.3-10.5)
[2021-01-31 11:09] LABS: TOTAL PROTEIN 7.3 g/dL (6.4-8.3)
[2021-01-31 11:11] LABS: TOTAL BILIRUBIN 0.6 mg/dL (0.2-1.2)
[2021-01-31] MEDS ORDERED: CIPROFLOX-DEXA7.5 ML OT (12:18)
[2021-01-31] MEDS ORDERED: LEVOTHYROXINE175 MCG PO (12:19)
[2021-01-31 14:44] VITALS: BP 127/84
== END 2021-01-31 14:45 | disposition home or self-care (01) ==
LOC: ED 09:43
PROVIDERS: Nurse Practitioner Family
DX: E11.65 Type 2 diabetes mellitus with hyperglycemia (principal); Z20.822 Contact with and (suspected) exposure to COVID-19
CPT/HCPCS: J2405; J7030; J7040

== ENCOUNTER 2021-02-14 08:55 | Emergency (ER) | payer MEDICARE, MEDICAID ==
[~2021-02-14] VITALS: Ht 167.6 cm; Wt 118.0 kg
[~2021-02-14 08:55] MED LIST changes: +CIPROFLOX-DEXA7.5 ML OT
[2021-02-14 09:44] LABS: BASO # 0.06 K/mm3 (0.02-0.10); EOS # 0.34 K/mm3 (0.04-0.40); EOS % 3.4 % (1.0-5.0); HEMATOCRIT 37.6 % (37.0-47.0); HEMOGLOBIN 12.4 g/dL (12.5-16.0); LYMPH# 3.69 K/mm3 (1.50-4.00); MEAN CELL VOLUME 89 fl (78-100); MEAN CORPUSCULAR HEMOGLOBIN 30 pg (27-31); MEAN CORPUSCULAR HGB CONC 33 g/dL (33-37); MEAN PLATELET VOLUME 8.6 fl (7.4-10.4); MONO # 0.53 K/mm3 (0.20-0.80); PLATELET COUNT 307 K/mm3 (130-400); RED BLOOD COUNT 4.21 M/mm3 (4.10-5.30); RED CELL DISTRIBUTION WIDTH 12.7 % (11.5-14.5); WHITE BLOOD COUNT 9.9 K/mm3 (4.8-10.8)
[2021-02-14 09:56] LABS: ALBUMIN 4.1 g/dL (3.5-5.0); POTASSIUM 4.6 mmol/L (3.5-5.1)
[2021-02-14 09:56] LABS: URINE APPEARANCE CLEAR; URINE BILIRUBIN NEGATIVE (NEGATIVE); URINE BLOOD NEGATIVE (NEGATIVE); URINE COLOR YELLOW; URINE KETONE NEGATIVE (NEGATIVE); URINE LEUKOCYTE ESTERASE NEGATIVE (NEGATIVE); URINE NITRATE NEGATIVE (NEGATIVE); URINE PROTEIN(semi-quant) TRACE (NEGATIVE); URINE UROBILINOGEN NORMAL (NORMAL); URINE WBC 0-1 /hpf (0-3)
[2021-02-14 09:57] LABS: URINE MUCUS PRESENT (NOT PRESENT)
[2021-02-14 09:58] LABS: CALCIUM 9.1 mg/dL (8.3-10.5)
[2021-02-14 09:59] LABS: TOTAL PROTEIN 7.2 g/dL (6.4-8.3)
[2021-02-14 10:01] LABS: TOTAL BILIRUBIN 0.4 mg/dL (0.2-1.2)
[2021-02-15 20:08] VITALS: BP 118/75
== END 2021-02-15 20:08 ==
LOC: ED 08:55
PROVIDERS: Family Medicine
DX: R44.0 Auditory hallucinations (principal); E11.65 Type 2 diabetes mellitus with hyperglycemia; R45.851 Suicidal ideations; R35.0 Frequency of micturition; F31.9 Bipolar disorder, unspecified; E11.43 Type 2 diabetes mellitus with diabetic autonomic (poly)neuropathy; K31.84 Gastroparesis; E05.90 Thyrotoxicosis, unspecified without thyrotoxic crisis or storm; Z87.891 Personal history of nicotine dependence; Z79.4 Long term (current) use of insulin; Z79.899 Other long term (current) drug therapy; Z79.890 Hormone replacement therapy; Z20.822 Contact with and (suspected) exposure to COVID-19
CPT/HCPCS: J1815; Q0177

== ENCOUNTER 2021-03-09 22:44 | Emergency (ER) | payer MEDICARE, MEDICAID ==
[~2021-03-09] VITALS: Wt 117.8 kg
[2021-03-09] MEDS ORDERED: PREDNISONE20 M1 PO (23:12)
[2021-03-09] MEDS ORDERED: NALTREXONE HYDR50 MG PO (23:13)
[2021-03-09] MEDS ORDERED: OLANZAPINE10 M3 PO (23:13)
[2021-03-09] MEDS ORDERED: CYPROHEPTADINE H4 M1 PO (23:13)
[2021-03-09] MEDS ORDERED: FOLTX 2 MG PO (23:16)
[2021-03-09 23:24] LABS: BASO # 0.06 K/mm3 (0.02-0.10); EOS # 0.51 K/mm3 (0.04-0.40); EOS % 4.7 % (1.0-5.0); HEMATOCRIT 35.8 % (37.0-47.0); LYMPH# 4.33 K/mm3 (1.50-4.00); MEAN CELL VOLUME 89 fl (78-100); MEAN CORPUSCULAR HEMOGLOBIN 30 pg (27-31); MEAN CORPUSCULAR HGB CONC 34 g/dL (33-37); MEAN PLATELET VOLUME 8.6 fl (7.4-10.4); MONO # 0.62 K/mm3 (0.20-0.80); NEU # 5.23 K/mm3 (1.40-6.50); PLATELET COUNT 330 K/mm3 (130-400); RED BLOOD COUNT 4.03 M/mm3 (4.10-5.30); RED CELL DISTRIBUTION WIDTH 12.8 % (11.5-14.5); WHITE BLOOD COUNT 10.8 K/mm3 (4.8-10.8)
[2021-03-09 23:31] LABS: ALBUMIN 4.1 g/dL (3.5-5.0); POTASSIUM 3.9 mmol/L (3.5-5.1)
[2021-03-09 23:32] LABS: CALCIUM 8.7 mg/dL (8.3-10.5)
[2021-03-09 23:35] LABS: TOTAL BILIRUBIN 0.3 mg/dL (0.2-1.2)
[2021-03-09] MEDS ORDERED: ED TYLENOL6 UDTAB/BO PO (23:48)
[2021-03-09] MEDS ORDERED: ZOFRAN ODT4 MG PO (23:59)
[2021-03-10 00:31] VITALS: BP 142/87
== END 2021-03-10 00:31 | disposition home or self-care (01) ==
LOC: ED 22:44
PROVIDERS: Nurse Practitioner
DX: E11.65 Type 2 diabetes mellitus with hyperglycemia (principal); K21.9 Gastro-esophageal reflux disease without esophagitis; I10 Essential (primary) hypertension; F43.10 Post-traumatic stress disorder, unspecified; F41.9 Anxiety disorder, unspecified; F32.A Depression, unspecified; Z79.4 Long term (current) use of insulin

== ENCOUNTER 2021-03-16 20:54 | Emergency (ER) | payer MEDICARE, MEDICAID ==
[~2021-03-16] VITALS: Ht 167.6 cm; Wt 126.1 kg
[~2021-03-16 20:54] MED LIST changes: +CYPROHEPTADINE H4 M1 PO; +ED TYLENOL6 UDTAB/BO PO; +FOLTX 2 MG PO; +NALTREXONE HYDR50 MG PO
[2021-03-16] MEDS ORDERED: FOLIC ACID1 MG PO (22:45)
[2021-03-16] MEDS ORDERED: VITAMIN B122500 MC1 PO (22:45)
[2021-03-16 23:27] VITALS: BP 121/88
== END 2021-03-16 23:27 | disposition home or self-care (01) ==
LOC: ED 20:54
DX: S93.401A Sprain of unspecified ligament of right ankle, initial encounter (principal); R11.0 Nausea; E11.9 Type 2 diabetes mellitus without complications; E89.0 Postprocedural hypothyroidism; Z79.4 Long term (current) use of insulin; Z79.890 Hormone replacement therapy; Z88.6 Allergy status to analgesic agent; W18.09XA Striking against other object with subsequent fall, initial encounter; Y92.009 Unspecified place in unspecified non-institutional (private) residence as the place of occurrence of the external cause

== ENCOUNTER 2021-03-23 17:53 | Emergency (ER) | payer MEDICARE, MEDICAID ==
[~2021-03-23] VITALS: Ht 167.6 cm; Wt 125.7 kg
[~2021-03-23 17:53] MED LIST changes: +VITAMIN B122500 MC1 PO
[2021-03-23 18:42] LABS: BASO # 0.07 K/mm3 (0.02-0.10); EOS # 0.41 K/mm3 (0.04-0.40); EOS % 5.6 % (1.0-5.0); HEMATOCRIT 34.6 % (37.0-47.0); HEMOGLOBIN 11.1 g/dL (12.5-16.0); LYMPH# 2.44 K/mm3 (1.50-4.00); MEAN CELL VOLUME 91 fl (78-100); MEAN CORPUSCULAR HEMOGLOBIN 29 pg (27-31); MEAN CORPUSCULAR HGB CONC 32 g/dL (33-37); MEAN PLATELET VOLUME 9.3 fl (7.4-10.4); MONO # 0.39 K/mm3 (0.20-0.80); NEU # 4.05 K/mm3 (1.40-6.50); PLATELET COUNT 172 K/mm3 (130-400); RED BLOOD COUNT 3.82 M/mm3 (4.10-5.30); RED CELL DISTRIBUTION WIDTH 12.9 % (11.5-14.5); WHITE BLOOD COUNT 7.4 K/mm3 (4.8-10.8)
[2021-03-23 18:51] LABS: ALBUMIN 3.8 g/dL (3.5-5.0)
[2021-03-23 18:52] LABS: POTASSIUM 4.8 mmol/L (3.5-5.1)
[2021-03-23 18:53] LABS: CALCIUM 8.6 mg/dL (8.3-10.5)
[2021-03-23 18:54] LABS: TOTAL PROTEIN 6.6 g/dL (6.4-8.3)
[2021-03-23 18:56] LABS: TOTAL BILIRUBIN 0.3 mg/dL (0.2-1.2)
[2021-03-23 20:14] LABS: URINE WBC 0 /hpf (0-3)
[2021-03-23 20:32] LABS: URINE APPEARANCE CLEAR; URINE BILIRUBIN NEGATIVE (NEGATIVE); URINE BLOOD NEGATIVE (NEGATIVE); URINE COLOR YELLOW; URINE KETONE NEGATIVE (NEGATIVE); URINE LEUKOCYTE ESTERASE NEGATIVE (NEGATIVE); URINE MUCUS PRESENT (NOT PRESENT); URINE NITRATE NEGATIVE (NEGATIVE); URINE PROTEIN(semi-quant) TRACE (NEGATIVE); URINE UROBILINOGEN NORMAL (NORMAL)
[2021-03-23 22:50] VITALS: BP 137/75
== END 2021-03-24 08:13 | disposition home or self-care (01) ==
LOC: ED 17:53
PROVIDERS: Physician Assistant
DX: E11.65 Type 2 diabetes mellitus with hyperglycemia (principal); E87.1 Hypo-osmolality and hyponatremia; E86.0 Dehydration; Z79.4 Long term (current) use of insulin; Z79.84 Long term (current) use of oral hypoglycemic drugs
CPT/HCPCS: J1815; J1885; J2405; J2550; J7030

== ENCOUNTER 2021-03-31 10:51 | Emergency (ER) | payer MEDICARE, MEDICAID ==
[~2021-03-31] VITALS: Ht 167.6 cm; Wt 121.6 kg
[2021-03-31 11:19] LABS: URINE WBC 0 /hpf (0-3)
[2021-03-31 11:24] LABS: BASO # 0.07 K/mm3 (0.02-0.10); EOS % 5.5 % (1.0-5.0); HEMATOCRIT 36.7 % (37.0-47.0); HEMOGLOBIN 11.9 g/dL (12.5-16.0); LYMPH# 2.08 K/mm3 (1.50-4.00); MEAN CELL VOLUME 90 fl (78-100); MEAN CORPUSCULAR HEMOGLOBIN 29 pg (27-31); MEAN CORPUSCULAR HGB CONC 32 g/dL (33-37); MONO # 0.32 K/mm3 (0.20-0.80); NEU # 4.41 K/mm3 (1.40-6.50); PLATELET COUNT 271 K/mm3 (130-400); RED BLOOD COUNT 4.07 M/mm3 (4.10-5.30); RED CELL DISTRIBUTION WIDTH 12.7 % (11.5-14.5); WHITE BLOOD COUNT 7.3 K/mm3 (4.8-10.8)
[2021-03-31 11:30] LABS: ALBUMIN 3.9 g/dL (3.5-5.0)
[2021-03-31 11:31] LABS: POTASSIUM 4.6 mmol/L (3.5-5.1)
[2021-03-31 11:32] LABS: CALCIUM 8.7 mg/dL (8.3-10.5)
[2021-03-31 11:33] LABS: TOTAL PROTEIN 6.8 g/dL (6.4-8.3)
[2021-03-31 11:35] LABS: TOTAL BILIRUBIN 0.3 mg/dL (0.2-1.2)
[2021-03-31 11:57] LABS: URINE APPEARANCE CLOUDY; URINE COLOR YELLOW
[2021-03-31 11:58] LABS: URINE BILIRUBIN NEGATIVE (NEGATIVE); URINE BLOOD NEGATIVE (NEGATIVE); URINE KETONE NEGATIVE (NEGATIVE); URINE LEUKOCYTE ESTERASE NEGATIVE (NEGATIVE); URINE MUCUS PRESENT (NOT PRESENT); URINE NITRATE NEGATIVE (NEGATIVE); URINE PROTEIN(semi-quant) NEGATIVE (NEGATIVE); URINE UROBILINOGEN NORMAL (NORMAL)
[2021-03-31 14:13] VITALS: BP 136/78
[2021-03-31] MEDS ORDERED: NOVOLOG FLEX100 U/ML SQ (14:24)
[2021-03-31] MEDS ORDERED: CARAFATE 1GM1 G PO (14:24)
[2021-03-31] MEDS ORDERED: ZYRTEC10 M3 PO (15:15)
== END 2021-03-31 14:33 | disposition home or self-care (01) ==
LOC: ED 10:51
PROVIDERS: Physician Assistant
DX: E11.65 Type 2 diabetes mellitus with hyperglycemia (principal); K21.9 Gastro-esophageal reflux disease without esophagitis; E11.43 Type 2 diabetes mellitus with diabetic autonomic (poly)neuropathy; K31.84 Gastroparesis; Z79.4 Long term (current) use of insulin; Z79.899 Other long term (current) drug therapy
CPT/HCPCS: J1815; J2550

== ENCOUNTER 2021-04-13 22:47 | Emergency (ER) | payer MEDICARE, MEDICAID ==
[~2021-04-13] VITALS: Ht 167.6 cm; Wt 127.0 kg
[2021-04-13 23:48] VITALS: BP 112/81
== END 2021-04-13 23:48 | disposition home or self-care (01) ==
LOC: ED 22:47
DX: E11.65 Type 2 diabetes mellitus with hyperglycemia (principal); K21.9 Gastro-esophageal reflux disease without esophagitis; Z91.14 Patient's other noncompliance with medication regimen

== ENCOUNTER 2021-04-17 19:50 | Emergency (ER) | payer MEDICARE, MEDICAID ==
[2021-04-17 20:41] VITALS: BP 123/86
== END 2021-04-17 20:41 | disposition home or self-care (01) ==
LOC: ED 19:50
DX: R05.9 Cough, unspecified (principal)

== ENCOUNTER 2021-04-21 19:22 | Emergency (ER) | payer MEDICARE, MEDICAID ==
[2021-04-21 19:55] LABS: URINE WBC 0 /hpf (0-3)
[2021-04-21 20:01] LABS: BASO # 0.08 K/mm3 (0.02-0.10); EOS # 0.36 K/mm3 (0.04-0.40); EOS % 3.1 % (1.0-5.0); HEMOGLOBIN 11.7 g/dL (12.5-16.0); LYMPH# 2.17 K/mm3 (1.50-4.00); MEAN CELL VOLUME 87 fl (78-100); MEAN CORPUSCULAR HEMOGLOBIN 29 pg (27-31); MEAN CORPUSCULAR HGB CONC 33 g/dL (33-37); MEAN PLATELET VOLUME 8.9 fl (7.4-10.4); MONO # 0.55 K/mm3 (0.20-0.80); NEU # 8.62 K/mm3 (1.40-6.50); PLATELET COUNT 270 K/mm3 (130-400); RED BLOOD COUNT 4.01 M/mm3 (4.10-5.30); RED CELL DISTRIBUTION WIDTH 12.4 % (11.5-14.5); WHITE BLOOD COUNT 11.8 K/mm3 (4.8-10.8)
[2021-04-21 20:14] LABS: ALBUMIN 3.9 g/dL (3.5-5.0)
[2021-04-21 20:15] LABS: POTASSIUM 4.2 mmol/L (3.5-5.1)
[2021-04-21 20:16] LABS: CALCIUM 8.9 mg/dL (8.3-10.5)
[2021-04-21 20:17] LABS: TOTAL PROTEIN 6.9 g/dL (6.4-8.3)
[2021-04-21 20:19] LABS: TOTAL BILIRUBIN 0.6 mg/dL (0.2-1.2)
[2021-04-21 20:21] LABS: URINE APPEARANCE CLEAR; URINE BILIRUBIN NEGATIVE (NEGATIVE); URINE BLOOD NEGATIVE (NEGATIVE); URINE COLOR YELLOW; URINE KETONE 1+ (NEGATIVE); URINE LEUKOCYTE ESTERASE NEGATIVE (NEGATIVE); URINE MUCUS PRESENT (NOT PRESENT); URINE NITRATE NEGATIVE (NEGATIVE); URINE PROTEIN(semi-quant) TRACE (NEGATIVE); URINE UROBILINOGEN NORMAL (NORMAL)
[2021-04-21 23:04] LABS: ALBUMIN 3.6 g/dL (3.5-5.0); POTASSIUM 4.1 mmol/L (3.5-5.1)
[2021-04-21 23:05] LABS: CALCIUM 8.7 mg/dL (8.3-10.5)
[2021-04-21 23:06] LABS: TOTAL PROTEIN 6.4 g/dL (6.4-8.3)
[2021-04-21 23:08] LABS: TOTAL BILIRUBIN 0.4 mg/dL (0.2-1.2)
[2021-04-21 23:47] VITALS: BP 142/87
== END 2021-04-21 23:49 | disposition home or self-care (01) ==
LOC: ED 19:22
PROVIDERS: Nurse Practitioner Family
DX: R05.9 Cough, unspecified (principal)
CPT/HCPCS: J2405; J7030

== ENCOUNTER 2021-04-27 14:01 | Emergency (ER) | payer MEDICARE, MEDICAID ==
[~2021-04-27] VITALS: Ht 167.6 cm; Wt 128.0 kg
[2021-04-27 15:06] LABS: BASO # 0.03 K/mm3 (0.02-0.10); EOS # 0.13 K/mm3 (0.04-0.40); EOS % 1.4 % (1.0-5.0); HEMATOCRIT 38.5 % (37.0-47.0); HEMOGLOBIN 12.6 g/dL (12.5-16.0); LYMPH# 0.58 K/mm3 (1.50-4.00); MEAN CELL VOLUME 89 fl (78-100); MEAN CORPUSCULAR HEMOGLOBIN 29 pg (27-31); MEAN CORPUSCULAR HGB CONC 33 g/dL (33-37); MEAN PLATELET VOLUME 8.8 fl (7.4-10.4); MONO # 0.31 K/mm3 (0.20-0.80); NEU # 7.94 K/mm3 (1.40-6.50); PLATELET COUNT 317 K/mm3 (130-400); RED BLOOD COUNT 4.34 M/mm3 (4.10-5.30); RED CELL DISTRIBUTION WIDTH 12.7 % (11.5-14.5)
[2021-04-27 15:10] LABS: POTASSIUM 4.1 mmol/L (3.5-5.1)
[2021-04-27 15:11] LABS: CALCIUM 9.2 mg/dL (8.3-10.5)
[2021-04-27 15:12] LABS: TOTAL PROTEIN 7.1 g/dL (6.4-8.3)
[2021-04-27 15:14] LABS: TOTAL BILIRUBIN 0.3 mg/dL (0.2-1.2)
[2021-04-27 15:50] LABS: URINE APPEARANCE CLEAR; URINE COLOR YELLOW; URINE PROTEIN(semi-quant) NEGATIVE (NEGATIVE)
[2021-04-27 15:51] LABS: URINE BILIRUBIN NEGATIVE (NEGATIVE); URINE BLOOD NEGATIVE (NEGATIVE); URINE KETONE NEGATIVE (NEGATIVE); URINE LEUKOCYTE ESTERASE NEGATIVE (NEGATIVE); URINE MUCUS PRESENT (NOT PRESENT); URINE NITRATE NEGATIVE (NEGATIVE); URINE UROBILINOGEN NORMAL (NORMAL)
[2021-04-27] MEDS ORDERED: MORGIDOX 1X100100 MG PO (16:20)
[2021-04-27 16:30] VITALS: BP 139/90
[2021-04-27 17:57] LABS: LYMPHOCYTE 7 % (20-51); MONOCYTE 5 % (3-10); NEUTROPHILS 86 % (42-75)
== END 2021-04-27 16:30 | disposition home or self-care (01) ==
LOC: ED 14:01
PROVIDERS: Physician Assistant
DX: J06.9 Acute upper respiratory infection, unspecified (principal); J40 Bronchitis, not specified as acute or chronic; Z20.822 Contact with and (suspected) exposure to COVID-19
CPT/HCPCS: J2550; J7030

== ENCOUNTER 2021-05-21 22:22 | Emergency (ER) | payer MEDICARE, MEDICAID ==
[~2021-05-21] VITALS: Ht 167.6 cm; Wt 128.7 kg
[2021-05-22 01:01] LABS: BASO # 0.07 K/mm3 (0.02-0.10); EOS # 0.49 K/mm3 (0.04-0.40); EOS % 5.4 % (1.0-5.0); HEMATOCRIT 35.2 % (37.0-47.0); HEMOGLOBIN 11.3 g/dL (12.5-16.0); LYMPH# 3.55 K/mm3 (1.50-4.00); MEAN CELL VOLUME 92 fl (78-100); MEAN CORPUSCULAR HEMOGLOBIN 29 pg (27-31); MEAN CORPUSCULAR HGB CONC 32 g/dL (33-37); MONO # 0.52 K/mm3 (0.20-0.80); NEU # 4.51 K/mm3 (1.40-6.50); PLATELET COUNT 245 K/mm3 (130-400); RED BLOOD COUNT 3.84 M/mm3 (4.10-5.30); WHITE BLOOD COUNT 9.2 K/mm3 (4.8-10.8)
[2021-05-22 01:06] LABS: ALBUMIN 3.8 g/dL (3.5-5.0)
[2021-05-22 01:07] LABS: POTASSIUM 4.5 mmol/L (3.5-5.1)
[2021-05-22 01:08] LABS: CALCIUM 8.9 mg/dL (8.3-10.5)
[2021-05-22 01:09] LABS: TOTAL PROTEIN 6.8 g/dL (6.4-8.3)
[2021-05-22 01:11] LABS: TOTAL BILIRUBIN 0.5 mg/dL (0.2-1.2)
[2021-05-22 01:17] LABS: URINE APPEARANCE CLEAR; URINE BILIRUBIN NEGATIVE (NEGATIVE); URINE BLOOD TRACE (NEGATIVE); URINE COLOR YELLOW; URINE KETONE NEGATIVE (NEGATIVE); URINE LEUKOCYTE ESTERASE NEGATIVE (NEGATIVE); URINE NITRATE NEGATIVE (NEGATIVE); URINE PROTEIN(semi-quant) TRACE (NEGATIVE); URINE UROBILINOGEN NORMAL (NORMAL); URINE WBC 0-1 /hpf (0-3)
[2021-05-22 01:18] LABS: URINE MUCUS PRESENT (NOT PRESENT)
[2021-05-22 02:14] VITALS: BP 132/78
== END 2021-05-22 02:14 | disposition home or self-care (01) ==
LOC: ED 22:22
PROVIDERS: Family Medicine
DX: E11.65 Type 2 diabetes mellitus with hyperglycemia (principal); E66.9 Obesity, unspecified; Z68.42 Body mass index [BMI] 45.0-49.9, adult
CPT/HCPCS: J1815

== ENCOUNTER 2021-06-05 10:47 | Emergency (ER) | payer MEDICARE, MEDICAID ==
[2021-06-05 10:58] VITALS: BP 118/78
[2021-06-05] MEDS ORDERED: LEVEMIR100 U/M1 SQ (11:32)
[2021-06-05 11:44] LABS: CALCIUM 8.6 mg/dL (8.3-10.5)
[2021-06-05 11:52] LABS: URINE APPEARANCE HAZY; URINE COLOR LT YELLOW
[2021-06-05 11:53] LABS: URINE BILIRUBIN NEGATIVE (NEGATIVE); URINE BLOOD NEGATIVE (NEGATIVE); URINE KETONE NEGATIVE (NEGATIVE); URINE LEUKOCYTE ESTERASE NEGATIVE (NEGATIVE); URINE NITRATE NEGATIVE (NEGATIVE); URINE PROTEIN(semi-quant) NEGATIVE (NEGATIVE); URINE UROBILINOGEN NORMAL (NORMAL); URINE WBC 0-1 /hpf (0-3)
== END 2021-06-05 13:01 | disposition home or self-care (01) ==
LOC: ED 10:47
PROVIDERS: Family Medicine
DX: E11.65 Type 2 diabetes mellitus with hyperglycemia (principal); E66.9 Obesity, unspecified; Z79.4 Long term (current) use of insulin
CPT/HCPCS: J1815

== ENCOUNTER 2021-08-11 12:01 | Emergency (ER) | payer MEDICARE, MEDICAID ==
[2021-08-11 12:34] LABS: BASO # 0.04 K/mm3 (0.02-0.10); EOS # 0.29 K/mm3 (0.04-0.40); EOS % 4.2 % (1.0-5.0); HEMOGLOBIN 11.7 g/dL (12.5-16.0); LYMPH# 1.99 K/mm3 (1.50-4.00); MEAN CELL VOLUME 88 fl (78-100); MEAN CORPUSCULAR HEMOGLOBIN 29 pg (27-31); MEAN CORPUSCULAR HGB CONC 33 g/dL (33-37); MEAN PLATELET VOLUME 9.1 fl (7.4-10.4); MONO # 0.29 K/mm3 (0.20-0.80); NEU # 4.36 K/mm3 (1.40-6.50); PLATELET COUNT 269 K/mm3 (130-400); RED BLOOD COUNT 4.08 M/mm3 (4.10-5.30); RED CELL DISTRIBUTION WIDTH 12.5 % (11.5-14.5)
[2021-08-11 12:47] LABS: POTASSIUM 4.3 mmol/L (3.5-5.1)
[2021-08-11 12:48] LABS: CALCIUM 8.8 mg/dL (8.3-10.5)
[2021-08-11 12:49] LABS: TOTAL PROTEIN 6.7 g/dL (6.4-8.3)
[2021-08-11 12:51] LABS: TOTAL BILIRUBIN 0.5 mg/dL (0.2-1.2)
[2021-08-11 13:59] LABS: URINE APPEARANCE HAZY; URINE COLOR YELLOW
[2021-08-11 14:00] LABS: URINE BILIRUBIN 0 (NEGATIVE); URINE BLOOD 0 (NEGATIVE); URINE KETONE 0 (NEGATIVE); URINE LEUKOCYTE ESTERASE NEGATIVE (NEGATIVE); URINE NITRATE NEGATIVE (NEGATIVE); URINE PROTEIN(semi-quant) NEGATIVE (NEGATIVE); URINE UROBILINOGEN NORMAL (NORMAL); URINE WBC 0-1 /hpf (0-3)
[2021-08-11 14:11] VITALS: BP 97/72
[2021-08-12] MEDS ORDERED: MELOXICAM15 MG PO (20:00)
[2021-08-12] MEDS ORDERED: MINIPRESS2 MG PO (20:01)
== END 2021-08-11 14:10 | disposition home or self-care (01) ==
LOC: ED 12:01
PROVIDERS: Nurse Practitioner
DX: E11.65 Type 2 diabetes mellitus with hyperglycemia (principal); Z28.310 Unvaccinated for COVID-19
CPT/HCPCS: J2765; J7030

== ENCOUNTER → 2021-08-12 | Emergency (ER) | payer MEDICARE, MEDICAID ==
[~2021-08-12] MED LIST changes: +MELOXICAM15 MG PO; +MINIPRESS2 MG PO
[2021-08-12 19:17] LABS: BASO # 0.06 K/mm3 (0.02-0.10); EOS # 0.27 K/mm3 (0.04-0.40); EOS % 3.6 % (1.0-5.0); HEMATOCRIT 36.6 % (37.0-47.0); HEMOGLOBIN 11.9 g/dL (12.5-16.0); LYMPH# 2.28 K/mm3 (1.50-4.00); MEAN CELL VOLUME 89 fl (78-100); MEAN CORPUSCULAR HEMOGLOBIN 29 pg (27-31); MEAN CORPUSCULAR HGB CONC 33 g/dL (33-37); MEAN PLATELET VOLUME 8.5 fl (7.4-10.4); MONO # 0.43 K/mm3 (0.20-0.80); PLATELET COUNT 271 K/mm3 (130-400); RED BLOOD COUNT 4.13 M/mm3 (4.10-5.30); RED CELL DISTRIBUTION WIDTH 12.4 % (11.5-14.5); WHITE BLOOD COUNT 7.5 K/mm3 (4.8-10.8)
[2021-08-12 19:22] LABS: URINE WBC 0 /hpf (0-3)
[2021-08-12 19:32] LABS: ALBUMIN 4.1 g/dL (3.5-5.0)
[2021-08-12 19:33] LABS: POTASSIUM 4.2 mmol/L (3.5-5.1); SODIUM 138 mmol/L (136-145)
[2021-08-12 19:35] LABS: GLUCOSE 267 mg/dL (65-105)
[2021-08-12 19:36] LABS: CARBON DIOXIDE 22 mmol/L (22-29)
[2021-08-12 19:37] LABS: TOTAL BILIRUBIN 0.5 mg/dL (0.2-1.2)
[2021-08-12 19:38] LABS: URINE APPEARANCE CLEAR; URINE BILIRUBIN NEGATIVE (NEGATIVE); URINE BLOOD NEGATIVE (NEGATIVE); URINE COLOR YELLOW; URINE KETONE NEGATIVE (NEGATIVE); URINE LEUKOCYTE ESTERASE NEGATIVE (NEGATIVE); URINE MUCUS PRESENT (NOT PRESENT); URINE NITRATE NEGATIVE (NEGATIVE); URINE PROTEIN(semi-quant) NEGATIVE (NEGATIVE); URINE UROBILINOGEN NORMAL (NORMAL)
[2021-08-12 19:40] LABS: AST-SGOT 10 U/L (5-34)
[2021-08-12 19:42] LABS: ALT/SGPT 13 U/L (0-55)
[2021-08-12 19:48] LABS: ACETAMINOPHEN < 1 ug/mL; ALCOHOL IN-HOUSE < 10 mg/dL (<10)
[2021-08-13 03:26] VITALS: BP 164/99
== END ==
LOC: ED 18:49
PROVIDERS: Physician Assistant
DX: F32.A Depression, unspecified (principal); R45.851 Suicidal ideations; Z87.891 Personal history of nicotine dependence; Z20.822 Contact with and (suspected) exposure to COVID-19

== ENCOUNTER 2021-08-27 23:24 | Emergency (ER) | payer MEDICARE, MEDICAID ==
[~2021-08-27] VITALS: Wt 133.5 kg
[2021-08-27] MEDS ORDERED: VRAYLAR6 MG PO (23:39)
[2021-08-28 00:29] LABS: POTASSIUM 4.4 mmol/L (3.5-5.1)
[2021-08-28 00:31] LABS: CALCIUM 9.4 mg/dL (8.3-10.5)
[2021-08-28 04:30] VITALS: BP 116/79
== END 2021-08-28 04:31 | disposition home or self-care (01) ==
LOC: ED 23:24
PROVIDERS: Family Medicine
DX: E11.65 Type 2 diabetes mellitus with hyperglycemia (principal); Z79.4 Long term (current) use of insulin
CPT/HCPCS: J1815

== ENCOUNTER 2021-08-31 18:20 | Emergency (ER) | payer MEDICARE, MEDICAID ==
[~2021-08-31] VITALS: Ht 167.6 cm; Wt 134.2 kg
[2021-08-31] MEDS ORDERED: LEVEMIR100 U/M1 SQ (18:43)
[2021-08-31] MEDS ORDERED: HYDROXYZINE PAM50 M2 PO (18:44)
[2021-08-31] MEDS ORDERED: TEMAZEPAM PO (18:46)
[2021-08-31 19:24] LABS: URINE WBC 0 /hpf (0-3)
[2021-08-31 19:26] LABS: BASO # 0.05 K/mm3 (0.02-0.10); EOS % 4.4 % (1.0-5.0); HEMATOCRIT 37.5 % (37.0-47.0); HEMOGLOBIN 12.2 g/dL (12.5-16.0); LYMPH# 2.39 K/mm3 (1.50-4.00); MEAN CELL VOLUME 89 fl (78-100); MEAN CORPUSCULAR HEMOGLOBIN 29 pg (27-31); MEAN CORPUSCULAR HGB CONC 33 g/dL (33-37); MEAN PLATELET VOLUME 9.3 fl (7.4-10.4); MONO # 0.39 K/mm3 (0.20-0.80); NEU # 3.66 K/mm3 (1.40-6.50); PLATELET COUNT 282 K/mm3 (130-400); RED BLOOD COUNT 4.21 M/mm3 (4.10-5.30); RED CELL DISTRIBUTION WIDTH 12.3 % (11.5-14.5); WHITE BLOOD COUNT 6.8 K/mm3 (4.8-10.8)
[2021-08-31 19:37] LABS: ALBUMIN 4.2 g/dL (3.5-5.0); POTASSIUM 4.6 mmol/L (3.5-5.1)
[2021-08-31 19:38] LABS: CALCIUM 8.8 mg/dL (8.3-10.5)
[2021-08-31 19:39] LABS: URINE APPEARANCE CLEAR; URINE BILIRUBIN NEGATIVE (NEGATIVE); URINE BLOOD NEGATIVE (NEGATIVE); URINE COLOR YELLOW; URINE KETONE NEGATIVE (NEGATIVE); URINE LEUKOCYTE ESTERASE NEGATIVE (NEGATIVE); URINE NITRATE NEGATIVE (NEGATIVE); URINE PROTEIN(semi-quant) NEGATIVE (NEGATIVE); URINE UROBILINOGEN NORMAL (NORMAL)
[2021-08-31 19:40] LABS: URINE MUCUS PRESENT (NOT PRESENT)
[2021-08-31 19:41] LABS: TOTAL BILIRUBIN 0.5 mg/dL (0.2-1.2)
[2021-08-31 22:36] VITALS: BP 131/88
== END 2021-08-31 22:36 | disposition home or self-care (01) ==
LOC: ED 18:20
PROVIDERS: Physician Assistant
DX: E11.65 Type 2 diabetes mellitus with hyperglycemia (principal); Z20.822 Contact with and (suspected) exposure to COVID-19; Z79.4 Long term (current) use of insulin
CPT/HCPCS: J1815; J2550; J7030

== ENCOUNTER 2021-09-07 04:33 | Emergency (ER) | payer MEDICARE, MEDICAID ==
[~2021-09-07] VITALS: Ht 167.6 cm; Wt 133.8 kg
[~2021-09-07 04:33] MED LIST changes: +HYDROXYZINE PAM50 M2 PO
[2021-09-07 05:53] LABS: BASO # 0.04 K/mm3 (0.02-0.10); EOS # 0.32 K/mm3 (0.04-0.40); EOS % 4.3 % (1.0-5.0); HEMOGLOBIN 12.1 g/dL (12.5-16.0); LYMPH# 3.59 K/mm3 (1.50-4.00); MEAN CELL VOLUME 88 fl (78-100); MEAN CORPUSCULAR HEMOGLOBIN 29 pg (27-31); MEAN CORPUSCULAR HGB CONC 33 g/dL (33-37); MEAN PLATELET VOLUME 9.3 fl (7.4-10.4); MONO # 0.49 K/mm3 (0.20-0.80); NEU # 3.05 K/mm3 (1.40-6.50); PLATELET COUNT 256 K/mm3 (130-400); RED BLOOD COUNT 4.19 M/mm3 (4.10-5.30); RED CELL DISTRIBUTION WIDTH 12.1 % (11.5-14.5); WHITE BLOOD COUNT 7.5 K/mm3 (4.8-10.8)
[2021-09-07 06:00] LABS: URINE APPEARANCE HAZY; URINE COLOR YELLOW; URINE KETONE NEGATIVE (NEGATIVE); URINE PROTEIN(semi-quant) NEGATIVE (NEGATIVE)
[2021-09-07 06:01] LABS: URINE BILIRUBIN NEGATIVE (NEGATIVE); URINE BLOOD NEGATIVE (NEGATIVE); URINE LEUKOCYTE ESTERASE NEGATIVE (NEGATIVE); URINE NITRATE NEGATIVE (NEGATIVE); URINE UROBILINOGEN NORMAL (NORMAL); URINE WBC 0-1 /hpf (0-3)
[2021-09-07 06:03] LABS: POTASSIUM 4.4 mmol/L (3.5-5.1)
[2021-09-07 06:04] LABS: CALCIUM 8.8 mg/dL (8.3-10.5)
[2021-09-07 06:05] LABS: TOTAL PROTEIN 6.9 g/dL (6.4-8.3)
[2021-09-07 06:07] LABS: TOTAL BILIRUBIN 0.4 mg/dL (0.2-1.2)
[2021-09-07 07:42] VITALS: BP 127/91
== END 2021-09-07 07:42 | disposition home or self-care (01) ==
LOC: ED 04:33
PROVIDERS: Physician Assistant
DX: R10.31 Right lower quadrant pain (principal); Z87.19 Personal history of other diseases of the digestive system; Z90.49 Acquired absence of other specified parts of digestive tract
CPT/HCPCS: J1885; J3010; Q9967

== ENCOUNTER 2021-09-13 22:01 | Emergency (ER) | payer MEDICARE, MEDICAID ==
[~2021-09-13] VITALS: Wt 133.8 kg
[2021-09-13] MEDS ORDERED: PROPRANOLOL HCL20 M2 PO (22:32)
[2021-09-13 23:50] VITALS: BP 130/89
== END 2021-09-13 23:51 | disposition home or self-care (01) ==
LOC: ED 22:01
DX: E11.65 Type 2 diabetes mellitus with hyperglycemia (principal); Z87.891 Personal history of nicotine dependence; Z79.4 Long term (current) use of insulin
CPT/HCPCS: J1815; J7030

== ENCOUNTER 2021-09-21 18:33 | Emergency (ER) | payer MEDICARE, MEDICAID ==
[~2021-09-21 18:33] MED LIST changes: +PROPRANOLOL HCL20 M2 PO
[2021-09-21] MEDS ORDERED: SAPHRIS10 MG PO (19:00)
[2021-09-21 20:04] VITALS: BP 137/78
== END 2021-09-21 20:05 | disposition home or self-care (01) ==
LOC: ED 18:33
DX: R07.81 Pleurodynia (principal); E10.9 Type 1 diabetes mellitus without complications; Z28.310 Unvaccinated for COVID-19; Z79.4 Long term (current) use of insulin; Y93.02 Activity, running; Y92.009 Unspecified place in unspecified non-institutional (private) residence as the place of occurrence of the external cause

== ENCOUNTER 2021-09-29 09:06 | Emergency (ER) | payer MEDICARE, MEDICAID ==
[~2021-09-29] VITALS: Ht 167.6 cm; Wt 133.6 kg
[~2021-09-29 09:06] MED LIST changes: +SAPHRIS10 MG PO
[2021-09-29 09:43] LABS: URINE WBC 0 /hpf (0-3)
[2021-09-29 09:59] LABS: URINE APPEARANCE CLEAR; URINE BILIRUBIN NEGATIVE (NEGATIVE); URINE BLOOD NEGATIVE (NEGATIVE); URINE COLOR LIGHT YELLOW; URINE KETONE 1+ (NEGATIVE); URINE LEUKOCYTE ESTERASE NEGATIVE (NEGATIVE); URINE NITRATE NEGATIVE (NEGATIVE); URINE PROTEIN(semi-quant) NEGATIVE (NEGATIVE); URINE UROBILINOGEN NORMAL (NORMAL)
[2021-09-29 10:11] LABS: BASO # 0.05 K/mm3 (0.02-0.10); EOS # 0.24 K/mm3 (0.04-0.40); EOS % 3.2 % (1.0-5.0); HEMATOCRIT 37.5 % (37.0-47.0); LYMPH# 1.51 K/mm3 (1.50-4.00); MEAN CELL VOLUME 89 fl (78-100); MEAN CORPUSCULAR HEMOGLOBIN 28 pg (27-31); MEAN CORPUSCULAR HGB CONC 32 g/dL (33-37); MEAN PLATELET VOLUME 8.9 fl (7.4-10.4); MONO # 0.33 K/mm3 (0.20-0.80); NEU # 5.45 K/mm3 (1.40-6.50); PLATELET COUNT 247 K/mm3 (130-400); RED BLOOD COUNT 4.22 M/mm3 (4.10-5.30); RED CELL DISTRIBUTION WIDTH 12.2 % (11.5-14.5); WHITE BLOOD COUNT 7.6 K/mm3 (4.8-10.8)
[2021-09-29 10:20] LABS: TOTAL PROTEIN 6.7 g/dL (6.4-8.3)
[2021-09-29 10:22] LABS: TOTAL BILIRUBIN 0.6 mg/dL (0.2-1.2)
[2021-09-29 12:03] VITALS: BP 120/78
== END 2021-09-29 11:50 | disposition home or self-care (01) ==
LOC: ED 09:06
PROVIDERS: Physician Assistant
DX: E11.65 Type 2 diabetes mellitus with hyperglycemia (principal); Z79.4 Long term (current) use of insulin
CPT/HCPCS: J1815

== ENCOUNTER 2021-10-03 12:00 | Emergency (ER) | payer MEDICARE, MEDICAID ==
[~2021-10-03] VITALS: Ht 167.6 cm; Wt 127.3 kg
[2021-10-03 14:34] LABS: BASO # 0.04 K/mm3 (0.02-0.10); EOS # 0.26 K/mm3 (0.04-0.40); EOS % 4.6 % (1.0-5.0); HEMATOCRIT 38.5 % (37.0-47.0); HEMOGLOBIN 12.5 g/dL (12.5-16.0); LYMPH# 1.68 K/mm3 (1.50-4.00); MEAN CELL VOLUME 88 fl (78-100); MEAN CORPUSCULAR HEMOGLOBIN 29 pg (27-31); MEAN CORPUSCULAR HGB CONC 33 g/dL (33-37); MEAN PLATELET VOLUME 8.9 fl (7.4-10.4); MONO # 0.47 K/mm3 (0.20-0.80); NEU # 3.21 K/mm3 (1.40-6.50); PLATELET COUNT 232 K/mm3 (130-400); RED BLOOD COUNT 4.37 M/mm3 (4.10-5.30); RED CELL DISTRIBUTION WIDTH 12.1 % (11.5-14.5); WHITE BLOOD COUNT 5.7 K/mm3 (4.8-10.8)
[2021-10-03 14:45] LABS: ALBUMIN 4.1 g/dL (3.5-5.0); POTASSIUM 4.3 mmol/L (3.5-5.1)
[2021-10-03 14:49] LABS: TOTAL BILIRUBIN 0.6 mg/dL (0.2-1.2)
[2021-10-03] MEDS ORDERED: ZOFRAN ODT4 MG PO (16:28)
[2021-10-03 16:34] VITALS: BP 128/80
== END 2021-10-03 16:37 | disposition home or self-care (01) ==
LOC: ED 12:00
PROVIDERS: Family Medicine
DX: K52.9 Noninfective gastroenteritis and colitis, unspecified (principal); E11.9 Type 2 diabetes mellitus without complications; Z90.49 Acquired absence of other specified parts of digestive tract; Z20.822 Contact with and (suspected) exposure to COVID-19

== ENCOUNTER 2021-10-24 22:58 | Emergency (ER) | payer MEDICARE, MEDICAID ==
[~2021-10-24] VITALS: Ht 152.4 cm; Wt 127.3 kg
[2021-10-25 00:54] VITALS: BP 111/76
== END 2021-10-25 00:54 | disposition home or self-care (01) ==
LOC: ED 22:58
DX: E11.9 Type 2 diabetes mellitus without complications (principal); E66.01 Morbid (severe) obesity due to excess calories; Z28.310 Unvaccinated for COVID-19

== ENCOUNTER 2021-10-28 23:22 | Emergency (ER) | payer MEDICARE, MEDICAID ==
[~2021-10-28] VITALS: Wt 127.3 kg
[2021-10-28] MEDS ORDERED: TOPAMAX100 MG PO (23:38)
[2021-10-28] MEDS ORDERED: INVEGA6 MG (23:39)
[2021-10-28] MEDS ORDERED: ATIVAN1 M1 PO (23:40)
[2021-10-28] MEDS ORDERED: FOLIC ACID1 MG PO (23:42)
[2021-10-29 00:05] LABS: BASO # 0.06 K/mm3 (0.02-0.10); EOS # 0.31 K/mm3 (0.04-0.40); EOS % 3.4 % (1.0-5.0); HEMATOCRIT 36.6 % (37.0-47.0); HEMOGLOBIN 12.1 g/dL (12.5-16.0); LYMPH# 3.39 K/mm3 (1.50-4.00); MEAN CELL VOLUME 86 fl (78-100); MEAN CORPUSCULAR HEMOGLOBIN 28 pg (27-31); MEAN CORPUSCULAR HGB CONC 33 g/dL (33-37); MEAN PLATELET VOLUME 9.3 fl (7.4-10.4); MONO # 0.45 K/mm3 (0.20-0.80); NEU # 5.02 K/mm3 (1.40-6.50); PLATELET COUNT 258 K/mm3 (130-400); RED BLOOD COUNT 4.27 M/mm3 (4.10-5.30); RED CELL DISTRIBUTION WIDTH 12.3 % (11.5-14.5); WHITE BLOOD COUNT 9.2 K/mm3 (4.8-10.8)
[2021-10-29 00:11] LABS: ALBUMIN 4.1 g/dL (3.5-5.0); POTASSIUM 3.7 mmol/L (3.5-5.1); SODIUM 138 mmol/L (136-145)
[2021-10-29 00:13] LABS: CALCIUM 9.2 mg/dL (8.3-10.5)
[2021-10-29 00:14] LABS: GLUCOSE 211 mg/dL (65-105); TOTAL PROTEIN 6.8 g/dL (6.4-8.3)
[2021-10-29 00:15] LABS: CARBON DIOXIDE 20 mmol/L (22-29)
[2021-10-29 00:16] LABS: TOTAL BILIRUBIN 0.3 mg/dL (0.2-1.2)
[2021-10-29 00:19] LABS: ALCOHOL IN-HOUSE < 10 mg/dL (<10); AST-SGOT 11 U/L (5-34)
[2021-10-29 00:21] LABS: ALT/SGPT 12 U/L (0-55)
[2021-10-29 00:22] LABS: ACETAMINOPHEN < 1 ug/mL
[2021-10-29 04:06] LABS: URINE APPEARANCE CLOUDY; URINE BILIRUBIN NEGATIVE (NEGATIVE); URINE BLOOD NEGATIVE (NEGATIVE); URINE COLOR YELLOW; URINE GLUCOSE NEGATIVE (NEGATIVE); URINE KETONE NEGATIVE (NEGATIVE); URINE LEUKOCYTE ESTERASE NEGATIVE (NEGATIVE); URINE NITRATE NEGATIVE (NEGATIVE); URINE PROTEIN(semi-quant) TRACE (NEGATIVE); URINE UROBILINOGEN NORMAL (NORMAL)
[2021-10-29 04:07] LABS: URINE MUCUS PRESENT (NOT PRESENT)
[2021-10-29 16:13] VITALS: BP 107/82
== END 2021-10-29 16:18 ==
LOC: ED 23:22
PROVIDERS: Internal Medicine; Nurse Practitioner
DX: R45.851 Suicidal ideations (principal); F39 Unspecified mood [affective] disorder; Z20.822 Contact with and (suspected) exposure to COVID-19
CPT/HCPCS: J1815

== ENCOUNTER 2021-11-24 11:24 | Emergency (ER) | payer MEDICARE, MEDICAID ==
[~2021-11-24] VITALS: Ht 167.6 cm; Wt 125.2 kg
[~2021-11-24 11:24] MED LIST changes: +ATIVAN1 M1 PO; +INGREZZA60 MG PO; +INVEGA6 MG
[2021-11-24 12:21] LABS: BASO # 0.01 K/mm3 (0.02-0.10); EOS # 0.18 K/mm3 (0.04-0.40); EOS % 2.9 % (1.0-5.0); HEMATOCRIT 38.4 % (37.0-47.0); HEMOGLOBIN 12.4 g/dL (12.5-16.0); LYMPH# 1.86 K/mm3 (1.50-4.00); MEAN CELL VOLUME 88 fl (78-100); MEAN CORPUSCULAR HEMOGLOBIN 28 pg (27-31); MEAN CORPUSCULAR HGB CONC 32 g/dL (33-37); MEAN PLATELET VOLUME 9.2 fl (7.4-10.4); MONO # 0.32 K/mm3 (0.20-0.80); NEU # 3.74 K/mm3 (1.40-6.50); PLATELET COUNT 263 K/mm3 (130-400); RED BLOOD COUNT 4.39 M/mm3 (4.10-5.30); WHITE BLOOD COUNT 6.1 K/mm3 (4.8-10.8)
[2021-11-24 12:25] LABS: ALBUMIN 4.2 g/dL (3.5-5.0); POTASSIUM 4.1 mmol/L (3.5-5.1)
[2021-11-24 12:26] LABS: CALCIUM 9.2 mg/dL (8.3-10.5)
[2021-11-24 12:29] LABS: TOTAL BILIRUBIN 0.5 mg/dL (0.2-1.2)
[2021-11-24 12:40] LABS: URINE COLOR YELLOW
[2021-11-24 12:41] LABS: URINE APPEARANCE HAZY; URINE BILIRUBIN NEGATIVE (NEGATIVE); URINE BLOOD NEGATIVE (NEGATIVE); URINE KETONE NEGATIVE (NEGATIVE); URINE LEUKOCYTE ESTERASE TRACE (NEGATIVE); URINE NITRATE NEGATIVE (NEGATIVE); URINE PROTEIN(semi-quant) NEGATIVE (NEGATIVE); URINE UROBILINOGEN NORMAL (NORMAL); URINE WBC 16-30 /hpf (0-3)
[2021-11-24] MEDS ORDERED: MACROBID 100 M100 MG PO (13:26)
[2021-11-24 14:45] VITALS: BP 121/78
[2021-11-27] MEDS ORDERED: FAMOTIDINE20 MG PO (01:07)
[2021-11-27] MEDS ORDERED: MONUROL 3 GM3 G/PKT PO (01:07)
[2021-11-27] MEDS ORDERED: HYDROXYZINE HCL25 M1 PO (01:07)
== END 2021-11-24 15:26 | disposition home or self-care (01) ==
LOC: ED 11:24
PROVIDERS: Physician Assistant
DX: E11.65 Type 2 diabetes mellitus with hyperglycemia (principal); N39.0 Urinary tract infection, site not specified; Z88.0 Allergy status to penicillin
CPT/HCPCS: J0696; J1885; J2550; J7030

== ENCOUNTER 2021-12-01 19:48 | Emergency (ER) | payer MEDICARE, MEDICAID ==
[~2021-12-01] VITALS: Ht 165.1 cm; Wt 127.3 kg
[~2021-12-01 19:48] MED LIST changes: +MONUROL 3 GM3 G/PKT PO
[2021-12-01 20:23] LABS: EOS # 0.12 K/mm3 (0.04-0.40); EOS % 2.1 % (1.0-5.0); HEMATOCRIT 36.4 % (37.0-47.0); HEMOGLOBIN 11.8 g/dL (12.5-16.0); LYMPH# 0.98 K/mm3 (1.50-4.00); MEAN CELL VOLUME 87 fl (78-100); MEAN CORPUSCULAR HEMOGLOBIN 28 pg (27-31); MEAN CORPUSCULAR HGB CONC 32 g/dL (33-37); MEAN PLATELET VOLUME 8.9 fl (7.4-10.4); MONO # 0.55 K/mm3 (0.20-0.80); NEU # 3.97 K/mm3 (1.40-6.50); PLATELET COUNT 255 K/mm3 (130-400); RED BLOOD COUNT 4.17 M/mm3 (4.10-5.30); RED CELL DISTRIBUTION WIDTH 13.1 % (11.5-14.5); WHITE BLOOD COUNT 5.6 K/mm3 (4.8-10.8)
[2021-12-01 20:36] LABS: ALBUMIN 3.9 g/dL (3.5-5.0)
[2021-12-01 20:37] LABS: POTASSIUM 4.6 mmol/L (3.5-5.1)
[2021-12-01 20:38] LABS: CALCIUM 9.2 mg/dL (8.3-10.5)
[2021-12-01 20:39] LABS: TOTAL PROTEIN 6.7 g/dL (6.4-8.3)
[2021-12-01 20:41] LABS: TOTAL BILIRUBIN 0.5 mg/dL (0.2-1.2)
[2021-12-01 22:00] VITALS: BP 120/69
[2021-12-01] MEDS ORDERED: ALBUTEROL2.5 MG/3 M IH (22:01)
[2021-12-01] MEDS ORDERED: HYDROCODONE PO473 ML PO (22:01)
[2021-12-01] MEDS ORDERED: BENZONATATE200 MG PO (22:01)
== END 2021-12-01 22:05 | disposition home or self-care (01) ==
LOC: ED 19:48
PROVIDERS: Physician Assistant
DX: U07.1 COVID-19 (principal); E11.43 Type 2 diabetes mellitus with diabetic autonomic (poly)neuropathy; K31.84 Gastroparesis; Z28.310 Unvaccinated for COVID-19; Z88.6 Allergy status to analgesic agent
CPT/HCPCS: J1885; J2550; J7030

== ENCOUNTER 2021-12-04 12:15 | Emergency (ER) | payer MEDICARE, MEDICAID ==
[~2021-12-04 12:15] MED LIST changes: +BENZONATATE200 MG PO; +HYDROCODONE PO473 ML PO
[2021-12-04 15:15] VITALS: BP 114/77
== END 2021-12-04 15:20 | disposition home or self-care (01) ==
LOC: ED 12:15
DX: E11.65 Type 2 diabetes mellitus with hyperglycemia (principal); Z86.16 Personal history of COVID-19; Z28.310 Unvaccinated for COVID-19; Z79.4 Long term (current) use of insulin
CPT/HCPCS: J1815

== ENCOUNTER 2022-01-04 10:45 | Emergency (ER) | payer MEDICARE, MEDICAID ==
[~2022-01-04] VITALS: Ht 167.6 cm; Wt 124.6 kg
[2022-01-04 11:53] LABS: BASO # 0.01 K/mm3 (0.02-0.10); EOS # 0.32 K/mm3 (0.04-0.40); EOS % 4.6 % (1.0-5.0); HEMATOCRIT 35.8 % (37.0-47.0); HEMOGLOBIN 11.8 g/dL (12.5-16.0); LYMPH# 1.79 K/mm3 (1.50-4.00); MEAN CELL VOLUME 88 fl (78-100); MEAN CORPUSCULAR HEMOGLOBIN 29 pg (27-31); MEAN CORPUSCULAR HGB CONC 33 g/dL (33-37); MEAN PLATELET VOLUME 9.1 fl (7.4-10.4); MONO # 0.38 K/mm3 (0.20-0.80); NEU # 4.49 K/mm3 (1.40-6.50); PLATELET COUNT 237 K/mm3 (130-400); RED BLOOD COUNT 4.09 M/mm3 (4.10-5.30); RED CELL DISTRIBUTION WIDTH 13.7 % (11.5-14.5)
[2022-01-04 11:58] LABS: ALBUMIN 4.1 g/dL (3.5-5.0); POTASSIUM 4.2 mmol/L (3.5-5.1)
[2022-01-04 11:59] LABS: CALCIUM 8.8 mg/dL (8.3-10.5)
[2022-01-04 12:00] LABS: TOTAL PROTEIN 6.8 g/dL (6.4-8.3)
[2022-01-04 12:02] LABS: TOTAL BILIRUBIN 0.5 mg/dL (0.2-1.2)
[2022-01-04 12:26] LABS: URINE APPEARANCE CLEAR; URINE BILIRUBIN NEGATIVE (NEGATIVE); URINE BLOOD NEGATIVE (NEGATIVE); URINE COLOR YELLOW; URINE KETONE NEGATIVE (NEGATIVE); URINE LEUKOCYTE ESTERASE NEGATIVE (NEGATIVE); URINE MUCUS PRESENT (NOT PRESENT); URINE NITRATE NEGATIVE (NEGATIVE); URINE PROTEIN(semi-quant) TRACE (NEGATIVE); URINE UROBILINOGEN NORMAL (NORMAL)
[2022-01-04 13:24] VITALS: BP 136/93
== END 2022-01-04 13:26 | disposition home or self-care (01) ==
LOC: ED 10:45
PROVIDERS: Physician Assistant
DX: E11.65 Type 2 diabetes mellitus with hyperglycemia (principal); Z79.4 Long term (current) use of insulin
CPT/HCPCS: J1815; J7030

== ENCOUNTER 2022-01-15 22:08 | Emergency (ER) | payer MEDICARE, MEDICAID ==
[~2022-01-15] VITALS: Ht 167.6 cm; Wt 124.4 kg
[2022-01-15 23:38] LABS: URINE APPEARANCE CLEAR; URINE COLOR YELLOW
[2022-01-15 23:39] LABS: URINE BILIRUBIN NEGATIVE (NEGATIVE); URINE BLOOD NEGATIVE (NEGATIVE); URINE KETONE 3+ (NEGATIVE); URINE LEUKOCYTE ESTERASE NEGATIVE (NEGATIVE); URINE NITRATE NEGATIVE (NEGATIVE); URINE PROTEIN(semi-quant) TRACE (NEGATIVE); URINE UROBILINOGEN NORMAL (NORMAL)
[2022-01-15 23:44] LABS: POTASSIUM 3.9 mmol/L (3.5-5.1)
[2022-01-15 23:46] LABS: URINE WBC 0-1 /hpf (0-3)
[2022-01-16 00:10] LABS: STREP SCREEN NEGATIVE (NEGATIVE)
[2022-01-16 02:29] LABS: URINE APPEARANCE CLEAR; URINE BILIRUBIN NEGATIVE (NEGATIVE); URINE BLOOD NEGATIVE (NEGATIVE); URINE COLOR YELLOW; URINE GLUCOSE 50 mg/dL (NEGATIVE); URINE KETONE NEGATIVE (NEGATIVE); URINE LEUKOCYTE ESTERASE NEGATIVE (NEGATIVE); URINE NITRATE NEGATIVE (NEGATIVE); URINE PROTEIN(semi-quant) TRACE (NEGATIVE); URINE UROBILINOGEN NORMAL (NORMAL); URINE WBC 0-1 /hpf (0-3)
[2022-01-16 02:52] VITALS: BP 120/84
== END 2022-01-16 02:54 | disposition home or self-care (01) ==
LOC: ED 22:08
PROVIDERS: Family Medicine
DX: E11.10 Type 2 diabetes mellitus with ketoacidosis without coma (principal); Z96.41 Presence of insulin pump (external) (internal)
CPT/HCPCS: J1815; J7030

== ENCOUNTER 2022-01-18 20:44 | Emergency (ER) | payer MEDICARE, MEDICAID ==
[~2022-01-18] VITALS: Ht 167.6 cm; Wt 124.2 kg
[2022-01-18 22:18] LABS: BASO # 0.02 K/mm3 (0.02-0.10); EOS # 0.63 K/mm3 (0.04-0.40); EOS % 7.5 % (1.0-5.0); HEMATOCRIT 38.5 % (37.0-47.0); HEMOGLOBIN 12.5 g/dL (12.5-16.0); LYMPH# 2.84 K/mm3 (1.50-4.00); MEAN CELL VOLUME 89 fl (78-100); MEAN CORPUSCULAR HEMOGLOBIN 29 pg (27-31); MEAN CORPUSCULAR HGB CONC 33 g/dL (33-37); MEAN PLATELET VOLUME 9.2 fl (7.4-10.4); MONO # 0.49 K/mm3 (0.20-0.80); NEU # 4.46 K/mm3 (1.40-6.50); PLATELET COUNT 281 K/mm3 (130-400); RED BLOOD COUNT 4.32 M/mm3 (4.10-5.30); RED CELL DISTRIBUTION WIDTH 13.7 % (11.5-14.5); WHITE BLOOD COUNT 8.4 K/mm3 (4.8-10.8)
[2022-01-18 22:25] LABS: ALBUMIN 4.3 g/dL (3.5-5.0); POTASSIUM 4.1 mmol/L (3.5-5.1)
[2022-01-18 22:28] LABS: TOTAL PROTEIN 6.8 g/dL (6.4-8.3)
[2022-01-18 22:30] LABS: TOTAL BILIRUBIN 0.3 mg/dL (0.2-1.2)
[2022-01-18 22:39] LABS: URINE APPEARANCE HAZY; URINE COLOR AMBER
[2022-01-18 22:40] LABS: URINE BILIRUBIN NEGATIVE (NEGATIVE); URINE BLOOD NEGATIVE (NEGATIVE); URINE KETONE NEGATIVE (NEGATIVE); URINE LEUKOCYTE ESTERASE NEGATIVE (NEGATIVE); URINE PROTEIN(semi-quant) NEGATIVE (NEGATIVE); URINE UROBILINOGEN NORMAL (NORMAL)
[2022-01-18 23:40] VITALS: BP 114/82
== END 2022-01-18 23:43 | disposition home or self-care (01) ==
LOC: ED 20:44
PROVIDERS: Nurse Practitioner
DX: E11.65 Type 2 diabetes mellitus with hyperglycemia (principal); Z79.4 Long term (current) use of insulin
CPT/HCPCS: J1815; J7030

== ENCOUNTER 2022-02-22 14:51 | Emergency (ER) | payer MEDICARE, MEDICAID ==
[~2022-02-22] VITALS: Ht 167.6 cm; Wt 123.4 kg
[2022-02-22 17:13] VITALS: BP 115/80
== END 2022-02-22 17:05 | disposition home or self-care (01) ==
LOC: ED 14:51
DX: G43.909 Migraine, unspecified, not intractable, without status migrainosus (principal); E11.9 Type 2 diabetes mellitus without complications; Z96.41 Presence of insulin pump (external) (internal)
CPT/HCPCS: J1200; J2550; J7030

== ENCOUNTER 2022-03-06 18:51 | Emergency (ER) | payer MEDICARE, MEDICAID ==
[~2022-03-06] VITALS: Wt 123.2 kg
[2022-03-06 19:35] LABS: POTASSIUM 4.1 mmol/L (3.5-5.1)
[2022-03-06 19:37] LABS: CALCIUM 8.6 mg/dL (8.3-10.5)
[2022-03-06 20:25] LABS: PH-URINE 5.5 (5.0 - 8.0); URINE APPEARANCE CLEAR; URINE BILIRUBIN NEGATIVE (NEGATIVE); URINE BLOOD NEGATIVE (NEGATIVE); URINE COLOR YELLOW; URINE KETONE NEGATIVE (NEGATIVE); URINE LEUKOCYTE ESTERASE NEGATIVE (NEGATIVE); URINE NITRATE NEGATIVE (NEGATIVE); URINE PROTEIN(semi-quant) TRACE (NEGATIVE); URINE UROBILINOGEN NORMAL (NORMAL)
[2022-03-06 20:27] LABS: URINE WBC 0-1 /hpf (0-3)
[2022-03-06 21:09] VITALS: BP 142/89
== END 2022-03-06 21:09 | disposition home or self-care (01) ==
LOC: ED 18:51
PROVIDERS: Family Medicine
DX: E11.649 Type 2 diabetes mellitus with hypoglycemia without coma (principal); E11.22 Type 2 diabetes mellitus with diabetic chronic kidney disease; N18.9 Chronic kidney disease, unspecified

== ENCOUNTER 2022-03-20 19:18 | Emergency (ER) | payer MEDICARE, MEDICAID ==
[~2022-03-20] VITALS: Ht 167.6 cm; Wt 129.3 kg
[2022-03-20 20:44] VITALS: BP 119/89
== END 2022-03-20 20:46 | disposition home or self-care (01) ==
LOC: ED 19:18
DX: S00.03XA Contusion of scalp, initial encounter (principal); Y04.8XXA Assault by other bodily force, initial encounter

== ENCOUNTER 2022-03-30 18:19 | Emergency (ER) | payer MEDICARE, MEDICAID ==
[~2022-03-30] VITALS: Wt 133.7 kg
[2022-03-30 19:19] LABS: URINE WBC 0 /hpf (0-3)
[2022-03-30 19:21] LABS: EOS # 0.44 K/mm3 (0.04-0.40); EOS % 5.8 % (1.0-5.0); HEMATOCRIT 38.2 % (37.0-47.0); HEMOGLOBIN 12.3 g/dL (12.5-16.0); LYMPH# 2.41 K/mm3 (1.50-4.00); MEAN CELL VOLUME 93 fl (78-100); MEAN CORPUSCULAR HEMOGLOBIN 30 pg (27-31); MEAN CORPUSCULAR HGB CONC 32 g/dL (33-37); MONO # 0.43 K/mm3 (0.20-0.80); NEU # 4.29 K/mm3 (1.40-6.50); PLATELET COUNT 258 K/mm3 (130-400); RED BLOOD COUNT 4.09 M/mm3 (4.10-5.30); RED CELL DISTRIBUTION WIDTH 12.2 % (11.5-14.5); WHITE BLOOD COUNT 7.6 K/mm3 (4.8-10.8)
[2022-03-30 19:28] LABS: URINE APPEARANCE CLEAR; URINE BILIRUBIN NEGATIVE (NEGATIVE); URINE BLOOD NEGATIVE (NEGATIVE); URINE COLOR YELLOW; URINE KETONE NEGATIVE (NEGATIVE); URINE LEUKOCYTE ESTERASE NEGATIVE (NEGATIVE); URINE NITRATE NEGATIVE (NEGATIVE); URINE PROTEIN(semi-quant) NEGATIVE (NEGATIVE); URINE UROBILINOGEN NORMAL (NORMAL)
[2022-03-30 19:29] LABS: POTASSIUM 4.5 mmol/L (3.5-5.1)
[2022-03-30 19:30] LABS: CALCIUM 8.7 mg/dL (8.3-10.5)
[2022-03-30 19:31] LABS: TOTAL PROTEIN 6.8 g/dL (6.4-8.3)
[2022-03-30 19:33] LABS: TOTAL BILIRUBIN 0.3 mg/dL (0.2-1.2)
[2022-03-30 21:22] VITALS: BP 134/82
== END 2022-03-30 20:47 | disposition home or self-care (01) ==
LOC: ED 18:19
PROVIDERS: Family Medicine
DX: E11.65 Type 2 diabetes mellitus with hyperglycemia (principal); E11.22 Type 2 diabetes mellitus with diabetic chronic kidney disease; N18.9 Chronic kidney disease, unspecified; R51.9 Headache, unspecified; E66.01 Morbid (severe) obesity due to excess calories; Z88.6 Allergy status to analgesic agent; Z79.4 Long term (current) use of insulin
CPT/HCPCS: J1885; J2550

== ENCOUNTER 2022-04-27 15:41 | Emergency (ER) | payer MEDICARE, MEDICAID ==
[~2022-04-27] VITALS: Ht 167.6 cm; Wt 129.3 kg
[2022-04-27 18:06] VITALS: BP 107/87
== END 2022-04-27 17:55 | disposition home or self-care (01) ==
LOC: ED 15:41
DX: G43.909 Migraine, unspecified, not intractable, without status migrainosus (principal); Z88.6 Allergy status to analgesic agent
CPT/HCPCS: J0780; J1885

== ENCOUNTER 2022-05-14 21:12 | Emergency (ER) | payer MEDICARE, MEDICAID ==
[~2022-05-14] VITALS: Ht 167.6 cm; Wt 129.1 kg
[2022-05-14 22:39] VITALS: BP 133/86
== END 2022-05-14 22:40 | disposition home or self-care (01) ==
LOC: ED 21:12
DX: E11.65 Type 2 diabetes mellitus with hyperglycemia (principal); F41.9 Anxiety disorder, unspecified; Z96.41 Presence of insulin pump (external) (internal)

== ENCOUNTER 2022-05-28 21:54 | Emergency (ER) | payer MEDICARE, MEDICAID ==
[~2022-05-28] VITALS: Ht 167.6 cm; Wt 137.0 kg
[2022-05-28 22:58] VITALS: BP 103/85
== END 2022-05-29 00:22 | disposition home or self-care (01) ==
LOC: ED 21:54
DX: S00.03XA Contusion of scalp, initial encounter (principal); E11.9 Type 2 diabetes mellitus without complications; Z96.41 Presence of insulin pump (external) (internal); Z88.6 Allergy status to analgesic agent; W06.XXXA Fall from bed, initial encounter; W22.8XXA Striking against or struck by other objects, initial encounter; Y92.009 Unspecified place in unspecified non-institutional (private) residence as the place of occurrence of the external cause

== ENCOUNTER 2022-09-06 08:00 | Outpatient (RCR) | payer MEDICARE, MEDICAID ==
[~2022-09-06 08:00] MED LIST changes: -INVEGA6 MG; +INVEGA6 MG PO; +RIZATRIPTAN BEN10 M1 PO; +ZITHROMAX TRI-500 MG PO
[2022-09-16] MEDS ORDERED: FEXOFENADINE H180 M1 PO (08:19)
[2022-10-08] MEDS ORDERED: ASENAPINE MALEA10 MG SL (00:55)
[2022-10-10] MEDS ORDERED: [UNRECOGNIZED DRUG - OTHER] MC (16:07)
== END 2022-10-06 | disposition home or self-care (01) ==
LOC: PT
DX: M54.50 Low back pain, unspecified (principal)

== ENCOUNTER 2022-11-08 18:00 | Emergency (ER) | payer MEDICARE, MEDICAID ==
[~2022-11-08] VITALS: Ht 167.6 cm; Wt 150.3 kg
[~2022-11-08 18:00] MED LIST changes: +ASENAPINE MALEA10 MG SL; +FEXOFENADINE H180 M1 PO; +[UNRECOGNIZED DRUG - OTHER] MC
[2022-11-08 19:10] LABS: BASO # 0.02 K/mm3 (0.02-0.10); EOS % 4.1 % (1.0-5.0); HEMATOCRIT 37.7 % (37.0-47.0); HEMOGLOBIN 11.9 g/dL (12.5-16.0); LYMPH# 2.68 K/mm3 (1.50-4.00); MEAN CELL VOLUME 90 fl (78-100); MEAN CORPUSCULAR HEMOGLOBIN 28 pg (27-31); MEAN CORPUSCULAR HGB CONC 32 g/dL (33-37); MEAN PLATELET VOLUME 8.8 fl (7.4-10.4); MONO # 0.56 K/mm3 (0.20-0.80); NEU # 5.98 K/mm3 (1.40-6.50); PLATELET COUNT 290 K/mm3 (130-400); RED BLOOD COUNT 4.19 M/mm3 (4.10-5.30); WHITE BLOOD COUNT 9.7 K/mm3 (4.8-10.8)
[2022-11-08 19:15] LABS: ALBUMIN 3.9 g/dL (3.5-5.0); POTASSIUM 3.6 mmol/L (3.5-5.1)
[2022-11-08 19:16] LABS: CALCIUM 8.5 mg/dL (8.3-10.5)
[2022-11-08 19:19] LABS: TOTAL BILIRUBIN 0.2 mg/dL (0.2-1.2)
[2022-11-08 19:31] LABS: D-DIMER 0.42 mg/L FEU (0.15-0.50)
[2022-11-08 20:07] VITALS: BP 119/83
== END 2022-11-08 20:07 | disposition home or self-care (01) ==
LOC: ED 18:00
PROVIDERS: Physician Assistant
DX: R07.89 Other chest pain (principal)
CPT/HCPCS: J2270

== ENCOUNTER 2022-11-20 13:45 | Emergency (ER) | payer MEDICARE, MEDICAID ==
[~2022-11-20] VITALS: Wt 150.2 kg
[2022-11-20 14:31] LABS: EOS # 0.35 K/mm3 (0.04-0.40); EOS % 3.6 % (1.0-5.0); HEMATOCRIT 36.8 % (37.0-47.0); HEMOGLOBIN 11.8 g/dL (12.5-16.0); LYMPH# 1.86 K/mm3 (1.50-4.00); MEAN CELL VOLUME 90 fl (78-100); MEAN CORPUSCULAR HEMOGLOBIN 29 pg (27-31); MEAN CORPUSCULAR HGB CONC 32 g/dL (33-37); MEAN PLATELET VOLUME 9.1 fl (7.4-10.4); MONO # 0.53 K/mm3 (0.20-0.80); NEU # 6.95 K/mm3 (1.40-6.50); PLATELET COUNT 266 K/mm3 (130-400); RED BLOOD COUNT 4.09 M/mm3 (4.10-5.30); RED CELL DISTRIBUTION WIDTH 13.1 % (11.5-14.5); WHITE BLOOD COUNT 9.7 K/mm3 (4.8-10.8)
[2022-11-20 14:36] LABS: ALBUMIN 3.8 g/dL (3.5-5.0); POTASSIUM 3.8 mmol/L (3.5-5.1)
[2022-11-20 14:37] LABS: CALCIUM 8.9 mg/dL (8.3-10.5)
[2022-11-20 14:38] LABS: TOTAL PROTEIN 6.9 g/dL (6.4-8.3)
[2022-11-20 14:40] LABS: TOTAL BILIRUBIN 0.3 mg/dL (0.2-1.2)
[2022-11-20 15:02] LABS: URINE APPEARANCE CLEAR; URINE COLOR YELLOW
[2022-11-20 15:03] LABS: URINE BILIRUBIN NEGATIVE (NEGATIVE); URINE BLOOD NEGATIVE (NEGATIVE); URINE GLUCOSE NEGATIVE (NEGATIVE); URINE KETONE 2+ (NEGATIVE); URINE LEUKOCYTE ESTERASE NEGATIVE (NEGATIVE); URINE NITRATE NEGATIVE (NEGATIVE); URINE PROTEIN(semi-quant) NEGATIVE (NEGATIVE); URINE UROBILINOGEN NORMAL (NORMAL)
[2022-11-20 15:04] LABS: URINE WBC 0-1 /hpf (0-3)
[2022-11-20 15:54] VITALS: BP 107/64
== END 2022-11-20 15:55 | disposition home or self-care (01) ==
LOC: ED 13:45
PROVIDERS: Physician Assistant
DX: E11.65 Type 2 diabetes mellitus with hyperglycemia (principal); R51.9 Headache, unspecified; R11.0 Nausea; Z79.4 Long term (current) use of insulin
CPT/HCPCS: J7040

== ENCOUNTER 2022-11-22 15:40 | Emergency (ER) | payer MEDICARE, MEDICAID ==
[~2022-11-22] VITALS: Wt 150.2 kg
[2022-11-22 17:15] VITALS: BP 122/83
== END 2022-11-22 17:15 | disposition home or self-care (01) ==
LOC: ED 15:40
DX: G43.909 Migraine, unspecified, not intractable, without status migrainosus (principal); Z79.899 Other long term (current) drug therapy
CPT/HCPCS: J1885; J2550

== ENCOUNTER 2022-11-28 15:32 | Emergency (ER) | payer MEDICARE, MEDICAID ==
[~2022-11-28] VITALS: Ht 167.6 cm; Wt 151.2 kg
[2022-11-28 20:05] VITALS: BP 133/73
== END 2022-11-28 20:05 | disposition home or self-care (01) ==
LOC: ED 15:32
DX: G43.909 Migraine, unspecified, not intractable, without status migrainosus (principal); R00.0 Tachycardia, unspecified
CPT/HCPCS: J1885; J2550

== ENCOUNTER 2022-12-02 15:38 | Emergency (ER) | payer MEDICARE, MEDICAID ==
[~2022-12-02] VITALS: Ht 162.6 cm; Wt 136.4 kg
[2022-12-02 17:23] LABS: HEMATOCRIT 40.4 % (37.0-47.0); MEAN CELL VOLUME 89 fl (78-100); MEAN CORPUSCULAR HEMOGLOBIN 29 pg (27-31); MEAN CORPUSCULAR HGB CONC 32 g/dL (33-37); MEAN PLATELET VOLUME 8.8 fl (7.4-10.4); PLATELET COUNT 261 K/mm3 (130-400); RED BLOOD COUNT 4.56 M/mm3 (4.10-5.30); RED CELL DISTRIBUTION WIDTH 13.1 % (11.5-14.5)
[2022-12-02 17:24] LABS: ALBUMIN 4.1 g/dL (3.5-5.0)
[2022-12-02 17:27] LABS: TOTAL PROTEIN 7.4 g/dL (6.4-8.3)
[2022-12-02 17:29] LABS: TOTAL BILIRUBIN 0.5 mg/dL (0.2-1.2)
[2022-12-02 18:12] LABS: BAND 6 % (0-10); LYMPHOCYTE 2 % (20-51); MONOCYTE 1 % (3-10); NEUTROPHILS 91 % (42-75)
[2022-12-02 20:25] LABS: URINE WBC 0 /hpf (0-3)
[2022-12-02 20:35] LABS: URINE APPEARANCE HAZY; URINE BILIRUBIN NEGATIVE (NEGATIVE); URINE BLOOD NEGATIVE (NEGATIVE); URINE COLOR YELLOW; URINE GLUCOSE NEGATIVE (NEGATIVE); URINE KETONE NEGATIVE (NEGATIVE); URINE LEUKOCYTE ESTERASE NEGATIVE (NEGATIVE); URINE NITRATE NEGATIVE (NEGATIVE); URINE PROTEIN(semi-quant) TRACE (NEGATIVE); URINE UROBILINOGEN NORMAL (NORMAL)
[2022-12-02 20:39] LABS: URINE MUCUS PRESENT (NOT PRESENT)
[2022-12-02 21:45] LABS: CALCIUM 8.7 mg/dL (8.3-10.5)
[2022-12-03 07:16] LABS: CALCIUM 8.2 mg/dL (8.3-10.5)
[2022-12-03] MEDS ORDERED: ZOFRAN ODT4 MG PO (07:38)
[2022-12-03 08:07] VITALS: BP 95/66
== END 2022-12-03 08:10 | disposition home or self-care (01) ==
LOC: ED 15:38
PROVIDERS: Family Medicine; Physician Assistant
DX: R11.2 Nausea with vomiting, unspecified (principal); R19.7 Diarrhea, unspecified
CPT/HCPCS: J7030; J7040

== ENCOUNTER 2023-01-16 11:33 | Emergency (ER) | payer MEDICARE, MEDICAID ==
[~2023-01-16] VITALS: Wt 151.3 kg
[2023-01-16] MEDS ORDERED: MINIPRESS5 M1 PO (12:26)
[2023-01-16 12:54] LABS: BASO # 0.01 K/mm3 (0.02-0.10); EOS % 6.4 % (1.0-5.0); HEMATOCRIT 39.2 % (37.0-47.0); HEMOGLOBIN 12.2 g/dL (12.5-16.0); LYMPH# 2.09 K/mm3 (1.50-4.00); MEAN CELL VOLUME 92 fl (78-100); MEAN CORPUSCULAR HEMOGLOBIN 29 pg (27-31); MEAN CORPUSCULAR HGB CONC 31 g/dL (33-37); MEAN PLATELET VOLUME 8.9 fl (7.4-10.4); MONO # 0.51 K/mm3 (0.20-0.80); NEU # 4.64 K/mm3 (1.40-6.50); PLATELET COUNT 260 K/mm3 (130-400); RED BLOOD COUNT 4.25 M/mm3 (4.10-5.30); RED CELL DISTRIBUTION WIDTH 13.3 % (11.5-14.5); WHITE BLOOD COUNT 7.8 K/mm3 (4.8-10.8)
[2023-01-16 13:00] LABS: CALCIUM 8.8 mg/dL (8.3-10.5)
[2023-01-16 13:01] LABS: TOTAL PROTEIN 6.8 g/dL (6.4-8.3)
[2023-01-16 13:03] LABS: TOTAL BILIRUBIN 0.3 mg/dL (0.2-1.2)
[2023-01-16 13:37] LABS: PH-URINE 5.5 (5.0 - 8.0); URINE APPEARANCE CLOUDY; URINE BILIRUBIN NEGATIVE (NEGATIVE); URINE BLOOD NEGATIVE (NEGATIVE); URINE COLOR YELLOW; URINE GLUCOSE NEGATIVE (NEGATIVE); URINE KETONE NEGATIVE (NEGATIVE); URINE LEUKOCYTE ESTERASE NEGATIVE (NEGATIVE); URINE NITRATE NEGATIVE (NEGATIVE); URINE PROTEIN(semi-quant) NEGATIVE (NEGATIVE)
[2023-01-16] MEDS ORDERED: PYRIDIUM100 M1 PO (14:19)
[2023-01-16] MEDS ORDERED: CIPRO500 M1 PO (14:19)
[2023-01-16 14:29] VITALS: BP 122/92
== END 2023-01-16 14:36 | disposition home or self-care (01) ==
LOC: ED 11:33
PROVIDERS: Physician Assistant
DX: N39.0 Urinary tract infection, site not specified (principal)

== ENCOUNTER 2023-03-02 17:28 | Emergency (ER) | payer MEDICARE, MEDICAID ==
[~2023-03-02 17:28] MED LIST changes: +CIPRO500 M1 PO
[2023-03-02 19:08] VITALS: BP 127/98
== END 2023-03-02 19:08 | disposition home or self-care (01) ==
LOC: ED 17:28
DX: G43.909 Migraine, unspecified, not intractable, without status migrainosus (principal)
CPT/HCPCS: J1885

== ENCOUNTER 2023-03-09 18:13 | Emergency (ER) | payer MEDICARE, MEDICAID ==
[~2023-03-09] VITALS: Ht 167.6 cm; Wt 145.8 kg
[2023-03-09 19:45] LABS: BASO # 0.01 K/mm3 (0.02-0.10); EOS # 0.52 K/mm3 (0.04-0.40); EOS % 6.4 % (1.0-5.0); HEMATOCRIT 40.5 % (37.0-47.0); HEMOGLOBIN 12.9 g/dL (12.5-16.0); MEAN CELL VOLUME 90 fl (78-100); MEAN CORPUSCULAR HEMOGLOBIN 29 pg (27-31); MEAN CORPUSCULAR HGB CONC 32 g/dL (33-37); MEAN PLATELET VOLUME 9.3 fl (7.4-10.4); MONO # 0.55 K/mm3 (0.20-0.80); NEU # 4.54 K/mm3 (1.40-6.50); PLATELET COUNT 232 K/mm3 (130-400); RED BLOOD COUNT 4.51 M/mm3 (4.10-5.30); RED CELL DISTRIBUTION WIDTH 12.9 % (11.5-14.5); WHITE BLOOD COUNT 8.1 K/mm3 (4.8-10.8)
[2023-03-09 19:55] LABS: ALBUMIN 4.3 g/dL (3.5-5.0)
[2023-03-09 19:56] LABS: SODIUM 140 mmol/L (136-145)
[2023-03-09 19:57] LABS: CALCIUM 9.1 mg/dL (8.3-10.5)
[2023-03-09 19:58] LABS: GLUCOSE 207 mg/dL (65-105); TOTAL PROTEIN 7.4 g/dL (6.4-8.3)
[2023-03-09 19:59] LABS: CARBON DIOXIDE 19 mmol/L (22-29)
[2023-03-09 20:00] LABS: TOTAL BILIRUBIN 0.28 mg/dL (0.2-1.2)
[2023-03-09 20:04] LABS: AST-SGOT 10 U/L (5-34)
[2023-03-09 20:05] LABS: ALT/SGPT 7 U/L (0-55)
[2023-03-09 20:11] LABS: TROPONIN-I < 0.030 ng/mL (0.00-0.033)
[2023-03-09 21:53] VITALS: BP 94/69
== END 2023-03-09 21:30 | disposition home or self-care (01) ==
LOC: ED 18:13
PROVIDERS: Physician Assistant
DX: R07.81 Pleurodynia (principal); R05.9 Cough, unspecified

== ENCOUNTER 2023-04-03 18:55 | Emergency (ER) | payer MEDICARE, MEDICAID ==
[~2023-04-03] VITALS: Ht 167.6 cm; Wt 147.4 kg
[2023-04-03] MEDS ORDERED: Ketorolac 30 MG/ML VIAL IM ONE (19:30)
[2023-04-03 20:35] VITALS: BP 133/86
== END 2023-04-03 20:35 | disposition home or self-care (01) ==
LOC: ED 18:55
DX: M25.532 Pain in left wrist (principal); M79.645 Pain in left finger(s); W01.0XXA Fall on same level from slipping, tripping and stumbling without subsequent striking against object, initial encounter
CPT/HCPCS: J1885

== ENCOUNTER → 2023-07-24 | Outpatient (CLI) | payer MEDICARE, MEDICAID | LOC: RAD 10:11 | DX: M19.071 Primary osteoarthritis, right ankle and foot (principal); M25.561 Pain in right knee; M25.572 Pain in left ankle and joints of left foot ==

== ENCOUNTER 2023-08-20 18:56 | Emergency (ER) | payer MEDICARE, MEDICAID ==
[2023-08-20 19:07] VITALS: BP 147/94
== END 2023-08-20 19:33 | disposition home or self-care (01) ==
LOC: ED 18:56
DX: S60.551A Superficial foreign body of right hand, initial encounter (principal); W45.8XXA Other foreign body or object entering through skin, initial encounter; Y93.01 Activity, walking, marching and hiking

== ENCOUNTER 2023-10-01 17:13 | Emergency (ER) | payer MEDICARE, MEDICAID ==
[~2023-10-01] VITALS: Ht 172.7 cm; Wt 162.3 kg
[2023-10-01] MEDS ORDERED: Mag/Al Hydrox/Simeth Susp 30 ML CUP PO ONE (18:15)
[2023-10-01 18:39] VITALS: BP 180/80
== END 2023-10-01 18:47 | disposition home or self-care (01) ==
LOC: ED 17:13
DX: K21.9 Gastro-esophageal reflux disease without esophagitis (principal); Z79.899 Other long term (current) drug therapy

== ENCOUNTER 2023-10-16 12:37 | Emergency (ER) | payer MEDICARE, MEDICAID ==
[~2023-10-16] VITALS: Ht 167.6 cm; Wt 162.5 kg
[2023-10-16] MEDS ORDERED: NS 1,000 ML IV SCH (13:15)
[2023-10-16] MEDS ORDERED: Ondansetron 4 MG/2 ML VIAL IV ONE (13:15)
[2023-10-16] MEDS ORDERED: OZEMPIC0.25 MG/02 SQ (13:43)
[2023-10-16 15:45] VITALS: BP 111/89
== END 2023-10-16 15:49 | disposition home or self-care (01) ==
LOC: ED 12:37
DX: E11.65 Type 2 diabetes mellitus with hyperglycemia (principal); R11.0 Nausea
CPT/HCPCS: J2405; J7030

== ENCOUNTER 2023-10-17 18:01 | Emergency (ER) | payer MEDICARE, MEDICAID ==
[~2023-10-17] VITALS: Ht 167.6 cm; Wt 162.1 kg
[~2023-10-17 18:01] MED LIST changes: +OZEMPIC0.25 MG/02 SQ
[2023-10-17 18:31] VITALS: BP 125/107
== END 2023-10-17 18:30 | disposition home or self-care (01) ==
LOC: ED 18:01
DX: M54.42 Lumbago with sciatica, left side (principal)

== ENCOUNTER 2023-10-22 18:02 | Emergency (ER) | payer MEDICARE, MEDICAID ==
[~2023-10-22] VITALS: Ht 160 cm; Wt 162.5 kg
[2023-10-22] MEDS ORDERED: PAXLOVID 300-11 EACH PO (19:44)
[2023-10-22 19:55] VITALS: BP 138/89
== END 2023-10-22 19:57 | disposition home or self-care (01) ==
LOC: ED 18:02
DX: U07.1 COVID-19 (principal); R05.9 Cough, unspecified; R09.81 Nasal congestion; R11.10 Vomiting, unspecified; E66.01 Morbid (severe) obesity due to excess calories; Z73.0 Burn-out

== ENCOUNTER → 2024-01-01 | Outpatient (REF) | payer MEDICARE, MEDICAID ==
[~2024-01-01] MED LIST changes: +PAXLOVID 300-11 EACH PO; +SAPHRIS5 MG SL
== END ==
LOC: LAB 18:31
DX: J01.90 Acute sinusitis, unspecified (principal); Z20.822 Contact with and (suspected) exposure to COVID-19

== ENCOUNTER 2024-01-04 18:34 | Emergency (ER) | payer MEDICARE, MEDICAID ==
[~2024-01-04] VITALS: Ht 167.6 cm; Wt 161.5 kg
[~2024-01-04 18:34] MED LIST changes: -SAPHRIS5 MG SL
[2024-01-04] MEDS ORDERED: SAPHRIS5 MG SL (18:50)
[2024-01-04 19:05] LABS: EOS # 0.43 K/mm3 (0.04-0.40); EOS % 5.4 % (1.0-5.0); HEMATOCRIT 39.2 % (37.0-47.0); HEMOGLOBIN 12.3 g/dL (12.5-16.0); LYMPH# 2.32 K/mm3 (1.50-4.00); MEAN CELL VOLUME 91 fl (78-100); MEAN CORPUSCULAR HEMOGLOBIN 29 pg (27-31); MEAN CORPUSCULAR HGB CONC 31 g/dL (33-37); MEAN PLATELET VOLUME 8.7 fl (7.4-10.4); MONO # 0.55 K/mm3 (0.20-0.80); NEU # 4.63 K/mm3 (1.40-6.50); PLATELET COUNT 268 K/mm3 (130-400); RED BLOOD COUNT 4.29 M/mm3 (4.10-5.30); RED CELL DISTRIBUTION WIDTH 13.9 % (11.5-14.5); WHITE BLOOD COUNT 7.9 K/mm3 (4.8-10.8)
[2024-01-04 19:11] LABS: ALBUMIN 3.9 g/dL (3.5-5.0)
[2024-01-04 19:12] LABS: SODIUM 141 mmol/L (136-145)
[2024-01-04 19:13] LABS: CALCIUM 9.1 mg/dL (8.3-10.5)
[2024-01-04 19:14] LABS: GLUCOSE 132 mg/dL (65-105); TOTAL PROTEIN 6.1 g/dL (6.4-8.3)
[2024-01-04 19:15] LABS: CARBON DIOXIDE 21 mmol/L (22-29)
[2024-01-04 19:16] LABS: TOTAL BILIRUBIN 0.3 mg/dL (0.2-1.2)
[2024-01-04 19:19] LABS: AST-SGOT 15 U/L (5-34)
[2024-01-04 19:21] LABS: ALT/SGPT 16 U/L (0-55)
[2024-01-04 19:27] LABS: TROPONIN-I < 0.030 ng/mL (0.00-0.033)
[2024-01-04] MEDS ORDERED: Ketorolac 30 MG/ML VIAL IM ONE (20:00)
[2024-01-04 20:58] VITALS: BP 130/95
== END 2024-01-04 20:59 | disposition home or self-care (01) ==
LOC: ED 18:34
PROVIDERS: Nurse Practitioner Family
DX: R07.81 Pleurodynia (principal); D64.9 Anemia, unspecified; E66.01 Morbid (severe) obesity due to excess calories; Z88.8 Allergy status to other drugs, medicaments and biological substances; Z68.43 Body mass index [BMI] 50.0-59.9, adult
CPT/HCPCS: J1885

== ENCOUNTER 2024-01-10 20:54 | Emergency (ER) | payer MEDICARE, MEDICAID ==
[~2024-01-10] VITALS: Ht 167.6 cm; Wt 161.3 kg
[~2024-01-10 20:54] MED LIST changes: +SAPHRIS5 MG SL
[2024-01-10] MEDS ORDERED: Albuterol 90 MCG/PUFF MDI IH ONE (21:45)
[2024-01-10 21:50] LABS: BASO # 0.01 K/mm3 (0.02-0.10); EOS # 0.72 K/mm3 (0.04-0.40); EOS % 8.3 % (1.0-5.0); HEMATOCRIT 38.1 % (37.0-47.0); HEMOGLOBIN 12.1 g/dL (12.5-16.0); LYMPH# 2.27 K/mm3 (1.50-4.00); MEAN CELL VOLUME 91 fl (78-100); MEAN CORPUSCULAR HEMOGLOBIN 29 pg (27-31); MEAN CORPUSCULAR HGB CONC 32 g/dL (33-37); MEAN PLATELET VOLUME 8.8 fl (7.4-10.4); MONO # 0.56 K/mm3 (0.20-0.80); NEU # 5.11 K/mm3 (1.40-6.50); PLATELET COUNT 264 K/mm3 (130-400); RED BLOOD COUNT 4.17 M/mm3 (4.10-5.30); RED CELL DISTRIBUTION WIDTH 13.8 % (11.5-14.5); WHITE BLOOD COUNT 8.7 K/mm3 (4.8-10.8)
[2024-01-10 21:59] LABS: CALCIUM 8.9 mg/dL (8.3-10.5)
[2024-01-10 22:00] LABS: TOTAL PROTEIN 6.6 g/dL (6.4-8.3)
[2024-01-10] MEDS ORDERED: Benzonatate 100 MG CAP PO ONE (22:00)
[2024-01-10 22:02] LABS: TOTAL BILIRUBIN 0.2 mg/dL (0.2-1.2)
[2024-01-10] MEDS ORDERED: IPRATROPIUM BROM3 M1 IH (22:13)
[2024-01-10] MEDS ORDERED: AZITHROMYCIN 250MGPK PO (22:14)
[2024-01-10 22:22] VITALS: BP 111/75
== END 2024-01-10 22:29 | disposition home or self-care (01) ==
LOC: ED 20:54
PROVIDERS: Nurse Practitioner
DX: J40 Bronchitis, not specified as acute or chronic (principal)

== ENCOUNTER 2024-01-15 18:51 | Emergency (ER) | payer MEDICARE, MEDICAID ==
[~2024-01-15] VITALS: Ht 167.6 cm; Wt 159.1 kg
[2024-01-15] MEDS ORDERED: Albuterol 90 MCG/PUFF MDI IH ONE (19:15)
[2024-01-15 19:25] LABS: BASO # 0.03 K/mm3 (0.02-0.10); EOS # 0.73 K/mm3 (0.04-0.40); HEMATOCRIT 40.5 % (37.0-47.0); HEMOGLOBIN 12.7 g/dL (12.5-16.0); LYMPH# 3.04 K/mm3 (1.50-4.00); MEAN CELL VOLUME 91 fl (78-100); MEAN CORPUSCULAR HEMOGLOBIN 28 pg (27-31); MEAN CORPUSCULAR HGB CONC 31 g/dL (33-37); MEAN PLATELET VOLUME 8.8 fl (7.4-10.4); NEU # 5.98 K/mm3 (1.40-6.50); PLATELET COUNT 286 K/mm3 (130-400); RED BLOOD COUNT 4.47 M/mm3 (4.10-5.30); RED CELL DISTRIBUTION WIDTH 13.5 % (11.5-14.5); WHITE BLOOD COUNT 10.4 K/mm3 (4.8-10.8)
[2024-01-15 19:32] LABS: ALBUMIN 4.2 g/dL (3.5-5.0); SODIUM 142 mmol/L (136-145)
[2024-01-15 19:33] LABS: CALCIUM 9.3 mg/dL (8.3-10.5)
[2024-01-15 19:34] LABS: GLUCOSE 110 mg/dL (65-105)
[2024-01-15 19:35] LABS: CARBON DIOXIDE 20 mmol/L (22-29)
[2024-01-15 19:36] LABS: TOTAL BILIRUBIN 0.4 mg/dL (0.2-1.2)
[2024-01-15 19:38] LABS: ALCOHOL IN-HOUSE < 10 mg/dL (<10)
[2024-01-15 19:40] LABS: AST-SGOT 17 U/L (5-34)
[2024-01-15 19:41] LABS: ALT/SGPT 16 U/L (0-55)
[2024-01-15 19:43] LABS: ACETAMINOPHEN < 1 ug/mL
[2024-01-15 21:57] VITALS: BP 135/92
== END 2024-01-15 22:03 ==
LOC: ED 18:51
PROVIDERS: Physician Assistant
DX: R45.851 Suicidal ideations (principal); R44.1 Visual hallucinations; J45.909 Unspecified asthma, uncomplicated; E10.9 Type 1 diabetes mellitus without complications; Z79.4 Long term (current) use of insulin

== ENCOUNTER 2024-02-01 15:13 | Emergency (ER) | payer MEDICARE, MEDICAID ==
[~2024-02-01] VITALS: Wt 158.9 kg
[2024-02-01] MEDS ORDERED: NS 1,000 ML IV ONE (15:30)
[2024-02-01] MEDS ORDERED: Ondansetron 4 MG/2 ML VIAL IV ONE (15:30)
[2024-02-01 16:13] LABS: BASO # 0.01 K/mm3 (0.02-0.10); EOS # 0.57 K/mm3 (0.04-0.40); EOS % 5.7 % (1.0-5.0); HEMATOCRIT 40.3 % (37.0-47.0); HEMOGLOBIN 12.8 g/dL (12.5-16.0); LYMPH# 2.57 K/mm3 (1.50-4.00); MEAN CELL VOLUME 91 fl (78-100); MEAN CORPUSCULAR HEMOGLOBIN 29 pg (27-31); MEAN CORPUSCULAR HGB CONC 32 g/dL (33-37); MEAN PLATELET VOLUME 8.9 fl (7.4-10.4); MONO # 0.64 K/mm3 (0.20-0.80); NEU # 6.21 K/mm3 (1.40-6.50); PLATELET COUNT 325 K/mm3 (130-400); RED BLOOD COUNT 4.44 M/mm3 (4.10-5.30); RED CELL DISTRIBUTION WIDTH 14.3 % (11.5-14.5)
[2024-02-01 16:21] LABS: ALBUMIN 4.1 g/dL (3.5-5.0)
[2024-02-01 16:22] LABS: CALCIUM 9.3 mg/dL (8.3-10.5)
[2024-02-01 16:24] LABS: TOTAL PROTEIN 6.8 g/dL (6.4-8.3)
[2024-02-01 16:26] LABS: TOTAL BILIRUBIN 0.3 mg/dL (0.2-1.2)
[2024-02-01] MEDS ORDERED: ZOFRAN ODT4 MG PO (17:00)
[2024-02-01 17:20] VITALS: BP 120/72
== END 2024-02-01 17:23 | disposition home or self-care (01) ==
LOC: ED 15:13
PROVIDERS: Family Medicine
DX: K52.9 Noninfective gastroenteritis and colitis, unspecified (principal); E10.9 Type 1 diabetes mellitus without complications; E66.01 Morbid (severe) obesity due to excess calories; Z90.49 Acquired absence of other specified parts of digestive tract; Z98.61 Coronary angioplasty status
CPT/HCPCS: J2405; J7030

== ENCOUNTER → 2024-03-01 | Outpatient (REF) | payer MEDICARE, MEDICAID ==
[~2024-03-01] MED LIST changes: +KETOROLAC10 MG PO; +PROPRANOLOL HCL60 M3 PO; +TEMAZEPAM30 M1 PO
== END ==
LOC: LAB 17:21
DX: R50.9 Fever, unspecified (principal); Z20.822 Contact with and (suspected) exposure to COVID-19

== ENCOUNTER 2024-03-06 16:38 | Emergency (ER) | payer MEDICARE, MEDICAID ==
[~2024-03-06] VITALS: Ht 167.6 cm; Wt 156.4 kg
[~2024-03-06 16:38] MED LIST changes: -KETOROLAC10 MG PO; -TEMAZEPAM30 M1 PO
[2024-03-06] MEDS ORDERED: TEMAZEPAM30 M1 PO (16:53)
[2024-03-06] MEDS ORDERED: ZALEPLON10 MG PO (16:54)
[2024-03-06] MEDS ORDERED: Promethazine 50 MG/ML 1 ML VIAL IM ONE (17:00)
[2024-03-06] MEDS ORDERED: Ketorolac 30 MG/ML VIAL IM ONE (17:00)
[2024-03-06] MEDS ORDERED: diphenhydrAMINE 50 MG/ML 1 ML VIAL IM ONE (17:00)
[2024-03-06] MEDS ORDERED: PHENERGAN 25 TA25 MG PO (18:20)
[2024-03-06] MEDS ORDERED: KETOROLAC10 MG PO (18:20)
[2024-03-06] MEDS ORDERED: oxyCODONE/Acetaminophen 5-325 MG TAB PO ONE (18:30)
[2024-03-06] MEDS ORDERED: Home oxyCODONE/Acetaminophen 5/325 MG #4 TAB/PACK PO ONE (18:30)
[2024-03-06 18:39] VITALS: BP 121/79
== END 2024-03-06 18:43 | disposition home or self-care (01) ==
LOC: ED 16:38
DX: M25.552 Pain in left hip (principal); G43.909 Migraine, unspecified, not intractable, without status migrainosus; E11.9 Type 2 diabetes mellitus without complications; E66.01 Morbid (severe) obesity due to excess calories; Z98.61 Coronary angioplasty status; Z79.4 Long term (current) use of insulin; Z96.41 Presence of insulin pump (external) (internal); W19.XXXA Unspecified fall, initial encounter
CPT/HCPCS: J1200; J1885; J2550

== ENCOUNTER → 2024-03-11 | Outpatient (REF) | payer MEDICARE, MEDICAID ==
[~2024-03-11] MED LIST changes: +KETOROLAC10 MG PO; +TEMAZEPAM30 M1 PO
== END ==
LOC: LAB 19:00
DX: R05.9 Cough, unspecified (principal)

== ENCOUNTER 2024-03-19 19:14 | Emergency (ER) | payer MEDICARE, MEDICAID ==
[~2024-03-19] VITALS: Ht 167.6 cm; Wt 156.2 kg
[2024-03-19 19:27] VITALS: BP 126/75
[2024-03-19] MEDS ORDERED: Acetaminophen 325 MG TAB PO ONE (20:00)
== END 2024-03-19 20:43 | disposition home or self-care (01) ==
LOC: ED 19:14
DX: S09.90XA Unspecified injury of head, initial encounter (principal); W22.09XA Striking against other stationary object, initial encounter

== ENCOUNTER 2024-03-22 19:32 | Emergency (ER) | payer MEDICARE, MEDICAID ==
[~2024-03-22] VITALS: Ht 167.6 cm; Wt 156.0 kg
[2024-03-22] MEDS ORDERED: diphenhydrAMINE 50 MG/ML 1 ML VIAL IM ONE (20:00)
[2024-03-22] MEDS ORDERED: Promethazine 50 MG/ML 1 ML VIAL IM ONE (20:00)
[2024-03-22] MEDS ORDERED: HYDROcodone/Acetaminophen 10-325 MG TAB PO ONE (20:00)
[2024-03-22] MEDS ORDERED: Ketorolac 30 MG/ML VIAL IM ONE (20:00)
[2024-03-22] MEDS ORDERED: NORCO 10-325 T1 EACH PO (20:45)
[2024-03-22 20:55] VITALS: BP 133/70
[2024-03-22] MEDS ORDERED: Home HYDROcodone/Acetaminophen 5/325 MG #4 TABS/PACK PO ONE (21:00)
== END 2024-03-22 20:58 | disposition home or self-care (01) ==
LOC: ED 19:32
DX: G43.909 Migraine, unspecified, not intractable, without status migrainosus (principal)
CPT/HCPCS: J1200; J1885; J2550

== ENCOUNTER 2024-03-24 20:36 | Emergency (ER) | payer MEDICARE, MEDICAID ==
[~2024-03-24] VITALS: Ht 167.6 cm; Wt 154.5 kg
[~2024-03-24 20:36] MED LIST changes: +NORCO 10-325 T1 EACH PO
[2024-03-24 21:20] LABS: ALBUMIN 4.2 g/dL (3.5-5.0)
[2024-03-24 21:21] LABS: SODIUM 140 mmol/L (136-145)
[2024-03-24 21:22] LABS: CALCIUM 9.3 mg/dL (8.3-10.5)
[2024-03-24 21:23] LABS: GLUCOSE 202 mg/dL (65-105); TOTAL PROTEIN 7.3 g/dL (6.4-8.3)
[2024-03-24 21:24] LABS: BASO # 0.01 K/mm3 (0.02-0.10); CARBON DIOXIDE 22 mmol/L (22-29); EOS # 0.38 K/mm3 (0.04-0.40); EOS % 4.3 % (1.0-5.0); HEMOGLOBIN 13.2 g/dL (12.5-16.0); LYMPH# 2.47 K/mm3 (1.50-4.00); MEAN CELL VOLUME 91 fl (78-100); MEAN CORPUSCULAR HEMOGLOBIN 29 pg (27-31); MEAN CORPUSCULAR HGB CONC 32 g/dL (33-37); MEAN PLATELET VOLUME 8.8 fl (7.4-10.4); MONO # 0.51 K/mm3 (0.20-0.80); NEU # 5.43 K/mm3 (1.40-6.50); PLATELET COUNT 304 K/mm3 (130-400); RED CELL DISTRIBUTION WIDTH 13.4 % (11.5-14.5); WHITE BLOOD COUNT 8.8 K/mm3 (4.8-10.8)
[2024-03-24 21:25] LABS: TOTAL BILIRUBIN 0.3 mg/dL (0.2-1.2)
[2024-03-24 21:28] LABS: AST-SGOT 18 U/L (5-34)
[2024-03-24 21:29] LABS: ALCOHOL IN-HOUSE < 10 mg/dL (<10)
[2024-03-24 21:30] LABS: URINE APPEARANCE CLOUDY (CLEAR); URINE BILIRUBIN NEGATIVE (NEGATIVE); URINE BLOOD NEGATIVE (NEGATIVE); URINE COLOR YELLOW (YELLOW); URINE GLUCOSE NEGATIVE (NEGATIVE); URINE KETONE NEGATIVE (NEGATIVE); URINE LEUKOCYTE ESTERASE NEGATIVE (NEGATIVE); URINE NITRATE NEGATIVE (NEGATIVE); URINE PROTEIN(semi-quant) NEGATIVE (NEGATIVE)
[2024-03-24 21:30] LABS: ALT/SGPT 17 U/L (0-55)
[2024-03-24 21:31] LABS: URINE MUCUS PRESENT (NOT PRESENT)
[2024-03-24] MEDS ORDERED: MIXED AMPHETAMI30 M1 PO (22:03)
[2024-03-25 04:44] VITALS: BP 126/83
[2024-03-25 10:59] VITALS: BP 126/86
== END 2024-03-25 11:01 | disposition home or self-care (01) ==
LOC: ED 20:36
PROVIDERS: Family Medicine
DX: R45.851 Suicidal ideations (principal); Z86.59 Personal history of other mental and behavioral disorders; Z98.61 Coronary angioplasty status

== ENCOUNTER → 2024-05-13 | Outpatient (CLI) | payer MEDICARE, MEDICAID ==
[~2024-05-13] MED LIST changes: +GABAPENTIN100 MG PO; +MIXED AMPHETAMI30 M1 PO
== END ==
LOC: LAB 10:18
DX: E11.9 Type 2 diabetes mellitus without complications (principal)

== ENCOUNTER 2024-05-18 18:37 | Emergency (ER) | payer MEDICARE, MEDICAID ==
[~2024-05-18] VITALS: Ht 167.6 cm; Wt 149.8 kg
[2024-05-18 19:29] LABS: BASO # 0.01 K/mm3 (0.02-0.10); EOS # 0.41 K/mm3 (0.04-0.40); EOS % 4.2 % (1.0-5.0); HEMOGLOBIN 13.2 g/dL (12.5-16.0); MEAN CELL VOLUME 94 fl (78-100); MEAN CORPUSCULAR HEMOGLOBIN 30 pg (27-31); MEAN CORPUSCULAR HGB CONC 32 g/dL (33-37); MEAN PLATELET VOLUME 8.6 fl (7.4-10.4); MONO # 0.67 K/mm3 (0.20-0.80); NEU # 6.06 K/mm3 (1.40-6.50); PLATELET COUNT 281 K/mm3 (130-400); RED BLOOD COUNT 4.38 M/mm3 (4.10-5.30); RED CELL DISTRIBUTION WIDTH 13.7 % (11.5-14.5); WHITE BLOOD COUNT 9.7 K/mm3 (4.8-10.8)
[2024-05-18 19:33] LABS: ALBUMIN 4.1 g/dL (3.5-5.0)
[2024-05-18 19:35] LABS: CALCIUM 8.7 mg/dL (8.3-10.5)
[2024-05-18 19:36] LABS: TOTAL PROTEIN 7.3 g/dL (6.4-8.3)
[2024-05-18 19:38] LABS: TOTAL BILIRUBIN 0.3 mg/dL (0.2-1.2)
[2024-05-18 22:26] VITALS: BP 130/78
== END 2024-05-18 22:32 | disposition home or self-care (01) ==
LOC: ED 18:37
PROVIDERS: Family Medicine
DX: R07.89 Other chest pain (principal); E66.01 Morbid (severe) obesity due to excess calories